=== PATIENT | female | born 1980 | race Caucasian/White ===

== ENCOUNTER 2020-07-09 12:16 | Outpatient (REF) | payer MEDICAID, SELFPAY ==
[2020-07-09 13:20] LABS: Hematocrit 27.6 % (37-47); Hemoglobin 9.5 g/dl (12.0-16.0); Mean Corpuscular HGB Conc 34.4 g/dl (31.0-35.0); Mean Corpuscular Hemoglobin 34.8 pg (27.0-33.0); Mean Corpuscular Volume 101.1 fL (80-98); Mean Platelet Volume 9.5 fL (9.4-12.3); Platelet Count 300 X10*3/uL (160-400); Red Blood Count 2.73 X10*6/uL (4.20-5.50); Red Cell Distribution Width 14.6 % (11.0-16.0); White Blood Count 8.9 X10*3/uL (4.8-10.8)
[2020-07-09 13:45] LABS: Alanine Aminotransferase 13 U/L (0-31); Albumin Level 4.2 g/dL (3.5-5.0); Alkaline Phosphatase 68 U/L (39-117); Anion Gap 12 (12-20); Aspartate Amino Transferase 25 U/L (5-31); Blood Urea Nitrogen 9 mg/dL (9-16); Calcium 8.9 mg/dL (8.4-10.2); Carbon Dioxide 24 mmol/L (22-29); Chloride 107 mmol/L (96-108); Estimated Glomerular Filt Rate > 60; Glucose Random 84 mg/dL (60-115); Sodium 138 mmol/L (135-145); Total Protein 7.9 g/dL (6.5-8.0)
[2020-07-09 14:05] LABS: Ferritin 463 ng/mL (10-122); Thyroid Stimulating Hormone 1.33 uIU/mL (0.32-4.0)
[2020-07-09 14:06] LABS: Vitamin B12 233 pg/mL (200-900)
== END 2020-07-09 12:17 | disposition home or self-care (01) ==
LOC: HO.LAB 12:16
PROVIDERS: PCP Family Medicine; Visit Provider Family Medicine
DX: D57.1 Sickle-cell disease without crisis (principal); E55.9 Vitamin D deficiency, unspecified; R63.0 Anorexia; R63.4 Abnormal weight loss; Z68.21 Body mass index [BMI] 21.0-21.9, adult
CPT/HCPCS: 36415; 80053; 82306; 82607; 82728; 84134; 84443; 85027

== ENCOUNTER 2020-12-25 15:21 | Outpatient (REF) | payer MEDICAID, SELFPAY ==
--- NOTE | ~2020-12-25 | XR_ITS ---
EXAMINATION: XR HUMERUS, LEFT CLINICAL INFORMATION: Contusion left upper arm COMPARISON: Left shoulder x-ray March 2011 TECHNIQUE: AP and lateral views of the left humerus. FINDINGS: No fracture or dislocation is seen. 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 There is heterogeneous attenuation of the left humeral head questionable for AVN. This is unchanged from previous exam. Soft tissues are unremarkable. XR/XR humerus LT IMPRESSION: No fracture or dislocation seen. 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
== END 2020-12-25 15:22 | disposition home or self-care (01) ==
LOC: HO.XRAY 15:21
PROVIDERS: Absent Provider Family Medicine; PCP Family Medicine; Visit Provider Emergency Medicine
DX: S40.022A Contusion of left upper arm, initial encounter (principal)
CPT/HCPCS: 73060

== ENCOUNTER 2021-03-06 10:23 | Outpatient (REF) | payer MEDICAID, SELFPAY | END 2021-03-06 10:24 | disposition home or self-care (01) | LOC: HO.LAB 10:23 | PROVIDERS: Visit Provider Internal Medicine | DX: Z20.822 Contact with and (suspected) exposure to COVID-19 (principal) | CPT/HCPCS: C9803; U0003; U0005 ==

== ENCOUNTER 2021-03-20 13:00 | Outpatient (REF) | payer MEDICAID, SELFPAY ==
[2021-03-20 15:19] LABS: Binax Now Covid-19 Ag Negative (Negative)
[2021-03-20 15:20] LABS: Binax Internal Control QC Valid
== END 2021-03-20 13:01 | disposition home or self-care (01) ==
LOC: HO.LAB 13:00
PROVIDERS: Visit Provider Internal Medicine
DX: Z20.822 Contact with and (suspected) exposure to COVID-19 (principal)
CPT/HCPCS: C9803

== ENCOUNTER 2021-11-17 16:04 | Emergency (ER) | payer MEDICAID, SELFPAY ==
--- NOTE | ~2021-11-17 | XR_ITS ---
EXAMINATION: XR CHEST CLINICAL INFORMATION: Cough and chest discomfort COMPARISON: None TECHNIQUE: 2 views of the chest were obtained. 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 No significant abnormality is noted involving the heart, lungs, mediastinum, or soft tissues. XR/XR chest 2V IMPRESSION: No infiltrate. Correlate clinically concerning acute chest syndrome in this patient with changes of sickle cell disease..
[2021-11-17 16:30] VITALS: BP 115/85; PULSE 119; RESP 16; TEMP 37.7; O2SAT 97
[2021-11-17] MEDS: Acetaminophen 325 MG TABLET 650 MG PO (16:44)
[2021-11-17] MEDS: Ondansetron ODT 4 MG TAB.RAPDIS TRANSLINGU (16:45)
--- NOTE | 2021-11-17 17:25 | ED_ITS ---
HPI - URI/Sore Throat General Chief Complaint: Upper Respiratory Symptoms <Diana Ramos NP - Last Filed: 11/17/21 18:57> Stated Complaint: covid + <Diana Ramos NP - Last Filed: 11/17/21 18:57> Time Seen by Provider: 11/17/21 17:25 <Diana Ramos NP - Last Filed: 11/17/21 18:57> Source: patient and translator/interpreter <Diana Ramos NP - Last Filed: 11/17/21 18:57> Mode of arrival: ambulatory <iDana Ramos NP - Last Filed: 11/17/21 18:57> Limitations: language barrier <Diana Ramos NP - Last Filed: 11/17/21 18:57> History of Present Illness HPI Narrative: 41-year-old female with a history of sickle cell disease presents with reports of nausea, chills, body aches, cough, chest discomfort with coughing and headache which began last night. She took a home COVID test which was positive. No shortness of breath, vomiting, diarrhea, abdominal pain, skin rash, neck pain/stiffness. She has received 3 COVID vaccinations of Moderna. She has not had a sickle cell crisis and many years. She has no history of acute chest. She denies this feeling like a sickle cell crisis and states this feels different. She its taking folic acid/hydroxyurea daily. <Diana Ramos NP - Last Filed: 11/17/21 18:57> Related Data Home Medications: Home Medications Medication Instructions Recorded Confirmed calcium 600 mg capsule 600 mg PO DAILY 06/01/20 06/10/21 fluticasone propionate 50 1 spray intranasal BID 06/01/20 06/10/21 mcg/actuation nasal spray,suspension folic acid 5 mg capsule 5 mg PO QWEEK 06/01/20 06/10/21 hydroxyurea (sickle cell) 400 mg 400 mg PO DAILY 06/01/20 06/10/21 capsule loratadine 10 mg tablet 10 mg PO DAILY 06/01/20 06/10/21 morphine 15 mg immediate release 15 mg PO Q4H PRN Pain 06/01/20 06/10/21 tablet oxycodone 10 mg tablet 10 mg PO BID PRN Pain 06/01/20 06/10/21 epinephrine 0.3 mg/0.3 mL 0.3 mg IM Q4H PRN Allergic Reaction 06/10/21 06/10/21 injection, auto-injector (EpiPen) <EDGAR Nova Last Filed: 11/17/21 18:57> Allergies/Adverse Reactions: Allergies Allergy/AdvReac Type Severity Reaction Status Date / Time ibuprofen [IBUPROFEN] Allergy Intermediate HIVES, Unverified 06/10/21 11:49 FACIAL SWELLING ketorolac [From TORADOL] Allergy Intermediate SWELLING Unverified 06/10/21 11:49 <Diana Ramos NP - Last Filed: 11/17/21 18:57> Review of Systems Review of Systems: Yes all other systems are reviewed and are negative <EDGAR Nova Last Filed: 11/17/21 18:57> Constitutional: Constitutional: Reports no additional constitutional complaints, Reports body ache(s), Reports chills, Denies fever(s), Reports headache(s) and Denies weakness <Diana Ramos NP - Last Filed: 11/17/21 18:57> Eyes: Eyes: Reports no additional eye complaints and Denies change in vision <EDGAR Nova Last Filed: 11/17/21 18:57> ENT: Reports system reviewed and no additional complaints, except as d ocumented, Denies dizziness, Reports headache(s), Denies nasal congestion, Denies nasal discharge and Denies neck pain <Diana Ramos NP - Last Filed: 11/17/21 18:57> Cardiovascular: Cardiovascular: Reports no additional cardiovascular complaints, Reports chest pain, Denies leg edema and Denies dyspnea <EDGAR Nova Last Filed: 11/17/21 18:57> Respiratory: Respiratory: Reports no additional respiratory complaints, Reports cough and Denies dyspnea <EDGAR Nova Last Filed: 11/17/21 18:57> Gastrointestinal: Gastrointestinal: Reports no additional gastrointestinal complaints, Denies abdominal pain, Denies diarrhea, Reports nausea and Denies vomiting <Diana Ramos NP - Last Filed: 11/17/21 18:57> Genitourinary: Genitourinary: Reports no additional female genitourinary complaints and Denies urinary incontinence <Diana Ramos NP - Last Filed: 11/17/21 18:57> Musculoskeletal: Musculoskeletal: Reports no additional musculoskeletal complaints, Denies back pain, Denies arthralgias, Denies joint swelling, Denies neck pain, Denies numbness and Denies tingling <Diana Ramos NP - Last Filed: 11/17/21 18:57> Integumentary/Breasts: Skin/Breast: Reports system reviewed and no additional complaints, except as docu and Denies rash <Diana Ramos NP - Last File d: 11/17/21 18:57> Neurologic: Denies Abnormal speech present, Denies dizziness, Reports headache(s), Denies numbness, Denies tingling and Denies weakness <Diana Ramos NP - Last Filed: 11/17/21 18:57> [facility] Past Medical History Attestation statement: The following information was validated with the patient. <Diana palacios NP - Last Filed: 11/17/21 18:57> Source: old records reviewed and nursing notes reviewed <Diana Ramos NP - Last Filed: 11/17/21 18:57> Medical History: Medical History Hx of osteomyelitis <Diana Ramos NP - Last Filed: 11/17/21 18:57> Surgical History: Surgical History H/O adenoidectomy History of surgery on left wrist <Diana Ramos NP - Last Filed: 11/17/21 18:57> Family History Family History: Family History Mother Hx of breast cancer <Diana Ramos NP - Last Filed: 11/17/21 18:57> Social History Social History: Social History Household Members: None Housing: House Are you a primary campground caretaker to a significant other at home: No Do you presently have visiting nurse 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 home 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 (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) Alcohol intake: never Patient Tobacco Use Status: Never used Tobacco Advance Directives: No Advance Directives Information Provided: Yes service: No Current occupational status: unemployed <Diana Ramos NP - Last Filed: 11/17/21 18:57> Physical Exam Vital Signs: Vital Signs: Last Vital Signs Temp 99.8 F 11/17/21 16:30 Pulse 119 H 11/17/21 16:30 Resp 16 11/17/21 16:30 BP 115/85 11/17/21 16:30 Pulse Ox 97 11/17/21 16:30 O2 Del Method 11/17/21 16:30 BMI result Body Mass Index 20.0 <Diana Ramos NP - Last Filed: 11/17/21 18:57> Vital Signs: Last Vital Signs Temp 99.8 F 11/17/21 16:30 Pulse 119 H 11/17/21 16:30 Resp 16 11/17/21 16:30 BP 115/85 11/17/21 16:30 Pulse Ox 97 11/17/21 16:30 O2 Del Method 11/17/21 16:30 BMI result Body Mass Index 20.0 <TEODORA Irvin - Last Filed: 11/17/21 19:20> Const: General: cooperative, healthy appearing, comfortable and no acute distress <Diana Ramos NP - Last Filed: 11/17/21 18:57> Orientation/consciousness: patient oriented x3 <Diana Ramos NP - Last Filed: 11/17/21 18:57> Limitations: no limitations <Diana Ramos NP - Last Filed: 11/17/21 18:57> HEENT: Head: Yes normal to inspection <Diana Ramos NP - Last Filed: 11/17/21 18:57> Ears: hearing grossly normal bilaterally <Diana Ramos NP - Last Filed: 11/17/21 18:57> General nose exam: Normal external nose present <Diana Ramos NP - Last Filed: 11/17/21 18:57> Face and sinus: Yes normal facial exam <Diana Ramos NP - Last Filed: 11/17/21 18:57> Mouth: Normal oral and palatal mucosa present <Diana Ramos NP - Last Filed: 11/17/21 18:57> Throat: Yes posterior oropharynx normal <Diana Ramos NP - Last Filed: 11/17/21 18:57> Eyes: General: appearance normal, both eyes and all related structures <Diana Ramso NP - Last Filed: 11/17/21 18:57> Pupils: Equal, round and reactive pupils present <Diana Ramos NP - Last Filed: 11/17/21 18:57> Neck: Neck: Yes normal visual inspection <Diana Ramos NP - Last Filed: 11/17/21 18:57> Chest: Chest palpation & inspection: normal inspection of the chest <Diana Ramos NP - Last Filed: 11/17/21 18:57> Resp: Effort & Inspection: normal respiratory effort <Diana Ramos NP - Last Filed: 11/17/21 18:57> Auscultation: clear to auscultation bilaterally <Diana Ramos NP - Last Filed: 11/17/21 18:57> Cardio: Rate: tachycardic <Diana Ramos NP - Last Filed: 11/17/21 18:57> Rhythm: regular rhythm <Diana Ramos NP - Last Filed: 11/17/21 18:57> Peripheral pulses: Peripheral pulses 2+ throughout <Diana Ramos NP - Last Filed: 11/17/21 18:57> GI: Inspection: Yes normal to inspection <Diana Ramos NP - Last Filed: 11/17/21 18:57> Palpation (GI): Soft to palpation and nontender <Diana Ramos NP - Last Filed: 11/17/21 18:57> Auscultation: normal bowel sounds <Diana Ramos NP - Last Filed: 11/17/21 18:57> Back/Spine/Pelvis: Thoracic/Lumbar Spine: thoracic and lumbar spine normal to inspection <Diana Ramos NP - Last Filed: 11/17/21 18:57> Skin: General skin exam: no rashes or lesions noted <Diana Ramos NP - Last Filed: 11/17/21 18:57> Neuro: General: patient oriented x3, no focal motor deficits and normal sensation to monofilament <Diana Ramos NP - Last Filed: 11/17/21 18:57> Cranial nerves: Yes Equal, round and reactive pupils present <Diana Khan i CERTIFIED HAND THERAPIST - Last Filed: 11/17/21 18:57> Cognition (Neuro): normal cognition <Diana Ramos NP - Last Filed: 11/17/21 18:57> Speech: No Abnormal speech present <Diana Ramos NP - Last Filed: 0 11/17/21 18:57> Gait exam (Neuro): Normal gait present <Diana Ramos NP - Last Filed: 11/17/21 18:57> Motor exam (neuro): 5/5 motor strength present throughout <Diana Ramos NP - Last Filed: 11/17/21 18:57> Extrem: General: Yes normal to inspection <Diana Ramos NP - Last Filed: 11/17/21 18:57> Course Course Course Narrative: 1899-Sign out to Alisha ARAIZA pending labs, EKG, re-evaluation <Diana Ramos NP - Last Filed: 11/17/21 18:57> 190-Sign out to Alisha ARAIZA pending labs, EKG, re-evaluation 7 - Patient is a 41 year old female presenting to the emergency department today with COVID-19. Patient's physical exam was unremarkable. Patient's blood work was unremarkable. Patient's EKG was unremarkable. Patient's chest x-ray showed no acute process. I explained my physical exam findings as well as all test results to the patient. I answered all questions asked by the patient. Patient received IV fluids and PO Tylenol which she stated helped her symptoms significantly. I stressed the importance of the patient taking her medication as prescribed. I stressed the importance of the patient following up with her primary care provider. I stressed the importance of the patient returning to the emergency department immediately if her symptoms were to worsen or if she were to develop any dizziness, shortness of breath, difficulty breathing, chest pain, blurry vision, loss of vision, nausea, vomiting, abdominal pain, fever, chills, back pain, or any other complaints. Patient verbalized agreement and understanding with this treatment plan and discharge. <TEODORA Irvin - Last Filed: 11/17/21 19:20> MDM - URI/Sore Throat MDM Narrative Medical decision making narrative: 41-year-old female who took a home COVID test that was positive who has symptoms since last night of cough, chest discomfort with coughing, body aches, chills, nausea, headache. On arrival patient has a low-grade fever of 99.8 and some tachycardia with a heart rate of 119. She tells me decreased p.o. intake secondary to nausea. No vomiting or diarrhea. Patient received Zofran and Tylenol at triage. Patient does have some mild chest discomfort with coughing only. Not pleuritic in nature. No calf swelling, calf pain, shortness of breath. Does not seem c/w with acute chest. Patient states these symptoms do not feel like her sickle cell crisis. Will check COVID screen, chest x-ray, EKG. Patient would qualify for Paxlovid so I will check some labs on her. Additionally will check reticulocyte count. Patient and family were provided a fax sheet on Paxlovid to review. For the tachycardia patient will receive 2 L of IV fluid. -Doubt PE. NO tachypnea, hypoxia, clinical findings concerning for DVT, PE <Diana Ramos NP - Last Filed: 11/17/21 18:57> Medical Records Attestation: I reviewed the patient's medical records. <Diana Ramos NP - Last Filed: 11/17/21 18:57> Lab Data Attestation: I reviewed the patient's lab results. <Diana Ramos NP - Last Filed: 11/17/21 18:57> Result diagrams: : 11/17/21 16:39 11/17/21 16:39 <Diana Ramos CERTIFIED HAND THERAPIST - Last Filed: 11/17/21 18:57> Labs: Lab Results 11/17/21 11/17/21 11/17/21 Range/Units 16:39 16:39 16:39 WBC 6.3 (4.8-10.8) X10*3/uL RBC 2.80 L (4.20-5.50) X10*6/uL Hgb 9.8 L (12.0-16.0) g/dl Hct 27.3 L (37.0-47.0) % MCV 97.5 (80.0-98.0) fL MCH 35.0 H (27.0-33.0) pg MCHC 35.9 H (31.0-35.0) g/dl RDW 15.5 (11.0-16.0) % Plt Count 256 (160-400) X10*3/uL MPV 10.1 (9.4-12.3) fL Immature Gran % (Auto) Cancelled Neut % (Auto) Cancelled Lymph % (Auto) Cancelled [place] % (Auto) Cancelled Eos % (Auto) Cancelled Baso % (Auto) Cancelled Lymph # (Auto) Cancelled [place] # (Auto) Cancelled Eos # (Auto) Cancelled Baso # (Auto) Cancelled Abs Immat Gran (auto) Cancelled Absolute Neuts (auto) Cancelled Absolute Nucleated RBC 0.920 H (0.0-0.012) X10*3/uL Nucleated RBC % (auto) 14.7 H (0.0-0.2) /100WBC Neutrophils % (Manual) 68 (45-73) % Band Neutrophils % 3 (3-5) % Lymphocytes % (Manual) 14 L (20-40) % Monocytes % (Manual) 15 H (2-11) % Abs Neuts (Manual) 4.5 (2.0-8.3) X10*3/uL Lymphocytes # (Manual) 0.9 L (1.2-4.9) X10*3/uL Monocytes # (Manual) 0.9 (0.1-1.2) X10*3/uL Nucleated RBCs 12 H (0-0) /100WBC Platelet Estimate NORMAL (NORMAL) Plt Morphology Comment NORMAL RBC Morphology NOTED Polychromasia 1+ (0-2) /OIF Microcytosis 1+ (5-14) /OIF Macrocytosis 2+ (15-30) /OIF Sickle Cells 3+ (>5) /OIF Target Cells 1+ (5-14) /OIF Tear Drop Cells 2+ (3-5) /OIF Absolute Retic (0.026-0.095) X10*6/uL Percent Retic (0.5-1.8) % Immature Retic Fraction (3.0-15.9) % Retic Hgb Equivalent (30.0-35.0) pg Sodium 140 (135-145) mmol/L Potassium 3.7 (3.3-5.1) mmol/L Chloride 106 (96-108) mmol/L Carbon Dioxide 20 L (22-29) mmol/L Anion Gap 18 (12-20) BUN 6 L (9-16) mg/dL Creatinine 0.77 (0.5-1.4) mg/dL Estim Creat Clear Calc 78.8 Estimated GFR > 60 Random Glucose 105 (60-115) mg/dL Calcium 8.9 (8.4-10.2) mg/dL Total Bilirubin 1.0 (0.0-1.0) mg/dL Direct Bilirubin 0.4 (0.0-0.5) mg/dL AST 72 H (5-31) U/L ALT 54 H (0-31) U/L Alkaline Phosphatase 116 D (39-117) U/L Troponin I High Sens (<3.5-17.0) ng/L Total Protein 8.4 H (6.5-8.0) g/dL Albumin 4.3 (3.5-5.0) g/dL COVID-19 (LILLIAN) Positive A (Negative) COVID-19 Clin Com See Note 11/17/21 11/17/21 Range/Units 16:39 16:39 WBC (4.8-10.8) X10*3/uL RBC (4.20-5.50) X10*6/uL Hgb (12.0-16.0) g/dl Hct (37.0-47.0) % MCV (80.0-98.0) fL MCH (27.0-33.0) pg MCHC (31.0-35.0) g/dl RDW (11.0-16.0) % Plt Count (160-400) X10*3/uL MPV (9.4-12.3) fL Immature Gran % (Auto) Neut % (Auto) Lymph % (Auto) [place] % (Auto) Eos % (Auto) Baso % (Auto) Lymph # (Auto) [place] # (Auto) Eos # (Auto) Baso # (Auto) Abs Immat Gran (auto) Absolute Neuts (auto) Absolute Nucleated RBC (0.0-0.012) X10*3/uL Nucleated RBC % (auto) (0.0-0.2) /100WBC Neutrophils % (Manual) (45-73) % Band Neutrophils % (3-5) % Lymphocytes % (Manual) (20-40) % Monocytes % (Manual) (2-11) % Abs Neuts (Manual) (2.0-8.3) X10*3/uL Lymphocytes # (Manual) (1.2-4.9) X10*3/uL Monocytes # (Manual) (0.1-1.2) X10*3/uL Nucleated RBCs (0-0) /100WBC Platelet Estimate (NORMAL) Plt Morphology Comment RBC Morphology Polychromasia /OIF Microcytosis /OIF Macrocytosis /OIF Sickle Cells /OIF Target Cells /OIF Tear Drop Cells /OIF Absolute Retic 0.178 H (0.026-0.095) X10*6/uL Percent Retic 6.3 H (0.5-1.8) % Immature Retic Fraction 38.7 H (3.0-15.9) % Retic Hgb Equivalent 39.5 H (30.0-35.0) pg Sodium (135-145) mmol/L Potassium (3.3-5.1) mmol/L Chloride (96-108) mmol/L Carbon Dioxide (22-29) mmol/L Anion Gap (12-20) BUN (9-16) mg/dL Creatinine (0.5-1.4) mg/dL Estim Creat Clear Calc Estimated GFR Random Glucose (60-115) mg/dL Calcium (8.4-10.2) mg/dL Total Bilirubin (0.0-1.0) mg/dL Direct Bilirubin (0.0-0.5) mg/dL AST (5-31) U/L ALT (0-31) U/L Alkaline Phosphatase (39-117) U/L Troponin I High Sens < 3.5 (<3.5-17.0) ng/L Total Protein (6.5-8.0) g/dL Albumin (3.5-5.0) g/dL COVID-19 (LILLIAN) (Negative) COVID-19 Clin Com <Diana Ramos NP - Last Filed: 11/17/21 18:57> Lab Results 11/17/21 11/17/21 11/17/21 Range/Units 16:39 16:39 16:39 WBC 6.3 (4.8-10.8) X10*3/uL RBC 2.80 L (4.20-5.50) X10*6/uL Hgb 9.8 L (12.0-16.0) g/dl Hct 27.3 L (37.0-47.0) % MCV 97.5 (80.0-98.0) fL MCH 35.0 H (27.0-33.0) pg MCHC 35.9 H (31.0-35.0) g/dl RDW 15.5 (11.0-16.0) % Plt Count 256 (160-400) X10*3/uL MPV 10.1 (9.4-12.3) fL Immature Gran % (Auto) Cancelled Neut % (Auto) Cancelled Lymph % (Auto) Cancelled [place] % (Auto) Cancelled Eos % (Auto) Cancelled Baso % (Auto) Cancelled Lymph # (Auto) Cancelled [place] # (Auto) Cancelled Eos # (Auto) Cancelled Baso # (Auto) Cancelled Abs Immat Gran (auto) Cancelled Absolute Neuts (auto) Cancelled Absolute Nucleated RBC 0.920 H (0.0-0.012) X10*3/uL Nucleated RBC % (auto) 14.7 H (0.0-0.2) /100WBC Neutrophils % (Manual) 68 (45-73) % Band Neutrophils % 3 (3-5) % Lymphocytes % (Manual) 14 L (20-40) % Monocytes % (Manual) 15 H (2-11) % Abs Neuts (Manual) 4.5 (2.0-8.3) X10*3/uL Lymphocytes # (Manual) 0.9 L (1.2-4.9) X10*3/uL Monocytes # (Manual) 0.9 (0.1-1.2) X10*3/uL Nucleated RBCs 12 H (0-0) /100WBC Platelet Estimate NORMAL (NORMAL) Plt Morphology Comment NORMAL RBC Morphology NOTED Polychromasia 1+ (0-2) /OIF Microcytosis 1+ (5-14) /OIF Macrocytosis 2+ (15-30) /OIF Sickle Cells 3+ (>5) /OIF Target Cells 1+ (5-14) /OIF Tear Drop Cells 2+ (3-5) /OIF Absolute Retic (0.026-0.095) X10*6/uL Percent Retic (0.5-1.8) % Immature Retic Fraction (3.0-15.9) % Retic Hgb Equivalent (30.0-35.0) pg Sodium 140 (135-145) mmol/L Potassium 3.7 (3.3-5.1) mmol/L Chloride 106 (96-108) mmol/L Carbon Dioxide 20 L (22-29) mmol/L Anion Gap 18 (12-20) BUN 6 L (9-16) mg/dL Creatinine 0.77 (0.5-1.4) mg/dL Estim Creat Clear Calc 78.8 Estimated GFR > 60 Random Glucose 105 (60-115) mg/dL Calcium 8.9 (8.4-10.2) mg/dL Total Bilirubin 1.0 (0.0-1.0) mg/dL Direct Bilirubin 0.4 (0.0-0.5) mg/dL AST 72 H (5-31) U/L ALT 54 H (0-31) U/L Alkaline Phosphatase 116 D (39-117) U/L Troponin I High Sens (<3.5-17.0) ng/L Total Protein 8.4 H (6.5-8.0) g/dL Albumin 4.3 (3.5-5.0) g/dL COVID-19 (LILLIAN) Positive A (Negative) COVID-19 Clin Com See Note 11/17/21 11/17/21 Range/Units 16:39 16:39 WBC (4.8-10.8) X10*3/uL RBC (4.20-5.50) X10*6/uL Hgb (12.0-16.0) g/dl Hct (37.0-47.0) % MCV (80.0-98.0) fL MCH (27.0-33.0) pg MCHC (31.0-35.0) g/dl RDW (11.0-16.0) % Plt Count (160-400) X10*3/uL MPV (9.4-12.3) fL Immature Gran % (Auto) Neut % (Auto) Lymph % (Auto) [place] % (Auto) Eos % (Auto) Baso % (Auto) Lymph # (Auto) [place] # (Auto) Eos # (Auto) Baso # (Auto) Abs Immat Gran (auto) Absolute Neuts (auto) Absolute Nucleated RBC (0.0-0.012) X10*3/uL Nucleated RBC % (auto) (0.0-0.2) /100WBC Neutrophils % (Manual) (45-73) % Band Neutrophils % (3-5) % Lymphocytes % (Manual) (20-40) % Monocytes % (Manual) (2-11) % Abs Neuts (Manual) (2.0-8.3) X10*3/uL Lymphocytes # (Manual) (1.2-4.9) X10*3/uL Monocytes # (Manual) (0.1-1.2) X10*3/uL Nucleated RBCs (0-0) /100WBC Platelet Estimate (NORMAL) Plt Morphology Comment RBC Morphology Polychromasia /OIF Microcytosis /OIF Macrocytosis /OIF Sickle Cells /OIF Target Cells /OIF Tear Drop Cells /OIF Absolute Retic 0.178 H (0.026-0.095) X10*6/uL Percent Retic 6.3 H (0.5-1.8) % Immature Retic Fraction 38.7 H (3.0-15.9) % Retic Hgb Equivalent 39.5 H (30.0-35.0) pg Sodium (135-145) mmol/L Potassium (3.3-5.1) mmol/L Chloride (96-108) mmol/L Carbon Dioxide (22-29) mmol/L Anion Gap (12-20) BUN (9-16) mg/dL Creatinine (0.5-1.4) mg/dL Estim Creat Clear Calc Estimated GFR Random Glucose (60-115) mg/dL Calcium (8.4-10.2) mg/dL Total Bilirubin (0.0-1.0) mg/dL Direct Bilirubin (0.0-0.5) mg/dL AST (5-31) U/L ALT (0-31) U/L Alkaline Phosphatase (39-117) U/L Troponin I High Sens < 3.5 (<3.5-17.0) ng/L Total Protein (6.5-8.0) g/dL Albumin (3.5-5.0) g/dL COVID-19 (LILLIAN) (Negative) COVID-19 Clin Com <TEODORA Irvin - Last Filed: 11/17/21 19:20> Imaging Data Chest x-ray: Attestation: I personally reviewed and interpreted this imaging study as follows: <Diana Ramos NP - Last Filed: 11/17/21 18:57> Radiologist's impression: EXAMINATION: XR CHEST CLINICAL INFORMATION: Cough and chest discomfort COMPARISON: None TECHNIQUE: 2 views of the chest were obtained. 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 No significant abnormality is noted involving the heart, lungs, mediastinum, or soft tissues. XR/XR chest 2V IMPRESSION: No infiltrate. Correlate clinically concerning acute chest syndrome in this patient with changes of sickle cell disease.. <Diana Ramos NP - Last Filed: 11/17/21 18:57> Discharge Plan Discharge Clinical Impression: COVID-19 <Diana Ramos NP - Last Filed: 11/17/21 18:57> Patient Disposition: Home, Self-Care <Diana Ramos NP - Last Filed: 11/17/21 18:57> Instructions: NABEELID-19 (Coronavirus Disease 2019) (ED) <Diana Ramos NP - Last Filed: 11/17/21 18:57> Additional Instructions: Quarantine for 5 days Increase fluids, rest Take Tylenol for pain or fever Follow up with your primary care provider. Return to the emergency department immediately if your symptoms worsen or if you develop any dizziness, shortness of breath, difficulty breathing, chest pain, blurry vision, loss of vision, nausea, vomiting, abdominal pain, fever, chills, back pain, or any other complaints. Cuarentena por 5 d?as Aumentar l?quidos, descansar [place] Tylenol para el dolor o la fiebre. Barry un seguimiento con swan proveedor de atenci?n primaria. Regrese al departamento de emergencias de inmediato si rani s?ntomas empeoran o si presenta mareos, falta de aire, dificultad para respirar, dolor de pecho, visi?n borrosa, p?rdida de la visi?n, n?useas, v?mitos, dolor abdominal, fiebre, escalofr?os, dolor de espalda o cualquier otras quejas. <Diana Ramos NP - Last Filed: 11/17/21 18:57> Prescriptions: No Action calcium 600 mg Capsule 600 mg PO DAILY folic acid 5 mg Capsule 5 mg PO QWEEK morphine 15 mg Tablet 15 mg PO Q4H PRN (Reason: Pain) fluticasone propionate 50 mcg/actuation [place],Suspension 1 spray INTRANASAL BID hydroxyurea (sickle cell) 400 mg Capsule 400 mg PO DAILY loratadine 10 mg Tablet 10 mg PO DAILY oxycodone 10 mg Tablet 10 mg PO BID PRN (Reason: Pain) epinephrine [EpiPen] 0.3 mg/0.3 mL Auto-Injector 0.3 mg IM Q4H PRN (Reason: Allergic Reaction) <Diana Ramos NP - Last Filed: 11/17/21 18:57> Referrals: Sanjuana Anderson MD [Primary Care Provider] - <Diana Ramos NP - Last Filed: 11/17/21 18:57> Stand Alone Forms: Work/School Release <Diana Ramos NP - Last Filed: 11/17/21 18:57> Print Language: Occitan <Diana Ramos CERTIFIED HAND THERAPIST - Last Filed: 11/17/21 18:57>
[2021-11-17 18:39] LABS: Hematocrit 27.3 % (37.0-47.0); Hemoglobin 9.8 g/dl (12.0-16.0); Immature Retic Fraction 38.7 % (3.0-15.9); Mean Corpuscular HGB Conc 35.9 g/dl (31.0-35.0); Mean Corpuscular Volume 97.5 fL (80.0-98.0); Mean Platelet Volume 10.1 fL (9.4-12.3); Platelet Count 256 X10*3/uL (160-400); Red Cell Distribution Width 15.5 % (11.0-16.0); Retic HGB Equivalent 39.5 pg (30.0-35.0); Reticulocyte Percent 6.3 % (0.5-1.8); Reticulocytes Absolute 0.178 X10*6/uL (0.026-0.095); White Blood Count 6.3 X10*3/uL (4.8-10.8)
[2021-11-17] MEDS: 0.9 % Sodium Chloride 1,000 ML 999 ML IV (18:42)
[2021-11-17 18:55] LABS: Alanine Aminotransferase 54 U/L (0-31); Albumin Level 4.3 g/dL (3.5-5.0); Alkaline Phosphatase 116 U/L (39-117); Anion Gap 18 (12-20); Aspartate Amino Transferase 72 U/L (5-31); Bilirubin Direct 0.4 mg/dL (0.0-0.5); Blood Urea Nitrogen 6 mg/dL (9-16); COVID-19 Test Positive (Negative); Calcium 8.9 mg/dL (8.4-10.2); Carbon Dioxide 20 mmol/L (22-29); Chloride 106 mmol/L (96-108); Creatinine Clr Calc Pharmacy 78.8; Estimated Glomerular Filt Rate > 60; Glucose Random 105 mg/dL (60-115); IDNOW Serial# 16C4AD1C; Potassium 3.7 mmol/L (3.3-5.1); Sodium 140 mmol/L (135-145); Total Protein 8.4 g/dL (6.5-8.0)
[2021-11-17 18:57] LABS: NRBC Pct Auto 14.7 /100WBC (0.0-0.2)
[2021-11-17 18:58] LABS: Troponin-I High Sensitivity < 3.5 ng/L (<3.5-17.0)
[2021-11-17 19:03] LABS: Band Neutrophils Percent 3 % (3-5); Lymphocytes Absolute Manual 0.9 X10*3/uL (1.2-4.9); Lymphocytes Percent Manual 14 % (20-40); Macrocytosis 2+ (15-30) /OIF; Monocytes Absolute Manual 0.9 X10*3/uL (0.1-1.2); Monocytes Percent Manual 15 % (2-11); Neutrophils Absolute Manual 4.5 X10*3/uL (2.0-8.3); Neutrophils Percent Manual 68 % (45-73); Nucleated Red Blood Cells 12 /100WBC (0-0); RBC Morphology NOTED
[2021-11-17 19:04] LABS: Microcytosis 1+ (5-14) /OIF; Sickle Cells 3+ (>5) /OIF
[2021-11-17 19:05] LABS: Target Cells 1+ (5-14) /OIF
[2021-11-17 19:06] LABS: Tear Drop Cells 2+ (3-5) /OIF
[2021-11-17 19:07] LABS: Polychromasia 1+ (0-2) /OIF
[2021-11-17 19:08] LABS: Platelet Estimate NORMAL (NORMAL); Platelet Morphology Comment NORMAL
== END 2021-11-17 21:30 | disposition home or self-care (01) ==
PROVIDERS: Nurse Practitioner Family; Emergency Provider Internal Medicine; PCP Family Medicine
DX: U07.1 COVID-19 (principal); Z79.899 Other long term (current) drug therapy
CPT/HCPCS: 36415; 71046; 80048; 80076; 84484; 85007; 85027; 85045; 87635; 99283

== ENCOUNTER 2021-11-29 10:57 | Emergency (ER) | payer MEDICAID, SELFPAY ==
[2021-11-29 10:59] VITALS: BP 109/79; PULSE 88; RESP 18; TEMP 36.6; O2SAT 98; BMI 18.6
--- NOTE | 2021-11-29 11:01 | ECG_ITS ---
Test Reason : chest pain Blood Pressure : / mmHG Vent. Rate : 086 BPM Atrial Rate : 086 BPM P-R Int : 154 ms QRS Dur : 058 ms QT Int : 366 ms P-R-T Axes : 054 021 040 degrees QTc Int : 437 ms Normal sinus rhythm Normal ECG When compared with ECG of 22-FEB-2018 15:46, No significant change was found Referred By: Generic ED Physician Electronically Signed By:ALDAIR RODRIGUEZ
[2021-11-29 11:14] LABS: MANUAL DIFF FLAG NO
[2021-11-29 11:17] LABS: Basophils Percent Auto 0.2 % (0-2); Eosinophils Absolute Auto 0.1 X10*3/uL (0.0-0.4); Eosinophils Percent Auto 1.3 % (0-4); Hematocrit 29.1 % (37.0-47.0); Imm Gran Abs Auto 0.02 X10*3/uL (0.00-0.03); Imm Gran Pct Auto 0.3 % (0.0-0.4); Lymphocytes Absolute Auto 1.7 X10*3/uL (1.2-4.9); Lymphocytes Percent Auto 27.1 % (20-40); Mean Corpuscular HGB Conc 34.4 g/dl (31.0-35.0); Mean Corpuscular Hemoglobin 33.9 pg (27.0-33.0); Mean Corpuscular Volume 98.6 fL (80.0-98.0); Mean Platelet Volume 9.9 fL (9.4-12.3); Monocytes Absolute Auto 0.8 X10*3/uL (0.1-1.2); Monocytes Percent Auto 12.1 % (2-11); Neutrophils Absolute Auto 3.7 x10*3/uL (2.0-8.3); Platelet Count 312 X10*3/uL (160-400); Red Blood Count 2.95 X10*6/uL (4.20-5.50); White Blood Count 6.3 X10*3/uL (4.8-10.8)
[2021-11-29 11:18] LABS: NRBC Pct Auto 4.9 /100WBC (0.0-0.2)
[2021-11-29 11:27] LABS: COVID-19 Test Positive (Negative); IDNOW Serial# 16C4AD1C
[2021-11-29 11:32] LABS: Alanine Aminotransferase 27 U/L (0-31); Albumin Level 4.3 g/dL (3.5-5.0); Alkaline Phosphatase 82 U/L (39-117); Anion Gap 13 (12-20); Aspartate Amino Transferase 29 U/L (5-31); Bilirubin Direct 0.5 mg/dL (0.0-0.5); Bilirubin Total 1.1 mg/dL (0.0-1.0); Blood Urea Nitrogen 6 mg/dL (9-16); Calcium 9.1 mg/dL (8.4-10.2); Carbon Dioxide 24 mmol/L (22-29); Chloride 106 mmol/L (96-108); Creatinine Clr Calc Pharmacy 74.9; Estimated Glomerular Filt Rate > 60; Glucose Random 91 mg/dL (60-115); Lipase 27 U/L (8-78); Potassium 4.4 mmol/L (3.3-5.1); Sodium 139 mmol/L (135-145); Total Protein 8.1 g/dL (6.5-8.0)
[2021-11-29 11:38] LABS: Troponin-I High Sensitivity < 3.5 ng/L (<3.5-17.0)
--- NOTE | 2021-11-29 14:49 | ED.ARRPALP ---
HPI - Arrhythmia/Palpitations General Chief Complaint: Arrhythmia/Palpitations Stated Complaint: heart palpitations Time Seen by Provider: 11/29/21 14:21 Source: patient Mode of arrival: ambulatory Limitations: no limitations History of Present Illness HPI narrative: 41-year-old female presents emergency department after having intermittent palpitations this past several weeks denies any falls or injury states she is not taking medications she denies fever chills cough or shortness of breath. Patient states she has not seen anyone for these. MD complaint: heart racing and palpitations Related Data Home Medications Medication Instructions Recorded Confirmed calcium 600 mg capsule 600 mg PO DAILY 06/01/20 06/10/21 fluticasone propionate 50 1 spray intranasal BID 06/01/20 06/10/21 mcg/actuation nasal spray,suspension folic acid 5 mg capsule 5 mg PO QWEEK 06/01/20 06/10/21 hydroxyurea (sickle cell) 400 mg 400 mg PO DAILY 06/01/20 06/10/21 capsule loratadine 10 mg tablet 10 mg PO DAILY 06/01/20 06/10/21 morphine 15 mg immediate release 15 mg PO Q4H PRN Pain 06/01/20 06/10/21 tablet oxycodone 10 mg tablet 10 mg PO BID PRN Pain 06/01/20 06/10/21 epinephrine 0.3 mg/0.3 mL 0.3 mg IM Q4H PRN Allergic Reaction 06/10/21 06/10/21 injection, auto-injector (EpiPen) Previous Rx's Medication Instructions Recorded nirmatrelvir 300 mg (150 mg See Rx Instructions PO .COMPLEX 11/17/21 x2)-ritonavir 100 mg tablet,dose #30 ea pack(EUA) (Paxlovid) Allergies Allergy/AdvReac Type Severity Reaction Status Date / Time ibuprofen [IBUPROFEN] Allergy Intermediate HIVES, Unverified 06/10/21 11:49 FACIAL SWELLING ketorolac [From TORADOL] Allergy Intermediate SWELLING Unverified 06/10/21 11:49 Review of Systems Review of Systems: Review of systems: General: Patient denies any fever chills recent illness or falls Musculoskeletal: Denies back pain or body aches or other injuries HEENT: denies headache, runny nose, ear pain Respiratory: denies shortness of breath, cough Cardiovascular: Palpitations no chest pain : denies dysuria, frequency Abdomen: no nausea vomiting denies abdominal pain Extremities: no swelling, no pain Skin: no diaphoresis Yes all other systems are reviewed and are negative PMFSH Past Medical History Medical History Hx of osteomyelitis Surgical History H/O adenoidectomy History of surgery on left wrist Family History Family History Mother Hx of breast cancer Social History Social History Household Members: None Housing: House Are you a primary animal care provider to a significant other at home: No 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) Alcohol intake: never Patient Tobacco Use Status: Never used Tobacco Use of substances other than those prescribed or required for medical reasons: No Advance Directives: No Advance Directives Information Provided: Yes Patient : No service: No Current occupational status: unemployed Physical Exam Vital Signs: Vital Signs: Last Vital Signs Temp 98.3 F 11/29/21 15:33 Pulse 78 11/29/21 15:33 Resp 13 11/29/21 15:33 BP 104/69 11/29/21 15:33 Pulse Ox 100 11/29/21 15:33 O2 Del Method 11/29/21 15:33 BMI result Body Mass Index 18.6 General: Well-appearing well-nourished in no signs of distress HEENT: Normocephalic atraumatic Neck: No signs of JVD, no masses no tenderness or lymphadenopathy Cardiovascular: Regular rate and rhythm Respiratory: Clear to auscultation bilaterally Abdomen: Soft nontender no masses Extremities: Normal pedal pulses no signs of edema Skin: Dry warm no rashes Back: No tenderness full ROM MDM - Arrhythmia/Palpitations MDM Narrative Medical decision making narrative: Patient has normal labs and workup she has no chest pain she looks otherwise well sent off a TSH to labs are drawn patients waiting in the waiting room no other concerns on this patient I think they are likely healthy enough to go home. She is still covid positive which is likely the same as her previous diagnosis and has no symptoms related to COVID at this time. 1600 TSH is normal on the monitor nothing dangerous seen I feel comfortable sending home with PCP follow up. Lab Data Result diagrams: 11/29/21 11:09 11/29/21 11:09 Labs: Lab Results 11/29/21 11/29/21 11/29/21 Range/Units 11:09 11:09 11:09 WBC 6.3 (4.8-10.8) X10*3/uL RBC 2.95 L (4.20-5.50) X10*6/uL Hgb 10.0 L (12.0-16.0) g/dl Hct 29.1 L (37.0-47.0) % MCV 98.6 H (80.0-98.0) fL MCH 33.9 H (27.0-33.0) pg MCHC 34.4 (31.0-35.0) g/dl RDW 15.0 (11.0-16.0) % Plt Count 312 (160-400) X10*3/uL MPV 9.9 (9.4-12.3) fL Immature Gran % (Auto) 0.3 (0.0-0.4) % Neut % (Auto) 59.0 (45-73) % Lymph % (Auto) 27.1 (20-40) % [place] % (Auto) 12.1 H (2-11) % Eos % (Auto) 1.3 (0-4) % Baso % (Auto) 0.2 (0-2) % Lymph # (Auto) 1.7 (1.2-4.9) X10*3/uL [place] # (Auto) 0.8 (0.1-1.2) X10*3/uL Eos # (Auto) 0.1 (0.0-0.4) X10*3/uL Baso # (Auto) 0.0 (0.0-0.2) X10*3/uL Abs Immat Gran (auto) 0.02 (0.00-0.03) X10*3/uL Absolute Neuts (auto) 3.7 (2.0-8.3) x10*3/uL Absolute Nucleated RBC 0.310 H (0.0-0.012) X10*3/uL Nucleated RBC % (auto) 4.9 H (0.0-0.2) /100WBC Sodium 139 (135-145) mmol/L Potassium 4.4 (3.3-5.1) mmol/L Chloride 106 (96-108) mmol/L Carbon Dioxide 24 (22-29) mmol/L Anion Gap 13 (12-20) BUN 6 L (9-16) mg/dL Creatinine 0.75 (0.5-1.4) mg/dL Estim Creat Clear Calc 74.9 Estimated GFR > 60 Random Glucose 91 (60-115) mg/dL Calcium 9.1 (8.4-10.2) mg/dL Total Bilirubin 1.1 H (0.0-1.0) mg/dL Direct Bilirubin 0.5 (0.0-0.5) mg/dL AST 29 D (5-31) U/L ALT 27 (0-31) U/L Alkaline Phosphatase 82 D (39-117) U/L Troponin I High Sens < 3.5 (<3.5-17.0) ng/L Total Protein 8.1 H (6.5-8.0) g/dL Albumin 4.3 (3.5-5.0) g/dL Lipase 27 (8-78) U/L TSH 0.71 (0.32-4.0) uIU/mL COVID-19 ([facility]) (Negative) COVID-19 Clin Com 11/29/21 Range/Units 11:09 WBC (4.8-10.8) X10*3/uL RBC (4.20-5.50) X10*6/uL Hgb (12.0-16.0) g/dl Hct (37.0-47.0) % MCV (80.0-98.0) fL MCH (27.0-33.0) pg MCHC (31.0-35.0) g/dl RDW (11.0-16.0) % Plt Count (160-400) X10*3/uL MPV (9.4-12.3) fL Immature Gran % (Auto) (0.0-0.4) % Neut % (Auto) (45-73) % Lymph % (Auto) (20-40) % [place] % (Auto) (2-11) % Eos % (Auto) (0-4) % Baso % (Auto) (0-2) % Lymph # (Auto) (1.2-4.9) X10*3/uL [place] # (Auto) (0.1-1.2) X10*3/uL Eos # (Auto) (0.0-0.4) X10*3/uL Baso # (Auto) (0.0-0.2) X10*3/uL Abs Immat Gran (auto) (0.00-0.03) X10*3/uL Absolute Neuts (auto) (2.0-8.3) x10*3/uL Absolute Nucleated RBC (0.0-0.012) X10*3/uL Nucleated RBC % (auto) (0.0-0.2) /100WBC Sodium (135-145) mmol/L Potassium (3.3-5.1) mmol/L Chloride (96-108) mmol/L Carbon Dioxide (22-29) mmol/L Anion Gap (12-20) BUN (9-16) mg/dL Creatinine (0.5-1.4) mg/dL Estim Creat Clear Calc Estimated GFR Random Glucose (60-115) mg/dL Calcium (8.4-10.2) mg/dL Total Bilirubin (0.0-1.0) mg/dL Direct Bilirubin (0.0-0.5) mg/dL AST (5-31) U/L ALT (0-31) U/L Alkaline Phosphatase (39-117) U/L Troponin I High Sens (<3.5-17.0) ng/L Total Protein (6.5-8.0) g/dL Albumin (3.5-5.0) g/dL Lipase (8-78) U/L TSH (0.32-4.0) uIU/mL COVID-19 ([facility]) Positive A (Negative) COVID-19 Clin Com See Note Discharge Plan Discharge Clinical Impression: Palpitations Patient Disposition: Home, Self-Care Instructions: Heart Palpitations (ED) Additional Instructions: Please call to follow up with your doctor. If you have any other concerns please return to the ED. Prescriptions: No Action calcium 600 mg Capsule 600 mg PO DAILY folic acid 5 mg Capsule 5 mg PO QWEEK morphine 15 mg Tablet 15 mg PO Q4H PRN (Reason: Pain) fluticasone propionate 50 mcg/actuation [place],Suspension 1 spray INTRANASAL BID hydroxyurea (sickle cell) 400 mg Capsule 400 mg PO DAILY loratadine 10 mg Tablet 10 mg PO DAILY oxycodone 10 mg Tablet 10 mg PO BID PRN (Reason: Pain) epinephrine [EpiPen] 0.3 mg/0.3 mL Auto-Injector 0.3 mg IM Q4H PRN (Reason: Allergic Reaction) Paxlovid (EUA) 300 mg (150 mg x 2)-100 mg tablets,dose pack See Rx Instructions .ROUTE .COMPLEX Qty: 30 0RF Rx Instructions: take TWO 150 mg tablets of nirmatrelvir with ONE 100 mg tablet of ritonavir twice daily for 5 days
[2021-11-29 14:57] VITALS: BP 101/67; PULSE 85; RESP 12; TEMP 36.9; O2SAT 100
[2021-11-29 15:11] LABS: Thyroid Stimulating Hormone 0.71 uIU/mL (0.32-4.0)
[2021-11-29 15:33] VITALS: BP 104/69; PULSE 78; RESP 13; TEMP 36.8; O2SAT 100
[2021-11-29 16:00] VITALS: BP 94/66; PULSE 71; RESP 18; TEMP 36.9; O2SAT 98
--- NOTE | 2021-11-29 18:06 | ECG_ITS ---
Test Reason : Arrhythmia Blood Pressure : / mmHG Vent. Rate : 073 BPM Atrial Rate : 073 BPM P-R Int : 154 ms QRS Dur : 070 ms QT Int : 396 ms P-R-T Axes : 025 022 035 degrees QTc Int : 436 ms Normal sinus rhythm Normal ECG When compared with ECG of 29-NOV-2021 11:04, No significant change was found Referred By: Sancho Love Electronically Signed By:ALDAIR RODRIGUEZ
== END 2021-11-29 16:26 | disposition home or self-care (01) ==
PROVIDERS: Emergency Provider Student in an Organized Health Care Education/Training Program; PCP Family Medicine
DX: R00.2 Palpitations (principal); U07.1 COVID-19
CPT/HCPCS: 36415; 80053; 82248; 83690; 84443; 84484; 85025; 87635; 93005; 99283; 99285

== ENCOUNTER 2022-01-31 12:40 | Outpatient (REF) | payer MEDICAID, SELFPAY ==
--- NOTE | ~2022-01-31 | MM_ITS ---
EXAMINATION: MM SCREENING DIGITAL BREAST TOMOSYNTHESIS, BILATERAL CLINICAL INFORMATION: Screening. Asymptomatic. Age 41. No prior breast imaging. Family history premenopausal breast cancer, mother. The lifetime risk of breast cancer based on the Tyrer-Cuzick Model is 23%. COMPARISON: None (current study represents initial baseline exam). TECHNIQUE: Digital breast tomosynthesis is performed in both the craniocaudal and mediolateral oblique views along with computer-aided detection (CAD). Synthesized 2D images are generated from the tomosynthesis. FINDINGS: The breasts are heterogeneously dense, which may obscure small masses (ACR BI-RADS breast composition Category c). Right breast has a smooth benign-appearing macrolobulated nodule mid 9:00 position approximately 0.6 cm. As this represents baseline mammogram, patient will be recalled for targeted right breast ultrasound to further characterize baseline status. The remainder of the breasts show no significant mass or architectural abnormality or abnormal calcifications. The axilla and skin contours are unremarkable. MM/MM tomosynthesis screening BI IMPRESSION: Right: -Benign-appearing 0.6 cm circumscribed nodule mid 9:00. Left: -No mammographic evidence of malignancy. ASSESSMENT: BI-RADS 0: Incomplete - Need Additional Imaging Evaluation RECOMMENDATION: 1. Targeted ultrasound right breast. 2. Radiology department staff will contact the patient for additional imaging. This patient's information was entered into a reminder system with a target due date for their next mammogram.
== END 2022-01-31 12:41 | disposition home or self-care (01) ==
LOC: HO.MAMMO 12:40
PROVIDERS: PCP Family Medicine; Visit Provider Family Medicine
DX: Z12.31 Encounter for screening mammogram for malignant neoplasm of breast (principal)
CPT/HCPCS: 77063; 77067

== ENCOUNTER 2022-02-07 13:14 | Outpatient (REF) | payer MEDICAID, SELFPAY ==
--- NOTE | ~2022-02-07 | US_ITS ---
EXAMINATION: US DIAGNOSTIC ULTRASOUND BREAST, RIGHT CLINICAL INFORMATION: Right breast nodule lateral right breast. COMPARISON: 01/31/2022. TECHNIQUE: Ultrasound of the breast is performed with real-time collazo scale imaging and color Doppler. FINDINGS: At the 8 o'clock position of the right breast approximately 5 cm from the nipple there is a cyst measuring approximately 4 x 4 x 2 mm in size with a small adjacent 1.5 mm cyst. This corresponds in size and location to the mammographic finding. Scanning at approximately the 10 o'clock position 7 cm from the nipple demonstrates an isoechoic circumscribed lesion which is wider than it is tall without internal vascularity and with some increased through sound transmission which may represent a complex cyst or solid lesion. Ultrasound-guided aspiration of the 10 o'clock lesion is recommended. If the lesion does not aspirate, then biopsy could be performed at that time. Results are discussed with the patient at time of visit. Breast center insurance law specialist called above recommendation to Yamini at referring physician's office. US/US breast RT limited IMPRESSION: The mammographic finding corresponds to a simple-appearing cyst. A second isoechoic lesion which may represent complex cyst or solid lesion at the 10 o'clock position 7 cm from the nipple for which ultrasound-guided aspiration is recommended. ASSESSMENT: BI-RADS 4: Suspicious (subcategory 4A: Low suspicion for malignancy). RECOMMENDATION: Ultrasound-guided aspiration. If lesion does not aspirate, then core biopsy would be performed at the same time. This patient's information was entered into a reminder system with a target due date for their next mammogram.
== END 2022-02-07 13:15 | disposition home or self-care (01) ==
LOC: HO.MAMMO 13:14
PROVIDERS: PCP Family Medicine; Visit Provider Family Medicine
DX: N60.01 Solitary cyst of right breast (principal)
CPT/HCPCS: 76642

== ENCOUNTER 2022-02-11 08:56 | Outpatient (REF) | payer MEDICAID, SELFPAY ==
--- NOTE | ~2022-02-11 | MM_ITS ---
EXAMINATION: MM DIAGNOSTIC DIGITAL BREAST TOMOSYNTHESIS, RIGHT CLINICAL INFORMATION: Status post ultrasound-guided core biopsy upper outer right breast. COMPARISON: Mammography: 01/31/2022, ultrasound right breast 02/07/2022, ultrasound-guided core biopsy 02/11/2022. TECHNIQUE: Digital breast tomosynthesis is performed in both the craniocaudal and mediolateral views. Synthesized 2D images are generated from the tomosynthesis. FINDINGS: The breasts are heterogeneously dense, which may obscure small masses (ACR BI-RADS breast composition Category c). There is a HydroMark butterfly shaped clip marker mid upper outer right breast corresponding to today's biopsy, described in separate report. There is no gross hematoma. The parenchymal pattern is similar to recent imaging. Results are discussed with the patient at time of visit. MM/MM tomosynthesis diagnostic RT IMPRESSION: Biopsy clip marker in position. No gross hematoma. ASSESSMENT: BI-RADS 2: Benign RECOMMENDATION: See ultrasound-guided core biopsy for final pathology outcome and follow-up recommendations.
--- NOTE | ~2022-02-11 | US_ITS ---
EXAMINATION: ULTRASOUND GUIDED CORE BIOPSY BREAST, RIGHT CLINICAL INFORMATION: 41-year-old with mildly hypoechoic nodule upper outer right breast mid depth with increased through-transmission and no associated color flow. Family history breast cancer, mother. TC score 23%. COMPARISON: Mammography 01/31/2022, right breast ultrasound 02/07/2022. FINDINGS: Proper informed consent is obtained from the patient after discussion of the procedure, potential risks and complications, and alternatives. Patient was given an opportunity for questions. The patient appeared to understand. The patient consented to the procedure and signed the consent form. Hospital provided superintendent job assisted for the consent and throughout the procedure. GUIDANCE: Ultrasound-guided; aseptic technique. LESION: Oval mildly hypoechoic circumscribed nodule with increased through-transmission of sound and no color flow. Primary differential considerations include apocrine metaplasia/foam cyst, PASH, other. APPROACH: Lateral medial. ANESTHESIA: 10 mL carbonated 1% lidocaine. DERMATOTOMY: Single skin prosper dermatotomy performed. NEEDLE: Attempt at aspiration with 21-gauge straight needle was unsuccessful. The nodule is soft and easily performed with needle. Subsequently, core sampling is performed using 14-gauge Achieve core biopsy device with 13.5-gauge co-axial guide needle. CORES: 4. CLIP: HydroMARK; shape: butterfly. POST PROCEDURE UNILATERAL DIGITAL MAMMOGRAM: Postprocedure mammography to be described in a separate report. Images unavailable on PACS at time of imaging and dictation. Low resolution images on mammography unit show clip deployment and no gross hematoma. The patient tolerated the procedure well. No immediate complications. Home instructions reviewed with the patient. Final pathology results are pending. US/US breast ndl core biopsy RT IMPRESSION: 1. Status post ultrasound-guided core biopsy right breast. 2. Clip placed: HydroMARK; shape: Butterfly. 3. Pathology pending. An addendum report will be issued.
[2022-02-11] MEDS: Lidocaine HCl 1 % 20 ML VIAL 9 ML SUBCUT (11:03)
[2022-02-11] MEDS: Sodium Bicarbonate 8.4% 50 MEQ/50 ML VIAL SUBCUT (11:04)
== END 2022-02-11 08:57 | disposition home or self-care (01) ==
LOC: HO.MAMMO 08:56
PROVIDERS: PCP Family Medicine; Visit Provider Surgery
DX: R92.8 Other abnormal and inconclusive findings on diagnostic imaging of breast (principal)
CPT/HCPCS: 19083; 77061; 77065; 88305; 99202

== ENCOUNTER → 2022-02-18 09:07 | Outpatient (BNVA) | payer MEDICAID, SELFPAY | PROVIDERS: PCP Family Medicine; Visit Provider Surgery | DX: R92.8 Other abnormal and inconclusive findings on diagnostic imaging of breast (principal); Z80.3 Family history of malignant neoplasm of breast | CPT/HCPCS: 99212 ==

== ENCOUNTER → 2022-03-31 15:24 | Outpatient (BNVA) | payer MEDICAID, SELFPAY | PROVIDERS: PCP Family Medicine; Visit Provider Surgery | DX: Z13.89 Encounter for screening for other disorder (principal) ==

== ENCOUNTER → 2022-07-22 13:14 | Outpatient (BNVA) | payer MEDICAID, SELFPAY | PROVIDERS: PCP Family Medicine; Visit Provider Surgery | DX: Z13.79 Encounter for other screening for genetic and chromosomal anomalies (principal) | CPT/HCPCS: 99211 ==

== ENCOUNTER 2022-08-19 14:41 | Outpatient (REF) | payer MEDICAID, SELFPAY ==
--- NOTE | ~2022-08-19 | MM_ITS ---
EXAMINATION: MM DIAGNOSTIC DIGITAL BREAST TOMOSYNTHESIS, RIGHT CLINICAL INFORMATION: Short interval follow-up new baseline following benign ultrasound-guided biopsy right breast upper outer quadrant (benign breast tissue with dense stromal fibrosis; no atypia or malignancy). Family history premenopausal breast cancer, mother. The lifetime risk of breast cancer based on the Tyrer-Cuzick Model is 24%. COMPARISON: Mammography: 02/11/2022, 01/31/2022 (baseline, BI-RADS 0), targeted ultrasound right breast 02/07/2022, ultrasound-guided biopsy right breast 02/11/2022. TECHNIQUE: Digital breast tomosynthesis is performed in both the craniocaudal and mediolateral oblique views along with computer-aided detection (CAD). Synthesized 2D images are generated from the tomosynthesis. FINDINGS: The breasts are heterogeneously dense, which may obscure small masses (ACR BI-RADS breast composition Category c). There is a biopsy clip marker posterior upper outer right breast. Parenchymal pattern is similar to prior studies. No developing density or architectural abnormality. There is a smooth circumscribed nodule mid 9:00 position previously noted to represent cyst on targeted ultrasound. No abnormal calcifications. The axilla and skin contours are unremarkable. Results are provided to the patient at time of visit by the technologist. MM/MM tomosynthesis diagnostic RT IMPRESSION: No mammographic evidence of malignancy. ASSESSMENT: BI-RADS 2: Benign RECOMMENDATION: 1. Routine annual mammography screening. 2. The lifetime risk of breast cancer based on the Tyrer-Cuzick Model is 24%. Additional annual adjunct screening with breast MRI may be of benefit in women with a risk score of 20% or greater and dense breast tissue composition on mammography. This patient's information was entered into a reminder system with a target due date for their next mammogram.
== END 2022-08-19 14:42 | disposition home or self-care (01) ==
LOC: HO.MAMMO 14:41
PROVIDERS: PCP Family Medicine; Visit Provider Surgery
DX: R92.8 Other abnormal and inconclusive findings on diagnostic imaging of breast (principal)
CPT/HCPCS: 77061; 77065

== ENCOUNTER 2022-10-14 09:24 | Outpatient (AMB) | payer MEDICAID, SELFPAY ==
--- NOTE | 2022-10-14 09:26 | A.OFFVIS_ITS ---
Intake Vital Signs 10/14/22 09:28 Height 5 ft 3 in Weight 114 lb BMI 20.2 BP 110/56 L Blood Pressure Location Lt brachial Position Sitting Pulse 80 Intake Visit Reasons: genetic test results *HERE* Intake Note: Patient is seen in office for genetic testing results. 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 Accompanied by: Self / Same As Patient Allergies ibuprofen [IBUPROFEN] Allergy (Intermediate, Unverified 10/14/22 09:27) HIVES, FACIAL SWELLING ketorolac [From TORADOL] Allergy (Intermediate, Unverified 10/14/22 09:27) SWELLING Medication List - Last Reconciled 10/14/22 by Srinivas Bustos MD calcium 600 mg PO DAILY epinephrine (EpiPen) 0.3 mg IM Q4H PRN fluticasone propionate 50 mcg/actuation 1 spray intranasal BID folic acid 5 mg PO QWEEK hydroxyurea (sickle cell) 400 mg PO DAILY loratadine 10 mg PO DAILY morphine 15 mg PO Q4H PRN nirmatrelvir-ritonavir 300 mg (150 mg x 2)-100 mg (Paxlovid) take TWO 150 mg tablets of nirmatrelvir with ONE 100 mg tablet of ritonavir twice daily for 5 days oxycodone 10 mg PO BID PRN HPI HPI Comments History of Present Illness Details 41-year-old female patient presenting with a previous history of sickle cell and a recent mammogram which revealed a new density in the right breast at the 10 o'clock position. Subsequent ultrasound performed on 02/07/2022 confirmed a 7 x 4 mm density in the 10 o'clock position approximately 7 cm from the nipple. This was felt to be suspicious for malignancy and aspiration or biopsy recommended. She denies a previous history of breast problems or breast surgery. She denies any current breast symptoms of pain, redness, discharge, no mass, or enlarged lymph nodes. Her family history is significant for her mother developing breast cancer at the age of 41. She did undergo genetic testing patient does not know the results. This was done 2 years ago. She is . Patient underwent an ultrasound-guided core biopsy of the right breast at the [facility] on 02/11/2022. Pathology revealed benign breast tissue no evidence of atypia or malignancy. She tolerated the procedure well and denies any ongoing breast symptoms. A copy of the report was provided to the patient. Patient underwent genetic testing given her strong family history of breast cancer. Testing was performed on 07/22/2022. Results revealed no clinically significant mutations and no mutations of uncertain significance. A copy of the report was provided to the patient. 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) Alcohol intake: never Patient Tobacco Use Status: Never used Tobacco service: No Current occupational status: unemployed Female Reproductive History Menstrual Age of Menarche: 14 Review of Systems Const All systems reviewed & are unremarkable except as noted in HPI and below Physical Exam Vital Signs: Last Vital Signs Pulse 80 10/14/22 09:28 BP 110/56 L 10/14/22 09:28 BMI result Body Mass Index 20.2 Const General: cooperative and no acute distress Nutritional Appearance: well nourished Orientation/consciousness: patient oriented x3 Limitations: no limitations HEENT Head: Yes normocephalic and Yes atraumatic Ears: hearing grossly normal bilaterally Chest Other: Exam deferred GI Inspection: Yes normal to inspection Skin Other: Warm, dry, no rash Neuro General: patient oriented x3 Extrem Other: Patient recently underwent right shoulder surgery and currently has a large apparatus on the right shoulder and right arm. General: Yes no clubbing, cyanosis or edema Assessment & Plan Assessment & Plan (1) At high risk for breast cancer: Code(s): Z91.89 - Other specified personal risk factors, not elsewhere classified (2) Family history of breast cancer: Code(s): Z80.3 - Family history of malignant neoplasm of breast Plan 42-year-old female patient with strong family history of breast cancer including her mother returning to review the results of her recent genetic testing. No clinically significant mutations were identified and no variance of unknown significance were identified. A copy of the report was provided to the patient. She should continue routine screening including monthly self examination, yearly mammograms and clinical examination. She should follow up as needed. Coding Level of Care Code Est Pt Level 3 (36583) Diagnoses At high risk for breast cancer Z91.89 Family history of breast cancer Z80.3
[2022-10-14 09:28] VITALS: BP 110/56; PULSE 80; BMI 20.2
== END 2022-10-14 10:19 | disposition home or self-care (01) ==
LOC: HO.HGS 09:24
PROVIDERS: PCP Family Medicine; Visit Provider Surgery
DX: Z91.89 Other specified personal risk factors, not elsewhere classified (principal); Z80.3 Family history of malignant neoplasm of breast
CPT/HCPCS: 99213

== ENCOUNTER → 2022-10-14 09:24 | Outpatient (BNVA) | payer MEDICAID, SELFPAY | PROVIDERS: PCP Family Medicine; Visit Provider Surgery | DX: Z91.89 Other specified personal risk factors, not elsewhere classified (principal); Z80.3 Family history of malignant neoplasm of breast | CPT/HCPCS: 99212 ==

== ENCOUNTER 2023-01-22 13:00 | Outpatient (RCR) | payer MEDICAID, SELFPAY | END 2023-01-27 13:59 | disposition home or self-care (01) | LOC: HO.PT 13:00 | PROVIDERS: PCP Family Medicine; Visit Provider Physician Assistant | DX: Z98.890 Other specified postprocedural states (principal) | CPT/HCPCS: 97110; 97112; 97140; 97161; 97530 ==

== ENCOUNTER 2023-02-19 15:34 | Outpatient (REF) | payer MEDICAID, SELFPAY ==
--- NOTE | ~2023-02-19 | MM_ITS ---
EXAMINATION: MM SCREENING DIGITAL BREAST TOMOSYNTHESIS, BILATERAL CLINICAL INFORMATION: Screening. Asymptomatic. COMPARISON: Mammography: This study is compared with prior exams dating back to 2021. TECHNIQUE: Digital breast tomosynthesis is performed in both the craniocaudal and mediolateral oblique views along with computer-aided detection (CAD). Synthesized 2D images are generated from the tomosynthesis. FINDINGS: The breasts are heterogeneously dense, which may obscure small masses (ACR BI-RADS breast composition Category c). There are no significant masses, abnormal calcifications, or other abnormalities. MM/MM tomosynthesis screening BI IMPRESSION: No mammographic evidence of malignancy. ASSESSMENT: BI-RADS BI-RADS 1 - Negative RECOMMENDATION: Routine annual mammography screening. 1 year F/U This examination should not preclude the clinical evaluation of a suspicious palpable abnormality. This patient's information was entered into a reminder system with a target due date for their next mammogram.
== END 2023-02-19 15:35 | disposition home or self-care (01) ==
LOC: HO.MAMMO 15:34
PROVIDERS: PCP Family Medicine; Visit Provider Family Medicine
DX: Z12.31 Encounter for screening mammogram for malignant neoplasm of breast (principal)
CPT/HCPCS: 77063; 77067

== ENCOUNTER → 2023-02-19 15:45 | Outpatient (BNV) | payer MEDICAID, SELFPAY | PROVIDERS: PCP Family Medicine; Visit Provider Radiology Diagnostic Radiology | DX: Z12.31 Encounter for screening mammogram for malignant neoplasm of breast (principal) | CPT/HCPCS: 77063; 77067 ==

== ENCOUNTER 2024-02-22 14:24 | Outpatient (REF) | payer MEDICAID, SELFPAY | END 2024-02-22 14:25 | disposition home or self-care (01) | LOC: HO.MAMMO 14:24 | PROVIDERS: PCP Family Medicine; Visit Provider Family Medicine | DX: Z12.31 Encounter for screening mammogram for malignant neoplasm of breast (principal) | CPT/HCPCS: 77063; 77067 ==

== ENCOUNTER → 2024-02-22 14:30 | Outpatient (BNV) | payer MEDICAID, SELFPAY | PROVIDERS: PCP Family Medicine; Visit Provider Internal Medicine | DX: Z12.31 Encounter for screening mammogram for malignant neoplasm of breast (principal) | CPT/HCPCS: 77063; 77067 ==

== ENCOUNTER 2024-11-03 11:57 | Outpatient (REF) | payer MEDICAID, SELFPAY ==
--- OUTSIDE RECORDS SUMMARY | 2024-10-31 19:00 | XMS_ITS | Encounter Summary ---
Author Organization [employer] Address [address] [place] [address] 7t [place] [address] Care Team Providers Care Range Scientist Name Role Phone Sanjuana Anderson MD Primary Care Provider +1- [phone] Reason for Referral * Consultation (Routine) - Closed Specialty Diagnoses / Procedures Referred By Miguelangel moya Referred To Contact Diagnoses Popliteal pain July Pruitt NP [address] [place] [address] Phone: tel: fax: Roddy Irvin [address] [place] [address] Phone: tel: fax: Referral ID Status Reason Start Date Expiration Date V isits Requested Visits Authorized [id number] Closed Specialty Services Required 11/01/2024 11/01/2025 1 1 Reason for Visit * Reason Comments Leg Pain Encounter Details Date Type Department Care Team (Late st Contact Info) Description 10/31/2024 7:00 PM EDT Office Visit [facility] [address] [place] [address] July Pruitt NP [address] [place] [address] Popliteal pain (Primary Dx) Social History Tobacco Use Types Packs/Day Years Used Date Smoking Tobacco: Never Passive Smoke Exposure: Never Smokeless Tobacco: Never Tobacco Cessation:Counseling Given: Not Answered Alcohol Use Standard Drinks/Week Comments Not Currently 0 (1 standard drink = 0.6 oz pur e alcohol) Depression Answer Date Recorded Patient Health Questionnaire-9 Score 11 01/27/2024 Patient Health Questionnaire-9 Score 11 01/27/2024 Last PHQ-9: Questionnaire Data Not on file 1 03/28/2023 Housing Stability Answer Date Recorded What is your housing situation today? I have ami cano 04/28/[address] you li ve. Do you have problems with any of the following? None of the above 04/28/2023 Food Insecurity Answer Date Recorded Within the past 12 months, y ou worried that your food would run out before you got money to buy more: Sometimes True 2023 Within the past 12 months,th e food you bought just didn't last and you didn't have enough money to get more: Sometimes True 04/28/2023 Transportation Answer Date Recorded In the past 12 months, has l ack of transportation kept you from medical appts, meetings, work or from getting things needed for daily living? No 04/28/2023 Utilities Answer Date Recorded In the past 12 months, has t he electric, gas, oil or water company threatened to shut off services in your home? No 04/28/2023 Depression Answer Date Recorded Patient Health Questionnaire-2 Score 6 01/27/2024 Internet Access Answer Date Recorded Internet Access Q1 Yes 01/20/2024 Internet Access Q2 Not on file 01/20/2024 Comments No Sex and Gender Information Value Date Recorded Sex Assigned at Female 01/06/2022 10:18 AM EDT Legal Sex Female 10:18 AM EDT Gender Identity Female 01/06/2022 10:18 AM EDT Sexual Orientation Straight 01/06/2022 10 :18 AM EDT documented as of this encounter Last Filed Vital Signs Vital Sign Reading Time Taken Comments Blood Pressure 108/70 10/31/2024 6:51 PM EDT Pulse 66 10/31/2024 6:51 PM EDT Temperature 36.7 C (98.1 F) 10/31/2024 6:51 PM EDT Respiratory Rate 16 10/31/2024 6:51 PM EDT Oxygen Saturation 98% 10/31/2024 6:51 PM EDT Inhaled Oxygen Concentration - - Weight 51.7 kg (114 lb) 10/31/2024 6:51 PM EDT Height - - Body Mass Index 20.19 01/27/2024 3:03 PM EST documented in this encounter Progress Notes * Zhou Lockett MA - 10/31/2024 7:00 PM EDT u * July Pruitt NP - 10/31/2024 7:00 PM EDT Images from the original note were not included. SUBJECTIVE: Pina Sullivan is a 44 y.o. female who presents to the [facility] [place] for a sick visit. Denies recent illness, injury, or hospitalization. HPI Pina states she called to make an apt with her established Orthopedic provider Dr. Irvin to discuss chronic pain in her left lower leg. States she as was told to obtain a new referral from PCP as it was a new problem. Reports pain in posterior aspect of left knee that's been occurring intermittently for about 7-8 months now. Informs pain started after she hit the back of her knee on the wooden frame of her bed. States in the last few days the pain has been radiating down to her ankle. Review of Systems Constitutional: Negative. Negative for chills and fever. Respiratory: Negative for chest tightness and shortness of breath. Cardiovascular: Negative for chest pain. Gastrointestinal: Negative for abdominal pain, constipation, diarrhea and nausea. Genitourinary: Negative for dysuria. Musculoskeletal: Positive for myalgias. Negative for arthralgias, back pain and neck pain. Skin: Negative. Negative for rash and wound. Neurological: Negative for weakness, light-headedness and headaches. Psychiatric/Behavioral: Negative for behavioral problems, confusion, decreased concentration and suicidal ideas. OBJECTIVE: Visit Vitals BP 108/70 (BP Location: Right arm, Patient Position: Sitting, BP Cuff Size: Adult) Pulse 66 Temp 98.1 ??F (36.7 ??C) (Temporal) Resp 16 Wt 114 lb (51.7 kg) SpO2 98% BMI 20.19 kg/m?? OB Status Premenopausal Smoking Status Never BSA 1.52 m?? Problem List[1] Physical Exam Vitals reviewed. Constitutional: General: She is not in acute distress. Appearance: Normal appearance. She is not ill-appearing. HENT: Head: Normocephalic and atraumatic. Right Ear: External ear normal. Left Ear: External ear normal. Nose: Nose normal. Eyes: General: No scleral icterus. Extraocular Movements: Extraocular movements intact. Cardiovascular: Rate and Rhythm: Normal rate and regular rhythm. Pulses: Normal pulses. Heart sounds: Normal heart sounds. Pulmonary: Effort: Pulmonary effort is normal. No respiratory distress. Breath sounds: Normal breath sounds. Musculoskeletal: General: Normal range of motion. Cervical back: Normal range of motion. Legs: Neurological: General: No focal deficit present. Mental Status: She is alert and oriented to person, place, and time. Gait: Gait normal. Psychiatric: Mood and Affect: Mood normal. Behavior: Behavior normal. Assessment/Plan Diagnoses and all orders for this visit: Popliteal pain Comments: -c/o intermittent pain in popliteal region of left leg not present at time of exam -PE is unremarkable -recommend warm compress and pain management with tylenol and topical dicclofenac gel -referral placed per patient request -ED precautions reviewed Orders: - Referral to Orthopaedic Surgery; Future Follow-up with PCP as scheduled for routine health or sooner as needed Greenlandic Translation: Provided by [employer] Condition[employer] Machine Operator Phone Service Fifi ID # [id number] [1] Patient Active Problem List Diagnosis Adult failure to thrive syndrome Anemia 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) Depressive disorder Ganglion cyst Idiopathic aseptic necrosis of bone (CMS/HCC) Primary insomnia Shoulder pain Sickle cell anemia with crisis (CMS/HCC) Allergies Other specified health status Abnormal mammogram Family planning Tinea pedis of right foot documented in this encounter Plan of Treatment Scheduled Referrals Name Type Priority Associated Diagnoses Order Schedule Referral to Orthopaedic Surgery Outpatient Referral Routine Popliteal pain Expected: 11/01/2024 (Approximate), Expires: 10/31/2025 documented as of this encounter Visit Diagnoses Diagnosis Popliteal pain- Primary documented in this encounter Additional Health Concerns Assessment Noted Time PHQ-9 Depression Total Score: 11 01/26/2 024 3:25 PM EST documented as of this encounter Care Teams Range Scientist Relationship Specialty Start Date End Date Sanjuana Anderson MD [address] [place] [address] PCP - General Family Medicine 03/09/18 Wen Gan MD [facility] [address] [place] [address] Hematology and Oncology 01/27/24 Ebony Lal PsyD [facility] [address] [place] [address] Psychiatry 01/27/24 Shania Xiao MD [address] [place] [address], [place] [address] Orthopaedic Surgery 01/27/24 documented as of this encounter
[2024-11-03 12:57] LABS: Hematocrit 24.7 % (37.0-47.0); Hemoglobin 8.6 g/dl (12.0-16.0); Imm Gran Abs Auto 0.02 X10*3/uL (0.00-0.03); Imm Gran Pct Auto 0.5 % (0.0-0.4); Lymphocytes Absolute Auto 2.0 X10*3/uL (1.2-4.9); Mean Corpuscular HGB Conc 34.8 g/dl (31.0-35.0); Mean Corpuscular Hemoglobin 35.5 pg (27.0-33.0); Mean Corpuscular Volume 102.1 fL (80.0-98.0); NRBC Abs Auto 1.210 X10*3/uL (0.0-0.012); Platelet Count 202 X10*3/uL (160-400); Red Blood Count 2.42 X10*6/uL (4.20-5.50); White Blood Count 3.8 X10*3/uL (4.8-10.8)
--- OUTSIDE RECORDS SUMMARY | 2024-11-03 13:04 | XMS_ITS | Encounter Summary ---
Author Organization [facility] Address [address] [place] [address] 7t [place] [address] Care Team Providers Care Certified Rehabilitation Counselor Name Role Phone Sanjuana Anderson MD Primary Care Provider +1- [phone] Reason for Visit * Reason Onset Date Comments triage 07/09/2022 Encounter Details Date Type Department Care Team ([facility] st Contact Info) Description 07/09/2022 Telephone [facility] [address] [place], [place] [phone] Sanjuana Anderson MD [address] [place], [place] [phone] triage Social History Tobacco Use Types Packs/Day Years Used Date Smoking Tobacco: Never Passive Smoke Exposure: Never Smokeless Tobacco: Never Alcohol Use Standard Drinks/Week Comments Not Asked 0 (1 standard drink = 0.6 oz pur e alcohol) Depression Answer Date Recorded Patient Health Questionnaire-9 Score 5 04/11/2022 Depression Answer Date Recorded Patient Health Questionnaire-2 Score 2 04/11/2022 Comments Unknown Sex and Gender Information Value Date Recorded Sex Assigned at Female 01/06/2022 10:18 AM EDT Legal Sex Female 10:18 AM EDT Gender Identity Female 01/06/2022 10:18 AM EDT Sexual Orientation Straight 01/06/2022 10 :18 AM EDT documented as of this encounter Miscellaneous Notes * Telephone Encounter - Eliane Benson RN - 07/09/2022 1:11 PM EDT Triage call with [employer] [place] [id number] Pt reports since yesterday started with left sided chest pain, neck pain and upper back pain. Pt reports , its like when I get pneumonia . Pt denies injury, fever. Pain is constant and is relieved with pain medication but, comes back. Pt is able to move left arm, leg well but, turning neck to lefthurts. Pt denies numbness, cough. Advised to come to [facility] today to be seen and Pt agreed with disposition. Home care reviewed. Insurance verified as active prior to booking. Multiple (2) protocols were used on this call. Disposition for Call: See in Office or Video Visit Today Protocol Used: Neck Pain or Stiffness (Adult) Protocol-Based Disposition: See in Office or Video Visit Today Video visit offer not recorded Positive Triage Question: * Patient wants to be seen * All higher-acuity triage questions were negative Care Advice Discussed: * Reassurance and Education - Neck Pain or Stiffness * Pain Medicines * Pain Medicines - Extra Notes and Warnings * Sleep * Activity * Stretching Exercises * Reasons To Call Back - Moderate pain (e.g., interferes with normal activities) lasts over 3 days - Pain lasts over 2 weeks - Pain begins to shoot into the arms - Numbness or weakness occurs in your arms or legs - You become worse Protocol Used: Chest Pain (Adult) Protocol-Based Disposition: See in Office or Video Visit Today Video visit not offered Positive Triage Questions: * All other patients with chest pain (Exception: fleeting chest pain lasting a few seconds) * Patient wants to be seen * All higher-acuity triage questions were negative Care Advice Discussed: * Reassurance and Education - Chest Pains From Coughing * Cough Medicines * Humidifier * Expected Course * Reasons To Call Back - Chest pain increases in frequency, duration or severity - Chest pain lasts over 5 minutes - Chest pains persist over 3 days - Difficulty breathing or unusual sweating occurs - Fever over 100.4 F (38.0 C) - You become worse * Telephone Encounter - Shyann Mary - 07/09/2022 11:31 AM EDT Symptom: Back Pain - Not From Injury Outcome: Schedule an appointment to be seen within 3 days Reason: Caller denied all higher acuity questions The caller accepted this outcome Emirati speaker documented in this encounter Plan of Treatment Not on file documented as of this encounter Visit Diagnoses Not on filedocumented in this encounter Additional Health Concerns Assessment Noted Time PHQ-9 Depression Total Score: 5 04/11/19 23 10:29 AM EST documented as of this encounter Care Teams Certified Rehabilitation Counselor Relationship Specialty Start Date End Date Sanjuana Anderson MD [address] [place] [address] PCP - General Family Medicine 03/09/18 Wen Gan MD [facility] [address] [place] [address] Hematology and Oncology 01/27/24 Ebony Lal PsyD [facility] [address] [place] [address] Psychiatry 01/27/24 Shania Xiao MD [address] [place] [address], [address] [place], [place] [phone] Orthopaedic Surgery 01/27/24 documented as of this encounter
--- OUTSIDE RECORDS SUMMARY | 2024-11-03 13:04 | XMS_ITS | Encounter Summary ---
Author Organization [employer] [facility] Address [address] [place] [address] 7 [place] [address] Care Team Providers Care Manufacturing Intern Name Role Phone Sanjuana Anderson MD Primary Care Provider +1- [phone] Encounter Details Date Type Department Care Team (Latest Contact Info) Description 10/13/2018 Abstract C CONVERSIONS Dental, Provider, DDS Social History Tobacco Use Types Packs/Day Years Used Date Smoking Tobacco: Never Assessed Comments Unknown Sex and Gender Information Value Date Recorded Sex Assigned at Female 01/06/2022 10:18 AM EDT Legal Sex Female 10:18 AM EDT Gender Identity Female 01/06/2022 10:18 AM EDT Sexual Orientation Straight 01/06/2022 10 :18 AM EDT documented as of this encounter Plan of Treatment Not on file documented as of this encounter Visit Diagnoses Not on filedocumented in this encounter Care Teams Manufacturing Intern Relationship Specialty Start Date End Date Sanjuana Anderson MD [address] [place] [address] PCP - General Family Medicine 03/09/18 Wen Gan MD [facility] [address] [place] [address] Hematology and Oncology 01/27/24 Ebony Lal PsyD [facility] [address] [place] [address] Psychiatry 01/27/24 Shania Xiao MD [address] [place] [address], [place] [address] Orthopaedic Surgery 01/27/24 documented as of this encounter
--- OUTSIDE RECORDS SUMMARY | 2024-11-03 13:04 | XMS_ITS | Encounter Summary ---
Author Organization [employer] Address [address] [facility] 7t [place] [address] Care Team Providers Care Traffic Checker Name Role Phone Sanjuana Anderson MD Primary Care Provider +1- [phone] Encounter Details Date Type Department Care Team (Late st Contact Info) Description 05/31/2024 Orders Only [facility] [address] [place], [place] [phone] Sanjuana Anderson MD [address] [place] [address] Sickle cell anemia with crisis (CMS/HCC) (Primary Dx) Social History Tobacco Use Types Packs/Day Years Used Date Smoking Tobacco: Never Passive Smoke Exposure: Never Smokeless Tobacco: Never Alcohol Use Standard Drinks/Week Comments Not Currently [...] as of this encounter Visit Diagnoses Diagnosis 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 documented in this encounter Additional Health Concerns Assessment Noted Time PHQ-9 Depression Total Score: 11 024 3:25 PM EST documented as of this encounter Care Teams Traffic Checker Relationship Specialty Start Date End Date Sanjuana Anderson MD [address] [place] [address] PCP - General Family Medicine 03/09/18 Wen Gan MD [facility] On[facility] [address] [place] [address] Hematology and Oncology 01/27/24 Ebony Lal PsyD [facility] Krystina [facility] [address] [place] [address] Psychiatry 01/27/24 Shania Xiao MD [address] [address], [address] [place], [place] [phone] Orthopaedic Surgery 01/27/24 documented as of this encounter
--- OUTSIDE RECORDS SUMMARY | 2024-11-03 13:04 | XMS_ITS | Encounter Summary ---
Author Organization [employer] [facility] Address [address] [place] [address] 7t [place] [address] Care Team Providers Care Grinding Machine Operator Name Role Phone Sanjuana Anderson MD Primary Care Provider +1- [phone] Encounter Details Date Type Department Care Team (Late st Contact Info) Description 04/16/2022 Abstract [facility] [address] [place] [address] Sanjuana Anderson MD [address] [place] [address] Social History Tobacco Use Types Packs/Day Years [...] Orientation Straight 01/06/2022 10 :18 AM EDT COVID-19 Exposure Response Date Recorded In the last 10 days, have yo u been in contact with someone who was confirmed or suspected to have Coronavirus/COVID-19? No / Unsure 04/11/2022 10:09 AM EST documented as of this encounter Plan of Treatment Not on file documented as of this encounter Procedures Procedure Name Priority Date/Time Associated Diagnosis Comments MAMMOGRAPHY Routine 02/07/2022 documented in this encounter Results * Mammography (02/07/2022) Mammogram pefrom Anatomical Region Laterality Modality Other us Historical Provider HEALTH MAINTENANCE Final Result documented in this encounter Visit Diagnoses Not on filedocumented in this encounter Additional Health Concerns Assessment Noted Time PHQ-9 Depression Total Score: 5 04/11/19 23 10:29 AM EST documented as of this encounter Care Teams Grinding Machine Operator Relationship Specialty Start Date End Date Sanjuana Anderosn MD [address] [place] [address] PCP - General Family Medicine 03/09/18 Wen Gan MD [facility] On[facility] [address] [place] [address] Hematology and Oncology 01/27/24 Ebony Lal PsyD [facility] [address] [place] [address] Psychiatry 01/27/24 Shania Xiao MD [address] [place] [address] [address], [address] [place], [place] [phone] Orthopaedic Surgery 01/27/24 documented as of this encounter
--- OUTSIDE RECORDS SUMMARY | 2024-11-03 13:04 | XMS_ITS | Encounter Summary ---
Author Organization [employer] [facility] Address [address] [place] [address] 7 [place] [address] Care Team Providers Care High School Chemistry Teacher Name Role Phone Sanjuana Anderson MD Primary Care Provider +1- [phone] Encounter Details Date Type Department Care Team (Latest Contact Info) Description 10/12/2020 Abstract [facility] CONVERSIONS Dental, Provider, DDS Social History Tobacco [...] on filedocumented in this encounter Care Teams High School Chemistry Teacher Relationship Specialty Start Date End Date Sanjuana Anderson MD [address] [place] [address] PCP - General Family Medicine 03/09/18 Wen Gan MD [facility] On[facility] [address] [place] [address] Hematology and Oncology 01/27/24 Ebony Lal PsyD [facility] [address] [place] [address] Psychiatry 01/27/24 Shania Xiao MD [address] [place] [address], [place] [address] Orthopaedic Surgery 01/27/24 documented as of this encounter
--- OUTSIDE RECORDS SUMMARY | 2024-11-03 13:04 | XMS_ITS | Encounter Summary ---
Author Organization [employer] Address [address] [facility] 7t [place] [address] Care Team Providers Care Mill Tender Name Role Phone Sanjuana Anderson MD Primary Care Provider +1- [phone] Encounter Details Date Type Department Care Team (Latest Contact Info) Description 10/31/2024 Travel Social History Tobacco Use Types Packs/Day Years [...] documented as of this encounter Care Teams Mill Tender Relationship Specialty Start Date End Date Sanjuana Anderson MD [address] [place] [address] PCP - General Family Medicine 03/09/18 Wen Gan MD [facility] [address] [place] [address] Hematology and Oncology 01/27/24 Ebony Lal PsyD [facility] [address] [place] [phone] Psychiatry 01/27/24 Shania Xiao MD [address] [address], [place] [address] Orthopaedic Surgery 01/27/24 documented as of this encounter
--- OUTSIDE RECORDS SUMMARY | 2024-11-03 13:04 | XMS_ITS | Encounter Summary ---
Author Organization [employer] Address [address] [facility] 7t [place] [address] Care Team Providers Care Auto Parts Clerk Name Role Phone Sanjuana Anderson MD Primary Care Provider +1- [phone] Reason for Visit * Reason Comments Med Refill Encounter Details Date Type Department Care Team ([facility] Contact Info) Description 10/29/2024 Refill [facility] [address] [place] [address] Sanjuana Anderson MD [address] [place] [address] Aseptic necrosis of head of humerus, unspecified laterality (CMS/HCC) Social History Tobacco Use Types Packs/Day Years [...] as of this encounter Visit Diagnoses Diagnosis Aseptic necrosis of head of humerus, unspecified laterality (CMS/HCC) documented in this encounter Additional Health Concerns Assessment Noted Time PHQ-9 Depression Total Score: 11 024 3:25 PM EST documented as of this encounter Care Teams Auto Parts Clerk Relationship Specialty Start Date End Date Sanjuana Anderson MD [address] [place] [address] PCP - General Family Medicine 03/09/18 Wen Gan MD [facility] for Hematology and Medical Oncology [address] [place] [phone] Hematology and Oncology 01/27/24 Ebony Lal PsyD [facility] [address] [place] [phone] Psychiatry 01/27/24 Shania Xiao MD [address] [address], [address] [place], [place] Orthopaedic Surgery 01/27/24 documented as of this encounter
--- OUTSIDE RECORDS SUMMARY | 2024-11-03 13:04 | XMS_ITS | Encounter Summary ---
Author Organization [employer] Address [address] [facility] 7t [place] [address] Care Team Providers Care Mba Intern Name Role Phone Sanjuana Anderson MD Primary Care Provider +1- [phone] Reason for Visit * Reason Onset Date Comments PT1 04/19/2024 Encounter Details Date Type Department Care Team ([facility] Contact Info) Description 04/19/2024 Telephone [facility] [address] [place] [address] Sanjuana Anderson MD [address] [place] [address] PT1 Social History Tobacco Use Types Packs/Day Years [...] encounter Miscellaneous Notes * Telephone Encounter - Cathy Vee - 04/19/2024 12:58 PM EST Patient calling requesting PT1 Home Address verified: Y/N: Yes Provider name or facility name: [facility] [address], [place] [address] Escort needed: Y/N: Yes Do you have a wheelchair: Y/N: Yes If yes- Manual or electric: Manual Visits: (2x monthly) documented in this encounter Plan of Treatment Not on file documented as of this encounter Visit Diagnoses Not on filedocumented in this encounter Additional Health Concerns Assessment Noted Time PHQ-9 Depression Total Score: 11 024 3:25 PM EST documented as of this encounter Care Teams Mba Intern Relationship Specialty Start Date End Date Sanjuana Anderson MD [address] [place] [address] PCP - General Family Medicine 03/09/18 Wen Gan MD [facility] for Hematology and Medical Oncology [address] [place] [phone] Hematology and Oncology 01/27/24 Ebony Lal PsyD [facility] [facility] [place] [address] Psychiatry 01/27/24 Shania Xiao MD [address] [place] [address], [place] [address] Orthopaedic Surgery 01/27/24 documented as of this encounter
--- OUTSIDE RECORDS SUMMARY | 2024-11-03 13:04 | XMS_ITS | Encounter Summary ---
Author Organization [employer] [facility] Address [address] [place] [address] 7t [place] [address] Care Team Providers Care Shochet Name Role Phone Sanjuana Anderson MD Primary Care Provider +1- [phone] Encounter Details Date Type Department Care Team (Late st Contact Info) Description 08/08/2022 [facility] [address] [place] [address] Sanjuana Anderson MD [address] [place] [address] Social History Tobacco Use Types Packs/Day Years [...] as of this encounter Plan of Treatment Pending Results Name Type Priority Associated Diagnoses Date /Time Mammography Imaging Routine 07/17/2022 documented as of this encounter Visit Diagnoses Not on filedocumented in this encounter Additional Health Concerns Assessment Noted Time PHQ-9 Depression Total Score: 5 04/11/19 23 10:29 AM EST documented as of this encounter Care Teams Shochet Relationship Specialty Start Date End Date Sanjuana Anderson MD [address] [place] [address] PCP - General Family Medicine 03/09/18 Wen Gan MD [facility] [address] [place] [address] Hematology and Oncology 01/27/24 Ebony Lal PsyD [facility] [address] [place] [address] Psychiatry 01/27/24 Shania Xiao MD [address] [place] [address], [address] [place], [place] [phone] Orthopaedic Surgery 01/27/24 documented as of this encounter
--- OUTSIDE RECORDS SUMMARY | 2024-11-03 13:04 | XMS_ITS | Encounter Summary ---
Author Organization [facility] Address [address] [place] [address] 7t [place] [address] Care Team Providers Care Toe Puncher Name Role Phone Sanjuana Anderson MD Primary Care Provider +1- [phone] Reason for Visit * Reason Onset Date Comments Medication Question 10/19/2024 Lab Orders 10/19/2024 Encounter Details Date Type Department Care Team ([facility] Contact Info) Description 10/19/2024 Telephone [facility] MEDICINE [address] [place] [address] Sanjuana Anderson MD [address] [place], [place] [phone] Medication Question; Lab Orders Social History Tobacco Use Types Packs/Day Years [...] encounter Miscellaneous Notes * Telephone Encounter - Barbara Garner RN - 10/20/2024 3:05 PM EDT Telephone call returned to zinc miner Dr Wen Gan at [phone]. She wanted to give Dr Anderson an update after recent 10/17/24 visit with the pt. (Note available under Encounters from 10/17/24). - increased hydroxyurea to 1500mg daily (3 tabs/day). - would like for PCP to order CMP and CBC w/ diff for pt to complete in 1 month to see how she is tolerating it. (Requesting this from PCP because pt lives in [place]). - She requests fax with lab results to be sent to [facility] in 1 month for her to review to see how pt is tolerating increased dose - she will recheck hemoglobin electrophoresis at pt's next hematology appt in 3 months Will send to PCP. Wen Gan MD [address] [place] [address] Phone: tel: fax: * Telephone Encounter - Brady Barney 10/19/2024 2:17 PM EDT Tc from Wen with [facility] requesting a call back regarding a dosage increase for hydroxyurea (Hydrea) 500 MG capsule as well as labs to confirm increase would be safe. Please contact Wen at [phone]. 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 documented in this encounter Additional Health Concerns Assessment Noted Time PHQ-9 Depression Total Score: 11 024 3:25 PM EST documented as of this encounter Care Teams Toe Puncher Relationship Specialty Start Date End Date Sanjuana Anderson MD [address] [place] [address] PCP - General Family Medicine 03/09/18 Wen Gan MD [facility] [address] [place] [phone] Hematology and Oncology 01/27/24 Ebony Lal PsyD [facility] [address] [place] [phone] Psychiatry 01/27/24 Shania Xiao MD [address] [address], [address] [place], [place] [phone] Orthopaedic Surgery 01/27/24 documented as of this encounter
--- OUTSIDE RECORDS SUMMARY | 2024-11-03 13:04 | XMS_ITS | Encounter Summary ---
Author Organization [employer] Address [address] [facility] 7t [place] [address] Care Team Providers Care Mail Handler Equipment Operator Name Role Phone Sanjuana Anderson MD Primary Care Provider +1- [phone] Reason for Visit * Reason Onset Date Comments Referral 10/25/2024 Encounter Details Date Type Department Care Team ([facility] st Contact Info) Description 10/25/2024 Telephone [facility] MEDICINE [address] [place], [place] [phone] Sanjuana Anderson MD [address] [place], [place] [phone] Referral Social History Tobacco Use Types Packs/Day Years [...] Telephone Encounter - Barbara Garner RN - 10/25/2024 11:54 AM EDT Telephone call to pt via [employer] [facility] #[id number]. Pt reports hitting her leg several months ago and for the last few days has had pain on/off behind her knee near where her calf starts. Denies open area, redness, swelling, bruising. She currently goes to [facility] (referral below) for her shoulder but is requesting to see that office for her leg, too. Advised pt since this is a new problem, needs to be evaluated in person for referral. Offered pt sick on site, pt declined seeing another provider besides PCP, states she will go to [facility]. Reviewed hrs, extended clinic/Thursday clinic, advised first come first serve. Pt also asked if product tester fiberglass Dr Gan called to notify about need for repeat labs. Advised her yes, PCP aware and ordered labs, she can do at [facility] or [facility]. Pt states she was told to do these in 2 weeks, advised her hematology stated to us 1 month (mid Nov), advised pt to call their office for clarification. Pt verbalized understanding, no further questions. * Telephone Encounter - Josefina Fam - 10/25/2024 10:22 AM EDT Tc from pt requesting a referral to a orthopedic surgeon , Dr. Xiao [address],[place] [address] Contact pt at [phone] documented in this encounter Plan of Treatment Not on file documented as of this encounter Visit Diagnoses Not on filedocumented in this encounter Additional Health Concerns Assessment Noted Time PHQ-9 Depression Total Score: 11 024 3:25 PM EST documented as of this encounter Care Teams Mail Handler Equipment Operator Relationship Specialty Start Date End Date Sanjuana Anderson MD [address] [place] [address] PCP - General Family Medicine 03/09/18 Wen Gan MD [facility] On[facility] [address] [place] [phone] Hematology and Oncology 01/27/24 Ebony Lal PsyD [facility] [address] [place] [phone] Psychiatry 01/27/24 Shania Xiao MD [address] [place] [address] [address], [place] [address] Orthopaedic Surgery 01/27/24 documented as of this encounter
--- OUTSIDE RECORDS SUMMARY | 2024-11-03 13:04 | XMS_ITS | Encounter Summary ---
Author Organization [employer] Address [address] [place] [address] 7[address] [place] [address] Care Team Providers Care Health Physicist Name Role Phone Sanjuana Anderson MD Primary Care Provider +1- [phone] Encounter Details Date Type Department Care Team (Late st Contact Info) Description 08/26/2022 [facility] [address] [place] [address] Sanjuana Anderson MD [address] [place] [address] Social History Tobacco Use Types Packs/Day Years [...] Priority Date/Time Associated Diagnosis Comments MAMMOGRAPHY Routine 08/26/2022 11:44 AM EDT MAMMOGRAPHY Routine 08/19/2022 4:04 PM EDT documented in this encounter Results * Hm Mammography (08/26/2022 11:44 AM EDT) HM Mammogram Birads -2 Anatomical Region Laterality Modality Other Historical Provider HEALTH MAINTENANCE Final Result * Hm Mammography (08/19/2022 4:04 PM EDT) HM Mammogram Birads 2 Anatomical Region Laterality Modality Other Narrative 08/19/2022 4:04 PM EDT Recommended routine annual screening us Historical Provider HEALTH MAINTENANCE Final Result documented in this encounter Visit Diagnoses Not on filedocumented in this encounter Additional Health Concerns Assessment Noted Time PHQ-9 Depression Total Score: 5 04/11/19 23 10:29 AM EST documented as of this encounter Care Teams Health Physicist Relationship Specialty Start Date End Date Sanjuana Anderson MD [address] [place] [address] PCP - General Family Medicine 03/09/18 Wen Gan MD [facility] [address] [phone] Hematology and Oncology 01/27/24 Ebony [facility] PsyD [facility] [address] [place] [address] Psychiatry 01/27/24 Shania Xiao MD [address] [address], [place] [address] Orthopaedic Surgery 01/27/24 documented as of this encounter
--- OUTSIDE RECORDS SUMMARY | 2024-11-03 13:04 | XMS_ITS | Clinical Summary ---
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 Active EPINEPHrine (Epipen) 0.3 MG/0.3ML injection syringeIndicati ons:Allergy, sequela Prn allergic reaction 1 each 04/11/19 23 Active FLUoxetine (PROzac) 20 MG tablet TAKE 1 TABLET BY MOUTH EVERY DAY IN THE MORNING 30 tablet 11 05/30/19 23 Active naloxone (Narcan) 4 mg/0.1 mL nasal spray PLEASE SEE ATTACHED FOR DETAILED DIRECTIONS 03/04/20 22 Active traZODone (Desyrel) 50 MG tablet TAKE 1 TABLET BY MOUTH AT BEDTIME 90 tablet 3 08/15/19 23 Active HYDROmorphone (Dilaudid) 2 MG tablet PLEASE SEE ATTACHED FOR DETAILED DIRECTIONS 09/24/19 23 Active Acetaminophen Extra Strength 500 MG tablet TAKE 1 TO 2 TABLET BY ORAL ROUTE EVERY 6 HOURS FOR 4 DAYS, THEN NEEDED 60 tablet 1 02/29/20 24 Active hydroxyurea (Hydrea) 500 MG capsuleIndicati ons:Sickle cell anemia with crisis (CMS/HCC) Take 1,000 mg by mouth Once per day. Take at the same time each day. Per heamatology Active folic acid (Folvite) 1 MG tabletIndicatio ns:Sickle cell anemia with crisis (CMS/HCC) Take by mouth Once per day. Active Melatonin Maximum Strength 5 MG tablet TAKE 1 TABLET BY MOUTH EVERY DAY AT BEDTIME NEEDED 90 tablet 3 08/25/19 25 Active Calcium Carb-Cholecalci ferol 600-10 MG-MCG tabletIndicatio ns:Aseptic necrosis of head of humerus, unspecified laterality (CMS/HCC) TAKE 1 TABLET BY MOUTH TWICE A DAY 180 tablet 3 11/01/19 25 Active Calcium Carb-Cholecalci ferol 600-10 MG-MCG tabletIndicatio ns:Aseptic necrosis of head of humerus, unspecified laterality (CMS/HCC) TAKE 1 TABLET BY MOUTH TWICE A DAY 180 tablet 3 07/06/19 24 025 Discontinued Active Problems Problem Noted Date Diagnosed Date Tinea pedis of right foot 01/27/2024 Overview (01/27/2024): Right distal toenail has some yellowing - Recommended Yellow Listerine, or apple cider vinegar everyday for foot fungus 01/27/24 Assessment & Plan (01/27/2024 3:39 PM EST): Right distal toenail has some yellowing - Recommended Yellow Listerine, or apple cider vinegar everyday for foot fungus 01/27/24 Family planning 05/06/2023 Overview (05/06/2023): - Pt denies family planning and Plan B at this time but she will call if she changes her mind Assessment & Plan (05/06/2023 3:15 PM EST): - Pt denies family planning and Plan B at this time but she will call if she changes her mind Abnormal mammogram 11/03/2022 Overview (11/03/2022): Pt seen Dr Bustos for a new density in breast at the 10 oclock position on 10/14/2022. -Genetic testing showed no clinicly specific mutations. -US guided biopsy on 02/11/2022 pathology revealed benign breast tissue. Assessment & Plan (11/03/2022 10:01 AM EDT): Pt seen Dr Bustos for a new density in breast at the 10 oclock position on 10/14/2022. -Genetic testing showed no clinicly specific mutations. -US guided biopsy on 02/11/2022 pathology revealed benign breast tissue. Other specified health status 07/18/2022 Overview (01/27/2024): -next physical exam due after 01/27/24 - [facility] -Health care proxy filsed 05/06/23 Assessment & Plan (01/27/2024 3:41 PM EST): -next physical exam due after 01/27/24 - [facility] [facility] -Health care proxy filsed 05/06/23 Assessment & Plan (05/06/2023 3:43 PM EST): -next physical exam due after 11/2023 -Health care proxy paperwork provided to the patient 05/06/23 Assessment & Plan (11/03/2022 9:44 AM EDT): -next physical exam due after 11/2023 -eye care facilitated by -dental home is Allergies 04/15/2022 Adult failure to thrive syndrome 04/11/2022 Overview (07/18/2022): Unable to maintain weight, requested ensure. Will place the request. Assessment & Plan (11/03/2022 9:43 AM EDT): Unable to maintain weight, requested ensure. Will place the request. Assessment & Plan (07/18/2022 10:43 AM EDT): Unable to maintain weight, requested ensure. Will place the request. Primary insomnia 04/11/2022 Overview (07/18/2022): Not controlled with melatonin. -Will try trazodone. -F/u 6 weeks in person. Assessment & Plan (11/03/2022 9:44 AM EDT): Not controlled with melatonin. -Will try trazodone. -F/u 6 weeks in person. Assessment & Plan (07/18/2022 12:07 PM EDT): Not controlled with melatonin. -Will try trazodone. -F/u 6 weeks in person. Shoulder pain 04/11/2022 Overview (05/06/2023): Improved. Hx avascular necrosis humoral head. -Pt had right shoulder hemiarthroplasty surgery 09/18/2022 and is doing well. - On 03/11/23, seen Orthopedics, left shoulder Left shoulder forward flexion 130, abduction 90, external rotation 70 degrees. Under sterile conditions, Depo- Medrol and Marcaine were injected in the left shoulder. Tolerated the procedure well. Physical therapy. Xray left shoulder 03/11/23: No acute fracture or dislocation. Persistent bony remodeling of the humeral head with flattening of the articular surface. Patchy sclerotic and cystic changes of the articular surface. Overall findings are consistent with osteonecrosis. - Continue to follow up with Orthopedics Assessment & Plan (05/06/2023 3:41 PM EST): Improved. Hx avascular necrosis humoral head. -Pt had right shoulder hemiarthroplasty surgery 09/18/2022 and is doing well. - On 03/11/23, seen Orthopedics, left shoulder Left shoulder forward flexion 130, abduction 90, external rotation 70 degrees. Under sterile conditions, Depo- Medrol and Marcaine were injected in the left shoulder. Tolerated the procedure well. Physical therapy. Xray left shoulder 03/11/23: No acute fracture or dislocation. Persistent bony remodeling of the humeral head with flattening of the articular surface. Patchy sclerotic and cystic changes of the articular surface. Overall findings are consistent with osteonecrosis. - Continue to follow up with Orthopedics Assessment & Plan (11/03/2022 9:45 AM EDT): Improved. Hx avascular necrosis humoral head. Assessment & Plan (07/18/2022 10:42 AM EDT): Improved. 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 - On 03/11/23, seen Orthopedics, left shoulder Left shoulder forward flexion 130, abduction 90, external rotation 70 degrees. Under sterile conditions, Depo- Medrol and Marcaine were injected in the left shoulder. Tolerated the procedure well. Physical therapy. Xray left shoulder 03/11/23: No acute fracture or dislocation. Persistent bony remodeling of the humeral head with flattening of the articular surface. Patchy sclerotic and cystic changes of the articular surface. Overall findings are consistent with osteonecrosis. - Continue to follow up with Orthopedics Assessment & Plan (05/06/2023 3:39 PM EST): -Pt had right shoulder hemiarthroplasty surgery 09/18/2022 and is doing well. - On 03/11/23, seen Orthopedics, left shoulder Left shoulder forward flexion 130, abduction 90, external rotation 70 degrees. Under sterile conditions, Depo- Medrol and Marcaine were injected in the left shoulder. Tolerated the procedure well. Physical therapy. Xray left shoulder 03/11/23: No acute fracture or dislocation. Persistent bony remodeling of the humeral head with flattening of the articular surface. Patchy sclerotic and cystic changes of the articular surface. Overall findings are consistent with osteonecrosis. - Continue to follow up with Orthopedics Assessment & Plan (11/03/2022 10:08 AM EDT): Pt had right shoulder hemiarthroplasty surgery 09/18/2022 and is doing well. Sickle cell anemia with crisis 08/15/2013 Overview (10/20/2024): Stable. Continue with oncologist Dr Bajwa and [facility] [place]. Followed by [facility] as well as orthopedics in [place]. Pain meds to be prescribed by me including oxycodone 10mg bid prn which she uses sparingly and acetaminophen with codeine which she uses sparingly for moderate pain. She declined refill today. -continue Hydroxyurea and folic acid. -Followed with Dr. Bajwa and [facility] -Pt had right shoulder hemiarthroplasty surgery 09/18/2022 and is doing well. -seen by hematology in [place] 07/05/24, follow up 3 months - Maintain hydration throughout the day - Discussed hydrea adherence - Continue chronic medications as prescribed -seen 10/17/[address] Wen Gan at [phone]. She wanted to give Dr Anderson an update after recent 10/17/24 visit with the pt. - increased hydroxyurea to 1500mg daily (3 tabs/day). - would like for PCP to order CMP and CBC w/ diff for pt to complete in 1 month to see how she is tolerating it. (Requesting this from PCP because pt lives in [place]). - She requests fax with lab results to be sent to [facility] for [facility] in 1 month for her to review to see how pt is tolerating increased dose - she will recheck hemoglobin electrophoresis at pt's next hematology appt in 3 months Assessment & Plan (01/27/2024 3:40 PM EST): Jonathan. Continue with oncologist Dr Bajwa and [facility] [place]. Followed by [facility] as well as orthopedics in [place]. Pain meds to be prescribed by me including oxycodone 10mg bid prn which she uses sparingly and acetaminophen with codeine which she uses sparingly for moderate pain. She declined refill today. -continue Hydroxyurea and folic acid. -Followed with Dr. Bajwa and [facility] -Pt had right shoulder hemiarthroplasty surgery 09/18/2022 and is doing well. Assessment & Plan (05/06/2023 3:42 PM EST): Jonathan. Continue with oncologist Dr Bajwa and [facility] [place]. Followed by [facility] as well as orthopedics in [place]. Pain meds to be prescribed by me including oxycodone 10mg bid prn which she uses sparingly and acetaminophen with codeine which she uses sparingly for moderate pain. She declined refill today. -continue Hydroxyurea and folic acid. -Followed with Dr. Bajwa and [facility] -Pt had right shoulder hemiarthroplasty surgery 09/18/2022 and is doing well. Assessment & Plan (11/03/2022 9:45 AM EDT): Stable. Continue with oncologist Dr Bajwa and [place] [place]. Followed by [facility] as well as orthopedics in [place]. Pain meds to be prescribed by me including oxycodone 10mg bid prn which she uses sparingly and acetaminophen with codeine which she uses sparingly for moderate pain. She declined refill today. -continue Hydroxyurea and folic acid. -Followed with Dr. Bajwa and [facility] -she plans to have surgery of her right shoulder in the future for avascular necrosis Assessment & Plan (07/18/2022 10:41 AM EDT): Stable. Continue with oncologist Dr Bajwa and [place] [place]. Followed by [facility] as well as orthopedics in [place]. Pain meds to be prescribed by me including oxycodone 10mg bid prn which she uses sparingly and acetaminophen with codeine which she uses sparingly for moderate pain. She declined refill today. -continue Hydroxyurea and folic acid. -Followed with Dr. Bajwa and [facility] -she plans to have surgery of her right shoulder in the future for avascular necrosis Ganglion cyst 10/30/2011 Anemia 07/25/2011 Aseptic necrosis of head of humerus 07/25/2011 Overview (01/27/2024): XR as far back as 2008. She uses pain medication very sparingly. It resolved with rest and tylenol #3. She also knows I can prescribe oxycodone as needed. - Recommended only taking Oxycodone for pain as needed 01/27/24 Assessment & Plan (01/27/2024 3:32 PM EST): XR as far back as 2008. She uses pain medication very sparingly. It resolved with rest and tylenol #3. She also knows I can prescribe oxycodone as needed. - Recommended only taking Oxycodone for pain as needed 01/27/24 Assessment & Plan (05/06/2023 3:40 PM EST): XR as far back as 2008. She uses pain medication very sparingly. It resolved with rest and tylenol #3. She also knows I can prescribe oxycodone as needed. Assessment & Plan (11/03/2022 9:43 AM EDT): XR as far back as 2008. She uses pain medication very sparingly. It resolved with rest and tylenol #3. She also knows I can prescribe oxycodone as needed. Assessment & Plan (07/18/2022 10:43 AM EDT): XR as far back as 2008. She uses pain medication very sparingly. It resolved with rest and tylenol #3. She also knows I can prescribe oxycodone as needed. Depressive disorder 07/25/2011 Overview (10/05/2023): -Followed by Ebony Lal PsyD Licensed Clinical Psychologist in [place] through sickle cell clinic, note from 10/01/23 reviewed. Assessment & Plan (05/06/2023 3:40 PM EST): -Followed by Ebony Lal PsyD Licensed Clinical Psychologist in [place] through sickle cell clinic Encounters Date Type Department Care Team Description 10/31/2024 7:00 PM EDT Office Visit [facility] [address] [place] [address] July Pruitt NP Popliteal pain (Primary Dx) 10/31/2024 Travel 10/29/[address] [facility] [address] [place], [place] [phone] Sanjuana Anderson MD Aseptic necrosis of head of humerus, unspecified laterality (CMS/HCC) 10/25/[address] [facility] [address] [place] [address] Sanjuana Anderson MD Referral 10/20/2024 Orders Only [facility] [address] [place] [address] Sanjuana Anderson MD Sickle cell anemia with crisis ([facility]) (Primary Dx) 10/19/[address] [facility] [address] [place] [address] Sanjuana Anderson MD Medication Question; Lab Orders 08/22/[address] [facility] [address] [place] [address] Sanjuana Anderson MD from Last 3 Months Immunizations Immunization Administration Dates Next Due HPV, Quadrivalent 12/21/2007,07/21/2007,06/16/19 08 Hep B, adult 09/23/2007,05/20/2007,04/14/2007 HiB, unspecified 01/27/2024 Influenza Injectable Quadriv alant Preservative Free IIV4 MDCK 12/29/2022 Influenza injectable quadriv alent IIV4 with preservative 01/05/2017,01/09/2016 Influenza injectable quadriv alent preservative free 12/03/2021,01/17/2021,12/06/2019,12/01,04/08/2018,12/11/2014 Influenza, IIV3, injectable 12/09/2013, 1 Influenza, Split (incl. ute fied surface antigen) 03/03/2013,11/14/2011 Influenza, seasonal, injecta ble, preservative free 12/21/2023 MMR 11/22/2020,10/25/2020 Meningococcal Polysaccharide A,C,Y,W-135 TT Conjugate 01/27/2024,05/06/2023,11/03/2022 Pfizer Covid-19 Vaccine 12+ 05/06/2023 Pneumococcal Conjugate PCV 13 01/05/2017 Pneumococcal Conjugate PCV 20 11/03/2022 Pneumococcal Polysaccharide PPSV23 07/22/2013, Pneumococcal, Unspecified 02/06/2005 TD (adult), 2 Lf tetanus tox oid, preservative free, adsorbed 02/03/2022,01/13/2007 Tdap 11/06/2023,11/14/2011 Varicella 11/22/2020,10/25/2020 Social History Tobacco Use Types Packs/Day Years [...] Orientation Straight 01/06/2022 10 :18 AM EDT Last Filed Vital Signs Vital Sign Reading Time Taken Comments Blood Pressure 108/70 10/31/2024 6:51 PM EDT Pulse 66 10/31/2024 6:51 PM EDT Temperature 36.7 C (98.1 F) 10/31/2024 6:51 PM EDT Respiratory Rate 16 10/31/2024 6:51 PM EDT Oxygen Saturation 98% 10/31/2024 6:51 PM EDT Inhaled Oxygen Concentration - - Weight 51.7 kg (114 lb) 10/31/2024 6:51 PM EDT Height 160 cm (5' 3 ) 01/27/2024 3:03 PM EST Body Mass Index 20.19 01/27/2024 3:03 PM EST Plan of Treatment Health Maintenance Due Date Last Done Comments Dental Oral Exam 1980 Dental X-Ray: Bitewings 1981 Dental X-Ray: Full Mouth 1981 Disability Screening 1980 Meningococcal B Vaccine (1 of 5 - Increased Risk) 07/11/1991 Family Planning (PISQ) 1996 Dental Prophylaxis 08/19/2022 02/17/2022 SDOH Screening 04/28/2024 04/28/2023 Depression Monitoring 07/26/2024 01/27/2024, 024 Influenza Vaccine (#1) 2024 , 12/29/2022, 12/03/2021, Additional history exists Alcohol/Substance Use Screening 01/26/2025 01/27/2024 COVID-19 Vaccine ( season) 2025 05/06/2023, 05/08/2022, 01/28/2021, Additional history exists Postponed from 11/08/2023 (Patient Refused) Tobacco Screening 10/31/2025 10/31/2024 Mammogram 02/21/2026 02/22/2024, 02/06, 08/26/2022, Additional history exists Cervical Cancer Screening 07/05/2026 HPV/Cotest 07/05/2026 04/08/2018 Pap Smear 07/05/2026 07/05/2021 Meningococcal Vaccine (3 - Risk 2-dose series) 01/26/2029 01/27/2024, 05/06/2023, 11/03/2022 Zoster Vaccines (1 of 2) 07/11/2031 DTaP/Tdap/Td Vaccines (4 - Td or Tdap) 11/05/2033 11/06/2023, 02/03/2022, 11/14/2011, Additional history exists RSV Patients and Patients Aged 60 years or older (1 - 1-dose 75+ series) 2056 Hepatitis B Vaccines Completed 09/23/2007, 05/20/2007, 04/14/2007 HPV Vaccines Completed 12/21/2007, 07/07, 06/16/2007 HIV Screening Completed 04/08/2018, 03/15/2018 Hepatitis C Screening Completed 04/08/2018 Pneumococcal Vaccine: Pediatrics (0 to 5 Years) and At-Risk Patients (6 to 49) Years Completed 11/03/2022, 01/05/2017, 07/22/2013, Additional history exists HIB Vaccines Completed 01/27/2024 Hepatitis A Vaccines Aged Out No long er eligible based on patient's age to complete this topic IPV Vaccines Aged Out No longer eligi ble based on patient's age to complete this topic RSV under 20 months Aged Out No longe r eligible based on patient's age to complete this topic Rotavirus Vaccines Aged Out No longer eligible based on patient's age to complete this topic Procedures Procedure Name Priority Date/Time Associated Diagnosis Comments BI MAMMOGRAM SCREENING TOMOSYNTHESIS BILATERAL Routine 02/22/2024 2:30 PM EST PROPHYLAXIS - ADULT Routine 02/17/2022 1 :00 PM EST PAP SMEAR Routine 07/05/2021 ZZZ HISTORICAL HPV MRNA E6/E7 Routine 04/08/2018 2:39 PM EST HM HEPATITIS C ANTIBODY Routine 04/08/2018 HM HIV 1/2 ANTIGEN AND ANTIBODY Routine 04/08/2018 from Last 3 Months or Most Recently Relevant to Health Maintenance Results * BI Mammogram Screening Tomosynthesis Bilateral (02/22/2024 2:30 PM EST) Anatomical Region Laterality Modality Breast Bilateral Mammography 02/22/2024 2:30 PM EST Narrative 03/03/2024 1:34 PM EST [address] [place] [address] Mammography Report Signed Patient: Pina Sullivan MR#: [id number] 3 : 1980 Acct:[id number] Age/Sex: 43 / F ADM Date: 02/22/24 Loc: HO.MAMMO Attending Dr: Sanjuana Anderson MD Ordering Physician: Sanjuana Anderson MD Results: 2B enign Findings Date of Service: 02/22/24 Follow Up: 1 Year From Orig ina Mammogram Procedure(s): MM tomosynthesis screening BI Accession Number(s): [id number] cc: Sanjuana Anderson MD EXAMINATION: MM SCREENING DIGITAL BREAST TOMOSYNTHESIS, BILATERAL CLINICAL INFORMATION: Screening. Asymptomatic. COMPARISON: Mammography: Comparison is made with available priors TECHNIQUE: Digital breast mammography with tomosynthesis is performed in both the craniocaudal and mediolateral oblique views along with computer-aided detection (CAD). FINDINGS: The breasts are heterogeneously dense, which may obscure small masses (ACR BI-RADS breast composition Category c). Bilateral scattered asymmetries are stable. There are no significant masses, abnormal calcifications, or other abnormalities. MM/MM tomosynthesis screening BI IMPRESSION: No mammographic evidence of malignancy. ASSESSMENT: BI-RADS BI-RADS 2 - Benign Findings RECOMMENDATION: Routine annual mammography screening. 1 year F/U This examination should not preclude the clinical evaluation of a suspicious palpable abnormality. This patient's information was entered into a reminder system with a target due date for their next mammogram. Electronically signed by: Trinity Eckert DO 03/03/2024 01:32 PM EST Dictated By: Trinity Eckert DO Signed By: <Electronically signed by Trinity Eckert DO in OV> 03/03/24 1332 DD/ 1430 TD/TT: 02/22/24 1447 Product Safety And Standards Engineer: Procedure Note Donotuseinterpreter, Image - 03/03/[address] [place] [address] Mammography Report Signed Patient: Pina Sullivan DMR#: [id number] 3 : 1980Acct:[id number] Age/Sex: 43 / FADM Date: 02/22/24 Loc: HO.MAMMO Attending Dr: Sanjuana Anderson MD Ordering Physician: Sanjuana Anderson MDResults: 2B enign Findings Date of Service: 02/22/24Follow Up: 1 Year From Orig inal Mammogram Procedure(s): MM tomosynthesis screening BI Accession Number(s): [id number] cc: Sanjuana Anderson MD EXAMINATION: MM SCREENING DIGITAL BREAST TOMOSYNTHESIS, BILATERAL CLINICAL INFORMATION: Screening. Asymptomatic. COMPARISON: Mammography: Comparison is made with available priors TECHNIQUE: Digital breast mammography with tomosynthesis is performed in both the craniocaudal and mediolateral oblique views along with computer-aided detection (CAD). FINDINGS: The breasts are heterogeneously dense, which may obscure small masses (ACR BI-RADS breast composition Category c). Bilateral scattered asymmetries are stable. There are no significant masses, abnormal calcifications, or other abnormalities. MM/MM tomosynthesis screening BI IMPRESSION: No mammographic evidence of malignancy. ASSESSMENT: BI-RADS BI-RADS 2 - Benign Findings RECOMMENDATION: Routine annual mammography screening. 1 year F/U This examination should not preclude the clinical evaluation of a suspicious palpable abnormality. This patient's information was entered into a reminder system with a target due date for their next mammogram. Electronically signed by: Trinity Eckert DO 03/03/2024 01:32 PM EST Dictated By: Trinity Eckert DO Signed By: <Electronically signed by Trinity Eckert DO in OV> 03/03/24 1332 DD/ 1430 TD/TT: 02/22/24 1447 Product Safety And Standards Engineer: us Sanjuana Anderson MD IMG BI PROCEDURES Final Re sult * Pap Smear (07/05/2021) Swab 07/05/2021 Narrative Heidi Wells RN - 02/18/2022 10:36 AM EST Completed with Emmy Gonzalez MD at [facility], see scanned report in care everywhere Historical Provider LAB CYTOLOGY ORDERABLES E dited Result - Final * HPV mRNA E6/E7 (04/08/2018 2:39 PM EST) HPV mRNA E6/E7 Not Detected NOT DETECTED [facility] Comment: This test was performed using the APTIMA(R) HPV Assay ([employer] This assay detects E6/E7 viral messenger RNA (mRNA) from 14 high-risk HPV types (16,18,31,33,35,39,45,51, 52,56,58,59,66,68). For additional information please refer to: http://education.Arradiance/faq/QZL721q4 (This link is being provided for informational/ educational purposes only.) The analytical performance characteristics of this assay have been determined by [employer] [place], [place]. The modifications have not been cleared or approved by the FDA. This assay has been validated pursuant to the CLIA regulations and is used for clinical purposes. Test Performed by [facility], [employer] [place], [address] [place] [address] Timmy Jiménez M.D., Ph.D., Director of Laboratories , CLIA [id number] Please note: Effective 11/19/2015, HPV testing will be performed using [employer]'s APTIMA test which targets mRNA. Detecting mRNA instead of DNA, as in older methods, offers significant improvements in specificity. 04/08/2018 2:39 PM EST Sanjuana Anderson MD HISTORICAL/NON ORDERABLE L ABS Final Result [facility] [address] * HM Hepatitis C Antibody (04/08/2018) Hepatitis C Antibody Nonreactive Blood Historical Provider HEALTH MAINTENANCE Final Result * HM HIV 1/2 Antigen and Antibody (04/08/2018) HIV Ag/Ab Nonreactive Historical Provider MD HEALTH MAINTENANCE Final Result from Last 3 Months or Most Recently Relevant to Health Maintenance Insurance [place] [id number] MEDICAID STAND ADULT Advance Directives Documents on File Type Date Recorded Patient Flat Folder Expl lauraion Advance Directives and Livjosue g Will 05/08/2023 1:40 PM HCP Care Teams 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 Wrapping Machine Operator Relationship Specialty Start Date End Date Sanjuana Anderson MD [address] [place] [address] PCP - General Family Medicine 03/09/18 Wen Gan MD [facility] for Hematology and Medical Oncology [address] [place] [place] [address] Hematology and Oncology 01/27/24 Ebony Lal PsyD [facility] Psych Heme [facility] [address] [place] [address] Psychiatry 01/27/24 Shania Xiao MD [address] [place] [address], [place] [address] Orthopaedic Surgery 01/27/24
[2024-11-03 13:09] LABS: NRBC Pct Auto 31.6 /100WBC (0.0-0.2)
[2024-11-03 13:13] LABS: MANUAL DIFF FLAG SCAN
[2024-11-03 13:43] LABS: Alanine Aminotransferase 22 U/L (0-31); Albumin Level 4.3 g/dL (3.5-5.0); Alkaline Phosphatase 84 U/L (39-117); Anion Gap 12 (12-20); Blood Urea Nitrogen 10 mg/dL (9-16); Calcium 9.0 mg/dL (8.4-10.2); Carbon Dioxide 24 mmol/L (22-29); Chloride 108 mmol/L (96-108); Estimated Glomerular Filt Rate > 60; Potassium 4.4 mmol/L (3.3-5.1); Sodium 140 mmol/L (135-145); Total Protein 8.1 g/dL (6.5-8.0)
[2024-11-03 13:55] LABS: Aspartate Amino Transferase 39 U/L (5-31)
== END 2024-11-03 11:58 | disposition home or self-care (01) ==
LOC: HO.LAB 11:57
PROVIDERS: PCP Family Medicine; Visit Provider Family Medicine
DX: D57.00 Hb-SS disease with crisis, unspecified (principal)
CPT/HCPCS: 36415; 80053; 85025

== ENCOUNTER 2024-11-23 16:40 | Outpatient (REF) | payer MEDICAID, SELFPAY ==
[2024-11-23 16:56] LABS: Hemoglobin 7.2 g/dl (12.0-16.0); Mean Corpuscular HGB Conc 36.0 g/dl (31.0-35.0); Mean Corpuscular Hemoglobin 37.7 pg (27.0-33.0); Mean Corpuscular Volume 104.7 fL (80.0-98.0); NRBC Abs Auto 2.280 X10*3/uL (0.0-0.012); Platelet Count 229 X10*3/uL (160-400); Red Blood Count 1.91 X10*6/uL (4.20-5.50); White Blood Count 4.5 X10*3/uL (4.8-10.8)
[2024-11-23 17:23] LABS: Anion Gap 9 (12-20); Blood Urea Nitrogen 11 mg/dL (9-16); Calcium 8.8 mg/dL (8.4-10.2); Carbon Dioxide 25 mmol/L (22-29); Chloride 109 mmol/L (96-108); Estimated Glomerular Filt Rate > 60; Potassium 3.9 mmol/L (3.3-5.1); Sodium 139 mmol/L (135-145)
[2024-11-23 17:24] LABS: Hematocrit 20.0 % (37.0-47.0); NRBC Pct Auto 50.2 /100WBC (0.0-0.2)
--- OUTSIDE RECORDS SUMMARY | 2024-11-23 19:20 | XMS_ITS | Encounter Summary ---
Author Organization [employer] Address [address] [place] [address] 7t [place] [address] Care Team Providers Care Guitar Teacher Name Role Phone Sanjuana Anderson MD Primary Care Provider +1- [phone] Reason for Visit * Reason Onset Date Comments PT1 04/19/2024 Encounter Details Date Type Department Care Team ([facility] Contact Info) Description 04/19/2024 Telephone [facility] MEDICINE [address] [place] [address] Sanjuana Anderson MD [address] [place] [address] PT1 Social History Tobacco Use Types Packs/Day [...] Y/N: Yes Provider name or facility name: [facility] [address], [place] [address] Escort needed: Y/N: Yes Do you have [...] documented as of this encounter Care Teams Guitar Teacher Relationship Specialty Start Date End Date Sanjuana Anderson MD [address] [place] [address] PCP - General Family Medicine 03/09/[address] [facility] for Hematology and Medical Oncology [address] [place] [phone] Hematology and Oncology 01/27/24 Ebony Lal PsyD [facility] [address] [address] [facility] [place] [address] Psychiatry 01/27/24 Shania Xiao MD [address] [place] [address], [place] [address] Orthopaedic Surgery 01/27/24 documented as of this encounter
--- OUTSIDE RECORDS SUMMARY | 2024-11-23 19:20 | XMS_ITS | Encounter Summary ---
Author Organization [employer] Address [address] [facility] 7t [place] [address] Care Team Providers Care Prop Attendant Name Role Phone Sanjuana Anderson MD Primary Care Provider +1- [phone] Reason for Visit * Reason Onset Date Comments Referral 10/25/2024 Encounter Details Date Type Department Care Team ([facility] st Contact Info) Description 10/25/2024 Telephone [facility] MEDICINE [address] [place], [place] [phone] Sanjuana Anderson MD [address] [place], [place] [phone] Referral Social History Tobacco Use Types Packs/Day [...] Telephone call to pt via [employer] #[id number]. Pt reports hitting her leg several months ago and for the last few days has had pain on/off behind her knee near where her calf starts. Denies open area, redness, swelling, bruising. She currently goes to [facility] (referral below) for her shoulder but is requesting to see that office for her leg, too. Advised pt since this is a new problem, needs to be evaluated in person for referral. Offered pt sick on site, pt declined seeing another provider besides PCP, states she will go to [facility]. Reviewed hrs, extended clinic/Thursday clinic, advised first come first serve. Pt also asked if corporate treasury analyst Dr Gan called to notify about need for repeat labs. Advised her yes, PCP aware and ordered labs, she can do at [facility] or [facility]. Pt states she was told to do these in 2 weeks, advised her hematology stated to us 1 month (mid Nov), advised pt to call their office for clarification. Pt verbalized understanding, no further questions. * Telephone Encounter - Josefina Fam - 10/25/2024 10:22 AM EDT Tc from pt requesting a referral to a orthopedic surgeon , Dr. Xiao [address],[place] [address] Contact pt at [phone] documented in this encounter Plan of Treatment Not on file documented as of this encounter Visit Diagnoses Not on filedocumented in this encounter Additional Health Concerns Assessment Noted Time PHQ-9 Depression Total Score: 11 024 3:25 PM EST documented as of this encounter Care Teams Prop Attendant Relationship Specialty Start Date End Date Sanjuana Anderson MD [address] [place] [address] PCP - General Family Medicine 03/09/18 Wen Gan MD [facility] for Hematology and Medical Oncology [address] [place] [phone] Hematology and Oncology 01/27/24 Ebony Lal PsyD [facility] Psych [facility] [address] [place] [phone] Psychiatry 01/27/24 Shania Xiao MD [address] [place] [address] 4, [place] [address] Orthopaedic Surgery 01/27/24 documented as of this encounter
--- OUTSIDE RECORDS SUMMARY | 2024-11-23 19:20 | XMS_ITS | Encounter Summary ---
Author Organization [employer] Address [address] [facility] 7t [place] [address] Care Team Providers Care Cattle Killer Name Role Phone Sanjuana Anderson MD Primary Care Provider +1- [phone] Encounter Details Date Type Department Care Team (Late st Contact Info) Description 05/31/2024 Orders Only [facility] MEDICINE [address] [place], [place] [phone] Sanjuana Anderson MD [address] [place] [address] Sickle cell anemia with crisis (CMS/HCC) (Primary [...] documented as of this encounter Care Teams Cattle Killer Relationship Specialty Start Date End Date Sanjuana Anderson MD [address] [place] [address] PCP - General Family Medicine 03/09/18 Wen Gan MD [facility] for Hematology and Medical Oncology [address] [place] [address] Hematology and Oncology 01/27/24 Ebony Lal PsyD [facility]e Krystina [facility] [address] [place] [address] Psychiatry 01/27/24 Shania Xiao MD [address] [address], [address] [place], [place] [phone] Orthopaedic Surgery 01/27/24 documented as of this encounter
--- OUTSIDE RECORDS SUMMARY | 2024-11-23 19:21 | XMS_ITS | Encounter Summary ---
Author Organization [employer] [facility] Address [address] [place] [address] 7t [place] [address] Care Team Providers Care Svp Group Director Name Role Phone Sanjuana Anderson MD Primary Care Provider +1- [phone] Encounter Details Date Type Department Care Team ([facility] st Contact Info) Description 08/08/2022 Abstract [facility] MEDICINE [address] [place] [address] Sanjuana Anderson MD [address] [place] [address] Social History Tobacco Use Types Packs/Day Years [...] documented as of this encounter Care Teams Svp Group Director Relationship Specialty Start Date End Date Sanjuana Anderson MD [address] [place] [address] PCP - General Family Medicine 03/09/18 Wen Gan MD [facility] for Hematology and Medical Oncology [address] [place] [address] Hematology and Oncology 01/27/24 Ebony Lal PsyD [facility] [address] [place] [address] Psychiatry 01/27/24 Shania Xiao MD [address] [place] [address], [address] [place], [place] [phone] Orthopaedic Surgery 01/27/24 documented as of this encounter
--- OUTSIDE RECORDS SUMMARY | 2024-11-23 19:21 | XMS_ITS | Encounter Summary ---
Author Organization [employer] [facility] Address [address] [place] [address] 7 [place] [address] Care Team Providers Care Wrapping Checker Name Role Phone Sanjuana Anderson MD Primary Care Provider +1- [phone] Encounter Details Date Type Department Care Team (Latest Contact Info) Description 10/13/2018 Abstract [facility] Dental, Provider, DDS Social [...] on filedocumented in this encounter Care Teams Wrapping Checker Relationship Specialty Start Date End Date Sanjuana Anderson MD [address] [place] [address] PCP - General Family Medicine 03/09/18 Wen Gan MD [facility] for Hematology and Medical Oncology [address] [place] [address] Hematology and Oncology 01/27/24 Ebony Lal PsyD [facility] Heme Krystina [facility] [address] [place] [address] Psychiatry 01/27/24 Shania Xiao MD [address] [place] [address], [place] [address] Orthopaedic Surgery 01/27/24 documented as of this encounter
--- OUTSIDE RECORDS SUMMARY | 2024-11-23 19:21 | XMS_ITS | Encounter Summary ---
Author Organization [employer] Address [address] [place] [address] 7t [place] [address] Care Team Providers Care Wrap Yarn Sorter Name Role Phone Sanjuana Anderson MD Primary Care Provider +1- [phone] Encounter Details Date Type Department Care Team ([facility] st Contact Info) Description 08/26/2022 Abstract [facility] MEDICINE [address] [place] [address] Sanjuana Anderson MD [address] [place] [address] Social History Tobacco Use Types Packs/Day Years [...] documented as of this encounter Care Teams Wrap Yarn Sorter Relationship Specialty Start Date End Date Sanjuana Anderson MD [address] [place] [address] PCP - General Family Medicine 03/09/18 Wen Gan MD [facility] for Hematology and Medical Oncology [address] [place] [phone] Hematology and Oncology 01/27/24 Ebony Lal PsyD [facility] [address] [place] [address] Psychiatry 01/27/24 Shania Xiao MD [address] [address], [place] [address] Orthopaedic Surgery 01/27/24 documented as of this encounter
--- OUTSIDE RECORDS SUMMARY | 2024-11-23 19:21 | XMS_ITS | Encounter Summary ---
Author Organization [employer] Address [address] [facility] 7t [place] [address] Care Team Providers Care Captain Of Guards Name Role Phone Sanjuana Anderson MD Primary Care Provider +1- [phone] Encounter Details Date Type Department Care Team ([facility] st Contact Info) Description 11/23/2024 Telephone [facility] MEDICINE [address] [place] [address] Sanjuana Anderson MD [address] [place] [address] Social History Tobacco Use Types Packs/Day Years [...] encounter Miscellaneous Notes * Telephone Encounter - Elizabeth Ureña RN - 11/23/2024 3:32 PM EDT TC placed to the pt with BLS director of group sales #[id number] to inform per PCP that the pt will need to get BasicP and CBC redrawn again as the previous labs done on 11/03/2024 were drawn too soon. The pt was advised to have them drawn at [facility] as PCP has placed new orders. Once they are resulted they will be faxed to Wen Gan MD [address] [place] [address] Phone: tel: fax: Pt agreeable to all these instructions and will present to the lab before the end of this week * Telephone Encounter - Sanjuana Anderson MD - 11/23/2024 3:18 PM EDT Please ask Pina to get labs drawn, previous CBC was done too soon.Please fax results to cuprous chloride operator in [place]. See note from 10/19/24 for the physician information. Thank you. documented in this encounter Plan of Treatment Not on file documented as of this encounter Visit Diagnoses Not on filedocumented in this encounter Additional Health Concerns Assessment Noted Time PHQ-9 Depression Total Score: 11 024 3:25 PM EST documented as of this encounter Care Teams Captain Of Guards Relationship Specialty Start Date End Date Sanjuana Anderson MD [address] [place] [address] PCP - General Family Medicine 03/09/18 Wen Gan MD [facility] for Hematology and Medical Oncology [address] [address] Hematology and Oncology 01/27/24 Ebony Lal PsyD [facility] [address] [place] [address] Psychiatry 01/27/24 Shania Xiao MD [address] [address], [place] [address] Orthopaedic Surgery 01/27/24 documented as of this encounter
--- OUTSIDE RECORDS SUMMARY | 2024-11-23 19:21 | XMS_ITS | Clinical Summary ---
Author Organization [employer] Address [address] [place] [address] 7t [place] [address] Care Team Providers Care Deodorizer Operator Name Role Phone Sanjuana Anderson MD Primary Care Provider +1- [phone] Allergies Active Allergy Reactions Criticality Noted Date [...] - [facility] -Health care proxy filsed 05/06/23 Assessment & Plan (01/27/2024 3:41 PM EST): -next physical exam due after 01/27/24 - [facility] -Health care proxy filsed 05/06/23 Assessment & [...] [facility] on [place]. Followed by [facility] as well as orthopedics in [place]. Pain meds to be prescribed by me including oxycodone 10mg bid prn which she uses sparingly and acetaminophen with codeine which she uses sparingly for moderate pain. She declined refill today. -continue Hydroxyurea and folic acid. -Followed with Dr. Bajwa and [facility] -Pt had right shoulder hemiarthroplasty surgery 09/18/2022 and is doing well. -seen by hematology in [place] 07/05/24, follow up 3 months - Maintain hydration throughout the day - Discussed hydrea adherence - Continue chronic medications as prescribed -seen 10/17/[address] Wen Gan at [phone]. She wanted to give Dr Anderson an update after recent 10/17/24 visit with the pt. - increased hydroxyurea to 1500mg daily (3 tabs/day). - would like for PCP to order CMP and CBC w/ diff for pt to complete in 1 month to see how she is tolerating it. (Requesting this from PCP because pt lives in [place]). - She requests fax with lab results to be sent to [facility] in 1 month for her to review to see how pt is tolerating increased dose - she will recheck hemoglobin electrophoresis at pt's next hematology appt in 3 months Assessment & Plan (01/27/2024 3:40 PM EST): Jonathan. Continue with oncologist Dr Bajwa and [facility] [place]. Followed by [facility] as well as orthopedics in [place]. Pain meds to be prescribed by me including oxycodone 10mg bid prn which she uses sparingly and acetaminophen with codeine which she uses sparingly for moderate pain. She declined refill today. -continue Hydroxyurea and folic acid. -Followed with Dr. Bajwa and [facility] -Pt had right shoulder hemiarthroplasty surgery 09/18/2022 and is doing well. Assessment & Plan (05/06/2023 3:42 PM EST): Jonathan. Continue with oncologist Dr Bajwa and [facility] [place]. Followed by [facility] as well as orthopedics in [place]. Pain meds to be prescribed by me including oxycodone 10mg bid prn which she uses sparingly and acetaminophen with codeine which she uses sparingly for moderate pain. She declined refill today. -continue Hydroxyurea and folic acid. -Followed with Dr. Bajwa and [facility] -Pt had right shoulder hemiarthroplasty surgery 09/18/2022 and is doing well. Assessment & Plan (11/03/2022 9:45 AM EDT): Stable. Continue with oncologist Dr Bajwa and [place] [facility] [place]. Followed by [facility] as well as orthopedics in [place]. Pain meds to be prescribed by me including oxycodone 10mg bid prn which she uses sparingly and acetaminophen with codeine which she uses sparingly for moderate pain. She declined refill today. -continue Hydroxyurea and folic acid. -Followed with Dr. 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 Continue with oncologist Dr Bajwa and [place] [facility] [place]. Followed by [facility] as well as orthopedics in [place]. Pain meds to be prescribed by me including oxycodone 10mg bid prn which she uses sparingly and acetaminophen with codeine which she uses sparingly for moderate pain. She declined refill today. -continue Hydroxyurea and folic acid. -Followed with Dr. Bajwa and [facility] -she plans to have surgery of [...] Ebony Lal PsyD Licensed Clinical Psychologist in [place] through sickle cell clinic, note from 10/01/23 reviewed. Assessment & Plan (05/06/2023 3:40 PM EST): -Followed by Ebony Lal PsyD Licensed Clinical Psychologist in [place] through sickle cell clinic Encounters Date Type Department Care Team Description 11/23/2024 Telephone [facility] P[facility] [address] [place] [address] Alex Kunz MD 11/23/2024 Telephone [facility] [address] [place] [address] Sanjuana Anderson MD 11/23/2024 Orders Only [facility] [address] [place], [place] [phone] Sanjuana Anderson MD Sickle cell disease without crisis ([facility]) (Primary Dx) 11/09/2024 Telephone [facility] [address] [place] [phone] Sanjuana Anderson MD Referral; Referral-Ortho 11/03/2024 Results Follow-Up [facility] [address] [place] [phone] Sanjuana Anderson MD CBC auto differential, Comprehensive Metabolic Panel 11/03/2024 Orders Only [facility] [address] [place] [address] Sanjuana Anderson MD 10/31/2024 7:00 PM EDT [facility] [address] [address] July Pruitt NP Popliteal pain (Primary Dx) 10/31/2024 Travel 10/29/2024 Refill [facility] [address] [place] [phone] Sanjuana Anderson MD Aseptic necrosis of head of humerus, unspecified laterality (CMS/HCC) 10/25/2024 Telephone [facility] [address] [place] [phone] Sanjuana Anderson MD Referral 10/20/2024 [facility] [address] [address] Sanjuana Anderson MD Sickle cell anemia with crisis ([facility]) (Primary Dx) 10/19/2024 Telephone [facility] [address] [place] [phone] Sanjuana Anderson MD Medication Question; Lab Orders from Last 3 Months Immunizations Immunization Administration [...] 04/28/2024 04/28/2023 Depression Monitoring 07/26/2024 01/27/2024, 024 COVID-19 Vaccine ( season) 2024 05/06/2023, 05/08/2022, 01/28/2021, Additional history exists Influenza Vaccine (#1) 2024 , 12/29/2022, 12/03/2021, Additional history exists Alcohol/Substance Use Screening 01/26/2025 01/27/2024 Tobacco Screening 10/31/2025 10/31/2024 Mammogram 02/21/2026 02/22/2024, [...] Procedure Name Priority Date/Time Associated Diagnosis Comments BASIC METABOLIC PANEL Routine 11/23/2024 4:49 PM EDT Sickle cell 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) CBC Routine 11/23/2024 4:49 PM EDT Sickle cell 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) SLIDE REVIEW Routine 11/03/2024 12:19 PM EDT COMPREHENSIVE METABOLIC PANEL Routine 11/03/2024 12:19 PM EDT Sickle cell anemia with crisis (CMS/HCC) CBC WITH AUTO DIFFERENTIAL Routine 11/03/2024 12:19 PM EDT Sickle cell anemia with crisis (CMS/HCC) BI MAMMOGRAM SCREENING TOMOSYNTHESIS BILATERAL Routine 02/22/2024 2:30 PM EST PROPHYLAXIS - ADULT Routine 02/17/2022 1 :00 PM EST PAP SMEAR Routine 07/05/2021 ZZZ HISTORICAL HPV MRNA E6/E7 Routine 04/08/2018 2:39 PM EST HM HEPATITIS C ANTIBODY Routine 04/08/2018 HM HIV 1/2 ANTIGEN AND ANTIBODY Routine 04/08/2018 from Last 3 Months or Most Recently Relevant to Health Maintenance Results * (ABNORMAL) CBC (11/23/2024 4:49 PM EDT) White Blood Count 4.5(L) 4.8 - 10.8 X10*3/uL [facility] Red Blood Count 1.91(L) 4.20 - 5.50 X10*6/uL [facility] Hemoglobin 7.2(L) 12.0 - 16.0 g/dl [facility] Hematocrit 20.0(LL) 37.0 - 47.0 % [facility] Comment:RESULTS OF HCT HARVEY D TO AND READ BACK BY DR ALEX CHENEY 11/23/24 AT 1724 BY GRADY. Mean Corpuscular Volume 104.7(H) 80.0 - 98.0 fL [facility] Mean Corpuscular Hemoglobin 37.7(H) 27.0 - 33.0 pg [facility] Mean Corpuscular HGB Conc 36.0(H) 31.0 - 35.0 g/dl [facility] Red Cell Distribution Width 18.9(H) 11.0 - 16.0 % [facility] Platelet Count 229 160 - 400 X10*3/uL [facility] Mean Platelet Volume 10.3 9.4 - 12.3 fL [facility] NRBC Pct Auto 50.2(H) 0.0 - 0.2 /100WBC [facility] NRBC Abs Auto 2.280(H) 0.0 - 0.012 X10*3/uL [facility] Blood Venous blood specimen / Unknown 11/23/2024 4:49 PM EDT 11/23/2024 4:49 PM EDT Sanjuana Anderson MD LAB BLOOD ORDERABLES Final Result [facility] [address] [place] [address] [phone] * (ABNORMAL) Basic Metabolic Panel (11/23/2024 4:49 PM EDT) Sodium 139 135 - 145 mmol/L [facility] Potassium 3.9 3.3 - 5.1 mmol/L [facility] Chloride 109(H) 96 - 108 mmol/L [facility] Carbon Dioxide 25 22 - 29 mmol/L [facility] Anion Gap 9(L) 12 - 20 [facility] Urea Nitrogen (BUN) 11 9 - 16 mg/dL [facility] Creatinine, Serum 0.64 0.5 - 1.4 mg/dL [facility] Estimated Glomerular Filt Rate >60 [facility] Comment:Chronic Kidney Disea se: Estimated GFR < 60 mL/min/1.40h1Ykzvlg Kidney Disease: Estimated GFR < 15 mL/min/1.73m2 Glucose 93 60 - 115 mg/dL [facility] Calcium 8.8 8.4 - 10.2 mg/dL [facility] Blood Venous blood specimen / Unknown 11/23/2024 4:49 PM EDT 11/23/2024 4:49 PM EDT Sanjuana Anderson MD LAB BLOOD ORDERABLES Final Result Performing Organization Address [facility]/ZIP Co de Phone Number [facility] [address] [place] [phone] * Slide Review (11/03/2024 12:19 PM EDT) Slide Review VERIFIED [facility] 11/03/2024 12:1 9 PM EDT 11/03/2024 12:19 PM EDT Sanjuana Anderson MD LAB BLOOD ORDERABLES Final Result Performing Organization Address [facility] de Phone Number [facility] [address] [place] [phone] * (ABNORMAL) CBC auto differential (11/03/2024 12:19 PM EDT) White Blood Count 3.8(L) 4.8 - 10.8 X10*3/uL [facility] Red Blood Count 2.42(L) 4.20 - 5.50 X10*6/uL [facility] Hemoglobin 8.6(L) 12.0 - 16.0 g/dl [facility] Hematocrit 24.7(L) 37.0 - 47.0 % [facility] Mean Corpuscular Volume 102.1(H) 80.0 - 98.0 fL [facility] Mean Corpuscular Hemoglobin 35.5(H) 27.0 - 33.0 pg [facility] Mean Corpuscular HGB Conc 34.8 31.0 - 35.0 g/dl [facility] Red Cell Distribution Width 16.8(H) 11.0 - 16.0 % [facility] Platelet Count 202 160 - 400 X10*3/uL [facility] Mean Platelet Volume 11.0 9.4 - 12.3 fL [facility] Neutrophils Percent Auto 33.2(L) 45 - 73 % [facility] Imm Gran Pct Auto 0.5(H) 0.0 - 0.4 % [facility] Lymphocytes Percent Auto 52.7(H) 20 - 40 % [facility] Monocytes Percent Auto 12.0(H) 2 - 11 % [facility] Eosinophils Percent Auto 1.3 0 - 4 % [facility] Basophils Percent Auto 0.3 0 - 2 % [facility] NRBC Pct Auto 31.6(H) 0.0 - 0.2 /100WBC [facility] Neutrophils Absolute Auto 1.3(L) 2.0 - 8.3 x10*3/uL [facility] Imm Gran Abs Auto 0.02 0.00 - 0.03 X10*3/uL [facility] Lymphocytes Absolute Auto 2.0 1.2 - 4.9 X10*3/uL [facility] Monocytes Absolute Auto 0.5 0.1 - 1.2 X10*3/uL [facility] Eosinophils Absolute Auto 0.1 0.0 - 0.4 X10*3/uL [facility] Basophils Absolute Auto 0.0 0.0 - 0.2 X10*3/uL [facility] NRBC Abs Auto 1.210(H) 0.0 - 0.012 X10*3/uL [facility] Blood Venous blood specimen / Unknown 11/03/2024 12:19 PM EDT 11/03/2024 12:19 PM EDT us Sanjuana Anderson MD LAB BLOOD ORDERABLES Edite d Result - Final [facility] [address] [place] [address] [phone] * (ABNORMAL) Comprehensive Metabolic Panel (11/03/2024 12:19 PM EDT) Sodium 140 135 - 145 mmol/L [facility] Potassium 4.4 3.3 - 5.1 mmol/L [facility] Chloride 108 96 - 108 mmol/L [facility] Carbon Dioxide 24 22 - 29 mmol/L [facility] Anion Gap 12 12 - 20 [facility] Urea Nitrogen (BUN) 10 9 - 16 mg/dL [facility] Creatinine, Serum 0.62 0.5 - 1.4 mg/dL [facility] Estimated Glomerular Filt Rate >60 [facility] Comment:Chronic Kidney Disea se: Estimated GFR < 60 mL/min/1.12g0Glwpdc Kidney Disease: Estimated GFR < 15 mL/min/1.73m2 Glucose 85 60 - 115 mg/dL [facility] Calcium 9.0 8.4 - 10.2 mg/dL [facility] Bilirubin, Total 1.1(H) 0.0 - 1.0 mg/dL [facility] Aspartate Amino Transferase 39(H) 5 - 31 U/L [facility] Alanine Aminotransferase 22 0 - 31 U/L [facility] Total Protein 8.1(H) 6.5 - 8.0 g/dL [facility] Albumin Level 4.3 3.5 - 5.0 g/dL [facility] Alkaline Phosphatase 84 39 - 117 U/L [facility] Blood Venous blood specimen / Unknown 11/03/2024 12:19 PM EDT 11/03/2024 12:19 PM EDT us Sanjuana Anderson MD LAB BLOOD ORDERABLES Final Result [facility] [address] [place] [address] [phone] * BI Mammogram Screening Tomosynthesis Bilateral (02/22/2024 2:30 PM EST) Anatomical Region Laterality Modality Breast Bilateral Mammography 02/22/2024 2:30 PM EST Narrative 03/03/2024 1:34 PM EST [address] [place] [address] Mammography Report Signed Patient: Pina Sullivan MR#: [id number] 3 : 1980 Acct:[id number] Age/Sex: 43 / F ADM Date: 02/22/24 Loc: HO.MAMMO Attending Dr: Sanjuana Anderson MD Ordering Physician: Sanjuana Anderson MD Results: 2B enign Findings Date of Service: 02/22/24 Follow Up: 1 Year From Orig inal Mammogram Procedure(s): MM tomosynthesis screening BI Accession Number(s): [id number] cc: Sanjuana Anderson MD EXAMINATION: MM SCREENING [...] 03/03/24 1332 DD/ 1430 TD/TT: 02/22/24 1447 Reliability Engineer: Procedure Note Donotuseinterpreter, Image - 03/03/[address] [place] [address] Mammography Report Signed Patient: Pina Sullivan#: [id number] 3 : 1980Acct:[id number] Age/Sex: 43 / FADM Date: 02/22/24 Loc: HO.MAMMO Attending Dr: Sanjuana Anderson MD Ordering Physician: Sanjuana Anderson MDResults: 2B enign Findings Date of Service: 02/22/24Follow Up: 1 Year From Orig inal Mammogram Procedure(s): MM tomosynthesis screening BI Accession Number(s): [id number] cc: Sanjuana Anderson MD EXAMINATION: MM SCREENING [...] 03/03/24 1332 DD/ 1430 TD/TT: 02/22/24 1447 Reliability Engineer: us Sanjuana Anderson MD IMG BI PROCEDURES Final Re sult * Pap Smear (07/05/2021) Swab 07/05/2021 Narrative Heidi Wells RN - 02/18/2022 10:36 AM EST Completed with Emmy Gonzalez [place] [facility], see scanned report in care everywhere Historical Provider LAB CYTOLOGY ORDERABLES E dited Result - Final * HPV mRNA E6/E7 (04/08/2018 2:39 PM EST) HPV mRNA E6/E7 Not Detected NOT DETECTED [facility] Comment: This test was performed using the APTIMA(R) HPV Assay ([employer] This assay detects E6/E7 viral messenger RNA (mRNA) from 14 high-risk HPV types (16,18,31,33,35,39,45,51, 52,56,58,59,66,68). For additional information please refer to: http://education.GroupMe/faq/WDC169n4 (This link is being provided for informational/ educational purposes only.) The analytical performance characteristics of this assay have been determined by [facility] [place], [place]. The modifications have not been cleared or approved by the FDA. This assay has been validated pursuant to the CLIA regulations and is used for clinical purposes. Test Performed by [facility], [facility], [address] [place] [address] Timmy Jiménez M.D., Ph.D., Director of Laboratories , CLIA [id number] Please note: Effective 11/19/2015, HPV testing will be performed using [employer]'s APTIMA test which targets mRNA. Detecting mRNA instead of DNA, as in older methods, offers significant improvements in specificity. 04/08/2018 2:39 PM EST Sanjuana Anderson MD HISTORICAL/NON ORDERABLE L ABS Final Result [facility] [address] * HM Hepatitis C Antibody (04/08/2018) Hepatitis C Antibody Nonreactive Blood Historical Provider HEALTH MAINTENANCE Final Result * HM HIV 1/2 Antigen and Antibody (04/08/2018) HIV Ag/Ab Nonreactive us Historical Provider HEALTH MAINTENANCE Final Result from Last 3 Months or Most Recently Relevant to Health Maintenance [place] [facility] MEDICAID STAND ADULT Advance Directives Documents on File Type Date Recorded Patient Supervisor [employer] lauraion Advance Directives and Livjosue g Will 05/08/2023 1:40 PM HCP Care Teams Deodorizer Operator Relationship Specialty Start Date End Date Sanjuana Anderson MD [address] [place] [address] PCP - General Family Medicine 03/09/18 Wen Gan MD [facility] [address] [place] [address] Hematology and Oncology 01/27/24 Ebony Lal PsyD [facility] [address] [place] [address] Psychiatry 01/27/24 Shania Xiao MD [address] [place] [address], [address] [place], [place] [phone] Orthopaedic Surgery 01/27/24
--- OUTSIDE RECORDS SUMMARY | 2024-11-23 19:21 | XMS_ITS | Encounter Summary ---
Author Organization [facility] Address [address] [place] [address] 7 [place] [address] Care Team Providers Care Artificial Limb Maker Name Role Phone Sanjuana Anderson MD Primary Care Provider +1- [phone] Encounter Details Date Type Department Care Team [...] on filedocumented in this encounter Care Teams Artificial Limb Maker Relationship Specialty Start Date End Date Sanjuana Anderson MD [address] [place] [address] PCP - General Family Medicine 03/09/18 Wen Gan MD [facility] [address] [place] [address] Hematology and Oncology 01/27/24 Ebony Lal PsyD [facility] [address] [place] [address] Psychiatry 01/27/24 Shania Xiao MD [address] [place] [address], [place] [address] Orthopaedic Surgery 01/27/24 documented as of this encounter
--- OUTSIDE RECORDS SUMMARY | 2024-11-23 19:21 | XMS_ITS | Encounter Summary ---
Author Organization [facility] Address [address] [place] [address] 7t [place] [address] Care Team Providers Care Mirror Inspector Name Role Phone Sanjuana Anderson MD Primary Care Provider +1- [phone] Encounter Details Date Type Department Care Team (Late st Contact Info) Description 04/16/2022 Abstract [facility] [address] [place] [address] Sanjuana Anderson MD [address] [place] [address] Social History Tobacco Use Types Packs/Day Years [...] documented as of this encounter Care Teams Mirror Inspector Relationship Specialty Start Date End Date Sanjuana Anderson MD [address] [place] [address] PCP - General Family Medicine 03/09/18 Wen Gan MD [facility] [address] [place] [address] Hematology and Oncology 01/27/24 Ebony Lal PsyD [facility] [address] [place] [address] Psychiatry 01/27/24 Shania Xiao MD [address] [place] [address] [address], [address] [place], [place] [phone] Orthopaedic Surgery 01/27/24 documented as of this encounter
--- OUTSIDE RECORDS SUMMARY | 2024-11-23 19:21 | XMS_ITS | Encounter Summary ---
Author Organization [facility] Address [address] [place] [address] 7t [place] [address] Care Team Providers Care Environmental Services Associate Name Role Phone Sanjuana Anderson MD Primary Care Provider +1- [phone] Reason for Visit * Reason Onset Date Comments triage 07/09/2022 Encounter Details Date Type Department Care Team ([facility] st Contact Info) Description 07/09/2022 Telephone [facility] [address] [place] [address] Sanjuana Anderson MD [address] [place], [place] [phone] triage Social History Tobacco Use Types Packs/Day [...] 07/09/2022 1:11 PM EDT Triage call with Grannis Intepreter ID [id number] Pt reports since yesterday started with left [...] denies numbness, cough. Advised to come to [facility] today to be seen and Pt [...] acuity questions The caller accepted this outcome Yi speaker documented in this encounter Plan of Treatment Not on file documented as of this encounter Visit Diagnoses Not on filedocumented in this encounter Additional Health Concerns Assessment Noted Time PHQ-9 Depression Total Score: 5 04/11/19 23 10:29 AM EST documented as of this encounter Care Teams Environmental Services Associate Relationship Specialty Start Date End Date Sanjuana Anderson MD [address] [place] [address] PCP - General Family Medicine 03/09/18 Wen Gan MD [facility] [address] [address] Hematology and Oncology 01/27/24 Ebony Lal PsyD [facility] [address] [place] [address] Psychiatry 01/27/24 Shania Xiao MD [address] [place] [address], [address] [place], [place] [phone] Orthopaedic Surgery 01/27/24 documented as of this encounter
--- OUTSIDE RECORDS SUMMARY | 2024-11-23 19:21 | XMS_ITS | Encounter Summary ---
Author Organization [employer] Address [address] [facility] 7t [place] [address] Care Team Providers Care Trucking Supervisor Name Role Phone Sanjuana Anderson MD Primary Care Provider +1- [phone] Encounter Details Date Type Department Care Team ([facility] st Contact Info) Description 11/23/2024 Telephone [facility] MED & PEDS [address] [place], [place] [phone] Sapphire Kunz MD [address] [place] [address] Social History Tobacco Use Types Packs/Day Years [...] encounter Miscellaneous Notes * Telephone Encounter - Sapphire Kunz MD - 11/23/2024 5:57 PM EDT Was paged by answering service at 5:23 pm due to [facility] lab calling critical result of Hgb of 7.2 Patient has past hx of sickle cell dz and sees terrazzo roller at [facility]. Next visit 12-01-24 at 1:45 pm Labs ordered as her dose of hydroxyurea was changed by heme recently. Previous hgb 2 weeks ago was 8.6 Called patient via doximity and patient states feels well.Denies pain, dizziness, SOB,etc.. Denies bleeding and states eats healthy. Agrees for me [facility] advised to call them to make sure they saw results if they dont contact her by noon time.. Aware can go to ER at any time as well but prefers to hold off for now. Note will be forwarded to PCP . documented in this encounter Plan of Treatment Not on file documented as of this encounter Visit Diagnoses Not on filedocumented in this encounter Additional Health Concerns Assessment Noted Time PHQ-9 Depression Total Score: 11 024 3:25 PM EST documented as of this encounter Care Teams Trucking Supervisor Relationship Specialty Start Date End Date Sanjuana Anderson MD [address] [place] [address] PCP - General Family Medicine 03/09/18 Wen Gan MD [facility] [address] [place] [address] Hematology and Oncology 01/27/24 Ebony Lal PsyD [facility] [address] [place] [address] Psychiatry 01/27/24 Shania Xiao MD [address] [place] [address], [address] [place], [place] [phone] Orthopaedic Surgery 01/27/24 documented as of this encounter
--- OUTSIDE RECORDS SUMMARY | 2024-11-23 19:21 | XMS_ITS | Encounter Summary ---
Author Organization [employer] Address [address] [facility] 7t [place] [address] Care Team Providers Care Ash Handler Name Role Phone Sanjuana Anderson MD Primary Care Provider +1- [phone] Encounter Details Date Type Department Care Team (Late st Contact Info) Description 11/23/2024 Orders Only [facility] MEDICINE [address] [place], [place] [phone] Sanjuana Anderson MD [address] [place] [address] Sickle cell 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) (Primary Dx) Social History Tobacco [...] Procedure Name Priority Date/Time Associated Diagnosis Comments CBC Routine 11/23/2024 4:49 PM EDT Sickle cell 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) BASIC METABOLIC PANEL Routine 11/23/2024 4:49 PM EDT Sickle cell 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) documented in this encounter Results * (ABNORMAL) Basic Metabolic Panel (11/23/2024 4:49 PM EDT) Sodium 139 135 - 145 mmol/L [facility] Potassium 3.9 3.3 - 5.1 mmol/L [facility] Chloride 109(H) 96 - 108 mmol/L [facility] Carbon Dioxide 25 22 - 29 mmol/L [facility] Anion Gap 9(L) 12 - 20 [facility] Urea Nitrogen (BUN) 11 9 - 16 mg/dL [facility] Creatinine, Serum 0.64 0.5 - 1.4 mg/dL [facility] Estimated Glomerular Filt Rate >60 [facility] Comment:Chronic Kidney Disea se: Estimated GFR < 60 mL/min/1.99o1Fixtsk Kidney Disease: Estimated GFR < 15 mL/min/1.73m2 Glucose 93 60 - 115 mg/dL [facility] Calcium 8.8 8.4 - 10.2 mg/dL [facility] Blood Venous blood specimen / Unknown 11/23/2024 4:49 PM EDT 11/23/2024 4:49 PM EDT us Sanjuana Anderson MD LAB BLOOD ORDERABLES Final Result [facility] [address] [place] [address] [phone] * (ABNORMAL) CBC (11/23/2024 4:49 PM EDT) White Blood Count 4.5(L) 4.8 - 10.8 X10*3/uL [facility] Red Blood Count 1.91(L) 4.20 - 5.50 X10*6/uL [facility] Hemoglobin 7.2(L) 12.0 - 16.0 g/dl [facility] Hematocrit 20.0(LL) 37.0 - 47.0 % [facility] Comment:RESULTS OF HCT HARVEY D TO AND READ BACK BY DR ALEX CHENEY 11/23/24 AT 1724 BY GRADY. Mean Corpuscular Volume 104.7(H) 80.0 - 98.0 fL [facility] Mean Corpuscular Hemoglobin 37.7(H) 27.0 - 33.0 pg [facility] Mean Corpuscular HGB Conc 36.0(H) 31.0 - 35.0 g/dl [facility] Red Cell Distribution Width 18.9(H) 11.0 - 16.0 % [facility] Platelet Count 229 160 - 400 X10*3/uL [facility] Mean Platelet Volume 10.3 9.4 - 12.3 fL [facility] NRBC Pct Auto 50.2(H) 0.0 - 0.2 /100WBC [facility] NRBC Abs Auto 2.280(H) 0.0 - 0.012 X10*3/uL [facility] Blood Venous blood specimen / Unknown 11/23/2024 4:49 PM EDT 11/23/2024 4:49 PM EDT Sanjuana Anderson MD LAB BLOOD ORDERABLES Final Result [facility] [address] [place] [address] [phone] documented in this encounter Visit Diagnoses Diagnosis Sickle cell 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 documented in this encounter Additional Health Concerns Assessment Noted Time PHQ-9 Depression Total Score: 11 024 3:25 PM EST documented as of this encounter Care Teams Ash Handler Relationship Specialty Start Date End Date Sanjuana Anderson MD [address] [place] [address] PCP - General Family Medicine 03/09/18 Wen Gan MD [facility] [address] [place] [phone] Hematology and Oncology 01/27/24 Ebony Lal PsyD [facility] [address] [place] [address] Psychiatry 01/27/24 Shania Xiao MD [address] [place] [address], [place] [address] Orthopaedic Surgery 01/27/24 documented as of this encounter
== END 2024-11-23 16:41 | disposition home or self-care (01) ==
LOC: HO.LAB 16:40
PROVIDERS: PCP Family Medicine; Visit Provider Family Medicine
DX: D57.1 Sickle-cell disease without crisis (principal)
CPT/HCPCS: 36415; 80048; 85027

== ENCOUNTER 2024-11-28 18:40 | Emergency (ER) | payer MEDICAID, SELFPAY ==
--- NOTE | 2024-11-28 19:13 | ED.GENADULT ---
HPI - General Adult General Chief complaint: Recheck/Abnormal Lab/Rx Stated complaint: ? need for blood infusion Time Seen by Provider: 11/28/24 21:01 Source: patient, old records reviewed and spanish interpreter Mode of arrival: ambulatory Limitations: language barrier History of Present Illness ED Provider: Dr. Melonie Garcia HPI narrative: 44-year-old female with a history of sickle cell anemia presenting with low hemoglobin levels. Patient states that she had her blood drawn on 11/23/2024 and was told to come to the hospital for blood transfusion when her hemoglobin level was noted to be in the 7 range. Patient states that she has had multiple transfusions in the past, normally when her hemoglobin drops around 6. Describes some shortness of breath on exertion and general fatigue but otherwise denies fever, chest pain, joint pain, vomiting, diarrhea, bleeding. Denies cough. No sputum production. No skin rashes. Related Data Home Medications ?Medication ?Instructions ?Recorded ?Confirmed calcium 600 mg capsule 600 mg PO DAILY 06/01/20 10/14/22 fluticasone propionate 50 1 spray intranasal BID 06/01/20 10/14/22 mcg/actuation nasal spray,suspension folic acid 5 mg capsule 5 mg PO QWEEK 06/01/20 10/14/22 hydroxyurea (sickle cell) 400 mg 400 mg PO DAILY 06/01/20 10/14/22 capsule loratadine 10 mg tablet 10 mg PO DAILY 06/01/20 10/14/22 morphine 15 mg immediate release 15 mg PO Q4H PRN Pain 06/01/20 10/14/22 tablet oxycodone 10 mg tablet 10 mg PO BID PRN Pain 06/01/20 10/14/22 epinephrine 0.3 mg/0.3 mL 0.3 mg IM Q4H PRN Allergic Reaction 06/10/21 10/14/22 injection, auto-injector (EpiPen) Previous Rx's ?Medication ?Instructions ?Recorded nirmatrelvir 300 mg (150 mg See Rx Instructions PO .COMPLEX 11/17/21 x2)-ritonavir 100 mg tablet,dose #30 ea pack (Paxlovid) Allergies Allergy/AdvReac Type Severity Reaction Status Date / Time ibuprofen (IBUPROFEN) Allergy Intermediate HIVES, Verified 11/28/24 19:16 FACIAL SWELLING ketorolac (From TORADOL) Allergy Intermediate SWELLING Verified 11/28/24 19:16 Review of Systems Review of Systems: as per HPI, full review of systems performed and negative but for the above mentioned pertinent positives and negatives. [facility] Past Medical History Medical History Hx of osteomyelitis Surgical History H/O adenoidectomy History of surgery on left wrist Family History Family History Mother Hx of breast cancer Social History Social History Household Members: None Housing: House Are you a primary post acute care nurse practitioner to a significant other at home: No Do you presently have visiting nurse or other home 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 (customer development manager) Alcohol intake: never Patient Tobacco Use Status: Never used Tobacco Smoked in Last 30 Days: No Use of substances other than those prescribed or required for medical reasons: No Advance Directives: No Advance Directives Information Provided: No Do you have a plan to hurt others: No Plan service: No Current occupational status: unemployed Physical Exam ED Exam Exam: GENERAL: Chronically ill-Appearing, appears uncomfortable. SKIN: Pale skin color for ethnicity, warm, dry, no rashes noted. HEENT: Normocephalic, atraumatic, no stridor, dry mucous membranes, dentition intact, EOMI, PERRLA. NECK: Soft, supple, full ROM, midline structures nontender, no step-offs, no deformities, no lymphadenopathy. CHEST: Heart regular rhythm, no murmurs, symmetric chest rise and fall. PULMONARY: Clear to auscultation bilaterally, diminished at the bases, no labored breathing, no wheezes/rhales/rhonchi. ABDOMINAL: Soft, nondistended, nontender, positive bowel sounds in all quadrants. : Deferred. MUSCULOSKELETAL: Normal tone, full range of motion, no deformities, no peripheral edema. NEURO: Alert and oriented x3, CN II through XII intact, equal strength and sensation bilateral upper and lower extremities, no focal neurologic deficits. PSYCHIATRIC: Flat affect, fluid speech, good eye contact and appropriate demeanor. Vital Signs: Vital Signs - 24 hr 11/28/24 19:14 11/28/24 19:51 11/28/24 23:18 Temperature 98.4 F 98.3 F Pulse Rate 93 83 85 Respiratory Rate 14 16 18 Blood Pressure 102/61 109/68 98/59 L Pulse Oximetry 99 100 Oxygen Delivery Method Room Air Room Air 11/28/24 23:26 11/28/24 23:37 11/28/24 23:42 Temperature 98.3 F 98.3 F 98.3 F Pulse Rate 82 82 87 Respiratory Rate 16 16 20 Blood Pressure 108/72 108/72 107/67 Pulse Oximetry 100 Oxygen Delivery Method Room Air 11/29/24 02:27 11/29/24 02:44 11/29/24 02:45 Temperature 97.8 F 97.8 F 97.8 F Pulse Rate 72 76 76 Respiratory Rate 16 18 18 Blood Pressure 102/61 93/64 93/64 Pulse Oximetry Oxygen Delivery Method BMI result Body Mass Index 20.1 Course Course Course Narrative: This is a Rapid Medical Examination (RME) performed by Marita Amin PA-C in triage. Full HPI, ROS, assessment and treatment plan per primary provider in the Main ED. Hx: 44 yo F hx sickle cell here for eval of low blood levels . had routine blood work 6 days ago - saw that her H&H is low, contacted her provider however has not received a call back. hx of blood transfusion in 2011. would like her h&h rechecked. reports fatigue and BALDWIN. no chest pain. Plan: repeat blood work & type and screen Medical Decision Making Medical Decision Making MDM Narrative: 44-year-old female with a history of sickle cell anemia presenting with low hemoglobin levels, dyspnea on exertion. Differential diagnosis includes lab error, sickle cell crisis, symptomatic anemia, pneumonia, electrolyte abnormality, renal dysfunction, thrombocytopenia, among many others. Extensive search into the patient's chart reveals history of anemia, as low as 7.2 this week. Given her symptomatic anemia and relatively low hemoglobin level compared to her baseline of 10, we will transfuse 1 unit PRBCs. Reticulocyte count added. Patient remains hemodynamically stable with normal oxygen levels on room air. 2:53 AM 11/29/2024 (Dr. Melonie Garcia, D.O.) blood transfusion completed. Patient remains hemodynamically stable, resting comfortably and feeling well. Using shared decision making, plan for discharge home to follow-up with primary care and/or specialist. Patient understands and agrees with plan for discharge. Discharged home in stable condition. Differential Diagnosis Differential Diagnoses: The differential diagnosis associated with the presentation includes (as above) Admission/Observation Consideration of admission/observation: Escalation of care including admission/observation considered Lab Data MDM Lab Attestation statement: I reviewed the patient's lab results. 11/28/24 19:50 11/28/24 19:50 Labs: Lab Results 11/28/24 11/28/24 11/28/24 Range/Units 19:50 20:55 22:36 WBC 4.7 L (4.8-10.8) X10*3/uL RBC 2.16 L (4.20-5.50) X10*6/uL Hgb 8.4 L (12.0-16.0) g/dl Hct 23.5 L (37.0-47.0) % MCV 108.8 H (80.0-98.0) fL MCH 38.9 H (27.0-33.0) pg MCHC 35.7 H (31.0-35.0) g/dl RDW 19.7 H (11.0-16.0) % Plt Count 244 (160-400) X10*3/uL MPV 10.8 (9.4-12.3) fL Immature Gran % (Auto) 0.2 (0.0-0.4) % Neut % (Auto) 21.1 L (45-73) % Lymph % (Auto) 68.4 H (20-40) % [place] % (Auto) 9.7 (2-11) % Eos % (Auto) 0.4 (0-4) % Baso % (Auto) 0.2 (0-2) % Lymph # (Auto) 3.2 (1.2-4.9) X10*3/uL [place] # (Auto) 0.5 (0.1-1.2) X10*3/uL Eos # (Auto) 0.0 (0.0-0.4) X10*3/uL Baso # (Auto) 0.0 (0.0-0.2) X10*3/uL Abs Immat Gran (auto) 0.01 (0.00-0.03) X10*3/uL Absolute Neuts (auto) 1.0 L (2.0-8.3) x10*3/uL Absolute Nucleated RBC 3.820 H (0.0-0.012) X10*3/uL Nucleated RBC % (auto) 80.6 H (0.0-0.2) /100WBC Smear Tech's Comments VERIFIED Absolute Retic Cancelled 0.111 H Percent Retic Cancelled 5.7 H Immature Retic Fraction Cancelled 43.7 H Retic Hgb Equivalent Cancelled 35.5 H Sodium 141 (135-145) mmol/L Potassium 4.1 (3.3-5.1) mmol/L Chloride 110 H (96-108) mmol/L Carbon Dioxide 23 (22-29) mmol/L Anion Gap 12 (12-20) BUN 12 (9-16) mg/dL Creatinine 0.62 (0.5-1.4) mg/dL Estim Creat Clear Calc 95.3 Estimated GFR > 60 Random Glucose 85 (60-115) mg/dL Calcium 8.9 (8.4-10.2) mg/dL Magnesium 2.3 (1.6-2.6) mg/dL Total Bilirubin 0.7 (0.0-1.0) mg/dL AST 45 H (5-31) U/L ALT 28 (0-31) U/L Alkaline Phosphatase 108 (39-117) U/L Total Protein 8.8 H (6.5-8.0) g/dL Albumin 4.5 (3.5-5.0) g/dL Blood Type O Positive Antibody Screen NEGATIVE Crossmatch See Detail Crossmatch (AHG) See Detail External Record Review External record reviewed: Inpatient record, Office record and Prior outpatient labs Chronic Conditions Patient?s care impacted by: Other (Sickle cell anemia) Discharge Plan Discharge Clinical Impression: Symptomatic anemia, Sickle cell disease Patient Disposition: Home, Self-Care Instructions: Blood Transfusion Discharge Instructions Additional Instructions: Follow-up with your hod carrier as soon as possible. Return to the ER with any new or worsening symptoms including: Worsening shortness of breath, chest pain, fevers greater than 100?, severe joint pain, any new symptom that concerns you. Call 911 with any medical emergency. Prescriptions: No Action calcium 600 mg Capsule 600 mg PO DAILY folic acid 5 mg Capsule 5 mg PO QWEEK morphine 15 mg Tablet 15 mg PO Q4H PRN (Reason: Pain) fluticasone propionate 50 mcg/actuation [place],Suspension 1 spray INTRANASAL BID hydroxyurea (sickle cell) 400 mg Capsule 400 mg PO DAILY loratadine 10 mg Tablet 10 mg PO DAILY oxycodone 10 mg Tablet 10 mg PO BID PRN (Reason: Pain) epinephrine [EpiPen] 0.3 mg/0.3 mL Auto-Injector 0.3 mg IM Q4H PRN (Reason: Allergic Reaction) Paxlovid 300 mg (150 mg x 2)-100 mg tablets,dose pack See Rx Instructions .ROUTE .COMPLEX Qty: 30 0RF Rx Instructions: take TWO 150 mg tablets of nirmatrelvir with ONE 100 mg tablet of ritonavir twice daily for 5 days Print Language: Burkinan
[2024-11-28 19:14] VITALS: BP 102/61; PULSE 93; RESP 14; TEMP 36.9; O2SAT 99; BMI 20.1
--- NOTE | 2024-11-28 19:18 | PC.NURSE ---
conveyor line battery charger made aware of CC. pt appears well, vitals stable. awaiting bed availability/lab draw.
--- OUTSIDE RECORDS SUMMARY | 2024-11-28 19:39 | XMS_ITS | Encounter Summary ---
Author Organization [employer] Address [address] [facility] 7t [place] [address] Care Team Providers Care Physics Technical Officer Name Role Phone Sanjuana Anderson MD Primary Care Provider +1- [phone] Reason for Visit * Reason Onset Date Comments Results 11/23/2024 Encounter Details Date Type Department Care Team ([facility] st Contact Info) Description 11/23/2024 Telephone [facility] MEDICINE [address] [place], [place] [phone] Sanjuana Anderson MD [address] [place], [place] [phone] Results Social History Tobacco Use Types Packs/Day Years [...] Telephone Encounter - Barbara Garner RN - 11/24/2024 10:30 AM EDT Faxed completed labs from 11/23/[address] Gan at [phone]. Confirmation received. * Telephone Encounter - Elizabeth Ureña RN - 11/23/2024 3:32 PM EDT TC placed to the pt with S director digital advertising #[id number] to inform per PCP that the pt will need to get BasicP and CBC redrawn again as the previous labs done on 11/03/2024 were drawn too soon. The pt was advised to have them drawn at [facility] as PCP has placed new orders. Once they are resulted they will be faxed to Wen Gan MD [address] [place] [phone] Phone: tel: fax: Pt agreeable to all these instructions and will present to the lab before the end of this week * Telephone Encounter - Sanjuana Anderson MD - 11/23/2024 3:18 PM EDT Please ask Pina to get labs drawn, previous CBC was done too soon.Please fax results to slag motor operator in [place]. See note from 10/19/24 for the physician information. Thank you. documented in this encounter Plan of Treatment Not on file documented as of this encounter Visit Diagnoses Not on filedocumented in this encounter Additional Health Concerns Assessment Noted Time PHQ-9 Depression Total Score: 11 024 3:25 PM EST documented as of this encounter Care Teams Physics Technical Officer Relationship Specialty Start Date End Date Sanjuana Anderson MD [address] [place] [address] PCP - General Family Medicine 03/09/18 Wen Gan MD [facility] [address] [place] [phone] Hematology and Oncology 01/27/24 Ebony Lal PsyD [facility] Psych [facility] [address] [place] [phone] Psychiatry 01/27/24 Shania Xiao MD [address] [place] [address], [place] [address] Orthopaedic Surgery 01/27/24 documented as of this encounter
--- OUTSIDE RECORDS SUMMARY | 2024-11-28 19:39 | XMS_ITS | Encounter Summary ---
Author Organization [employer] Address [address] [facility] 7t [place] [address] Care Team Providers Care Sales & Service Associate Name Role Phone Sanjuana Anderson MD Primary Care Provider +1- [phone] Encounter Details Date Type Department Care Team (Late st Contact Info) Description 05/31/2024 Orders Only [facility] MEDICINE [address] [place], [place] [phone] Sanjuana Anderson MD [address] [place] [address] Sickle cell anemia with crisis (CMS/HCC) (Primary [...] documented as of this encounter Care Teams Sales & Service Associate Relationship Specialty Start Date End Date Sanjuana Anderson MD [address] [place] [address] PCP - General Family Medicine 03/09/18 Wen Gan MD [facility] On[facility] [address] [place] [address] Hematology and Oncology 01/27/24 Ebony Lal PsyD [facility] [address] [place] [address] Psychiatry 01/27/24 Shania Xiao MD [address] [address], [address] [place], [place] [phone] Orthopaedic Surgery 01/27/24 documented as of this encounter
--- OUTSIDE RECORDS SUMMARY | 2024-11-28 19:39 | XMS_ITS | Encounter Summary ---
Author Organization [facility] Address [address] [place] [address] 7 [place] [address] Care Team Providers Care Production Statistical Clerk Name Role Phone Sanjuana Anderson MD Primary Care Provider +1- [phone] Encounter Details Date Type Department Care Team [...] on filedocumented in this encounter Care Teams Production Statistical Clerk Relationship Specialty Start Date End Date Sanjuana Anderson MD [address] [place] [address] PCP - General Family Medicine 03/09/18 Wen Gan MD [facility] [address] [place] [address] Hematology and Oncology 01/27/24 Ebony Lal PsyD [facility] [address] [place] [address] Psychiatry 01/27/24 Shania Xiao MD [address] [place] [address], [place] [address] Orthopaedic Surgery 01/27/24 documented as of this encounter
--- OUTSIDE RECORDS SUMMARY | 2024-11-28 19:39 | XMS_ITS | Encounter Summary ---
Author Organization [employer] Address [address] [facility] 7t [place] [address] Care Team Providers Care Local Company Flatbed Truck Driver Name Role Phone Sanjuana Anderson MD Primary Care Provider +1- [phone] Reason for Visit * Reason Onset Date Comments PT1 04/19/2024 Encounter Details Date Type Department Care Team ([facility] Contact Info) Description 04/19/2024 Telephone [facility] MEDICINE [address] [place] [address] Sanjuana Anderson MD [address] [place] [address] PT1 Social History Tobacco Use Types Packs/Day [...] Y/N: Yes Provider name or facility name: [facility] [address], [place] [address] Escort needed: Y/N: Yes Do you have [...] documented as of this encounter Care Teams Local Company Flatbed Truck Driver Relationship Specialty Start Date End Date Sanjuana Anderson MD [address] [place] [address] PCP - General Family Medicine 03/09/18 Wen Gan MD [facility] [address] [place] [phone] Hematology and Oncology 01/27/24 Ebony Lal PsyD [facility] [facility] [place] [address] Psychiatry 01/27/24 Shania Xiao MD [address] [place] [address], [place] [address] Orthopaedic Surgery 01/27/24 documented as of this encounter
--- OUTSIDE RECORDS SUMMARY | 2024-11-28 19:39 | XMS_ITS | Encounter Summary ---
Author Organization [employer] Address [address] [facility] 7t [place] [address] Care Team Providers Care Student Affairs Vice President Name Role Phone Sanjuana Anderson MD Primary Care Provider +1- [phone] Encounter Details Date Type Department Care Team ([facility] st Contact Info) Description 11/23/2024 Telephone [facility] MED & PEDS [address] [place], [place] [phone] Sapphire Kunz MD [address] [place] [address] Social History Tobacco Use Types Packs/Day Years [...] answering service at 5:23 pm due to [facility] lab calling critical result of Hgb of 7.2 Patient has past hx of sickle cell dz and sees economics instructor at [facility]. Next visit 12-01-24 at 1:45 pm Labs ordered as her dose of hydroxyurea was changed by heme recently. Previous hgb 2 weeks ago was 8.6 Called patient via doximity and patient states feels well.Denies pain, dizziness, SOB,etc.. Denies bleeding and states eats healthy. Agrees for me to fax results [facility] the [facility] and advised to call them to make [...] documented as of this encounter Care Teams Student Affairs Vice President Relationship Specialty Start Date End Date Sanjuana Anderson MD [address] [place] [address] PCP - General Family Medicine 03/09/18 Wen Gan MD [facility] [address] [place] [address] Hematology and Oncology 01/27/24 Ebony Lal PsyD [facility] Krystina [facility] [address] [place] [address] Psychiatry 01/27/24 Shania Xiao MD [address] [place] [address], [address] [place], [place] [address] Orthopaedic Surgery 01/27/24 documented as of this encounter
--- OUTSIDE RECORDS SUMMARY | 2024-11-28 19:39 | XMS_ITS | Clinical Summary ---
Author Organization [employer] Address [address] [place] [address] 7t [place] [address] Care Team Providers Care Licensed Reactor Operator Name Role Phone Sanjuana Anderson MD Primary Care Provider +1- [phone] Allergies Active Allergy Reactions Criticality Noted Date [...] - [facility] [place] [facility] -Health care proxy filsed 05/06/23 Assessment & Plan (01/27/2024 3:41 PM EST): -next physical exam due after 01/27/24 - [facility] [place] [facility] -Health care proxy filsed 05/06/23 Assessment [...] [facility] [place] Followed by [facility] as well as orthopedics in [place]. Pain meds to be prescribed by me including oxycodone 10mg bid prn which she uses sparingly and acetaminophen with codeine which she uses sparingly for moderate pain. She declined refill today. -continue Hydroxyurea and folic acid. -Followed with Dr. Bajwa and [facility] -Pt had right shoulder hemiarthroplasty surgery 09/18/2022 and is doing well. -seen by hematology in [place] 07/05/24, follow up 3 months - Maintain hydration throughout the day - Discussed hydrea adherence - Continue chronic medications as prescribed -seen 10/17/[address] Wen Gan at [phone]. She wanted to give Dr Anderson an update after recent 10/17/24 visit with the pt. - increased hydroxyurea to 1500mg daily (3 tabs/day). - would like for PCP to order CMP and CBC w/ diff for pt to complete in 1 month to see how she is tolerating it. (Requesting this from PCP because pt lives in [place]). - She requests fax with lab results to be sent to [facility] in 1 month for her to review to see how pt is tolerating increased dose - she will recheck hemoglobin electrophoresis at pt's next hematology appt in 3 months Assessment & Plan (01/27/2024 3:40 PM EST): Jonathan. Continue with oncologist Dr Bajwa and [facility] [place]. Followed by [facility] as well as orthopedics in [place]. Pain meds to be prescribed by me including oxycodone 10mg bid prn which she uses sparingly and acetaminophen with codeine which she uses sparingly for moderate pain. She declined refill today. -continue Hydroxyurea and folic acid. -Followed with Dr. Bajwa and [facility] -Pt had right shoulder hemiarthroplasty surgery 09/18/2022 and is doing well. Assessment & Plan (05/06/2023 3:42 PM EST): Jonathan. Continue with oncologist Dr Bajwa and [facility] [place]. Followed by [facility] as well as orthopedics in [place]. Pain meds to be prescribed by me including oxycodone 10mg bid prn which she uses sparingly and acetaminophen with codeine which she uses sparingly for moderate pain. She declined refill today. -continue Hydroxyurea and folic acid. -Followed with Dr. Bajwa and [facility] -Pt had right shoulder hemiarthroplasty surgery 09/18/2022 and is doing well. Assessment & Plan (11/03/2022 9:45 AM EDT): Stable. Continue with oncologist Dr Bajwa and [place] [facility] [place]. Followed by [facility] as well as orthopedics in [place]. Pain meds to be prescribed by me including oxycodone 10mg bid prn which she uses sparingly and acetaminophen with codeine which she uses sparingly for moderate pain. She declined refill today. -continue Hydroxyurea and folic acid. -Followed with Dr. 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 Continue with oncologist Dr Bajwa and [place] [facility] [place]. Followed by [facility] as well as orthopedics in [place]. Pain meds to be prescribed by me including oxycodone 10mg bid prn which she uses sparingly and acetaminophen with codeine which she uses sparingly for moderate pain. She declined refill today. -continue Hydroxyurea and folic acid. -Followed with Dr. Bajwa and [facility] -she plans to have surgery of her [...] Ebony Lal PsyD Licensed Clinical Psychologist in [place] through sickle cell clinic, note from 10/01/23 reviewed. Assessment & Plan (05/06/2023 3:40 PM EST): -Followed by Ebony Lal PsyD Licensed Clinical Psychologist in [place] through sickle cell clinic Encounters Date Type Department Care Team Description 11/24/2024 Results Follow-Up [facility] [address] [place] [address] Barbara Garner RN CBC, Basic Metabolic Panel, Pathologist Review - CBC 11/23/2024 Telephone [facility] P[facility] [address] [place], [place] [phone] Alex Kunz MD 11/23/2024 Telephone [facility] [address] [place] [address] Sanjuana Anderson MD Results 11/23/2024 Orders Only [facility] [address] [place] [phone] Sanjuana Anderson MD Sickle cell disease without crisis ([facility]) (Primary Dx) 11/09/[address] [address] Sanjuana Anderson MD Referral; Referral-Ortho 11/03/2024 Results Follow-Up [facility] [address] [place] [address] Sanjuana Anderson MD CBC auto differential, Comprehensive Metabolic Panel 11/03/2024 Orders Only [facility] [address] [place] [phone] Sanjuana Anderson MD 10/31/2024 7:00 PM EDT [facility] [address] [address] July [place], [place] Popliteal pain (Primary Dx) 10/31/2024 Travel 10/29/[address] [address] Sanjuana Anderson MD Aseptic necrosis of head of humerus, unspecified laterality ([facility]) 10/25/2024 Telephone [facility] [address] [place] [phone] Sanjuana Anderson MD Referral 10/20/2024 Orders Only [facility] [address] [place] [address] Sanjuana Anderson MD Sickle cell anemia with crisis ([facility]) (Primary Dx) 10/19/2024 Telephone [facility] [address] [place] [phone] Sanjuana Anderson MD Medication Question; Lab Orders [...] Procedure Name Priority Date/Time Associated Diagnosis Comments PATHOLOGIST REVIEW - CBC Routine 11/23/2024 4:49 PM EDT Sickle [...] Recently Relevant to Health Maintenance Results * Pathologist Review - CBC (11/23/2024 4:49 PM EDT) Pathologist Review - CBC SEE NOTE [facility] Comment:- Anemia with sickle cells, target cells, macrocytosis,[place] bodies, anisocytosis and marked increase innucleated RBC's, features in keeping with patient's knownsickle cell anemia. Marrow stress is noted.- Leukopenia: consider infection vs drug/medication effectvs other etiologies.Reviewed by Maya Bland MD 11/23/2024 4:49 PM EDT 11/23/2024 4:49 PM EDT us Sanjuana Anderson MD LAB BLOOD ORDERABLES Final Result [facility] [address] [place] [address] [phone] * (ABNORMAL) CBC (11/23/2024 4:49 PM EDT) White Blood Count 4.5(L) 4.8 - 10.8 X10*3/uL [facility] Red Blood Count 1.91(L) 4.20 - 5.50 X10*6/uL [facility] Hemoglobin 7.2(L) 12.0 - 16.0 g/dl [facility] Hematocrit 20.0(LL) 37.0 - 47.0 % [facility] Comment:RESULTS OF HCT HARVEY D TO AND READ BACK BY DR ALEX CHENEY 11/23/24 AT 1724 BY GRADY. Mean Corpuscular Volume 104.7(H) 80.0 - 98.0 fL [facility] Mean Corpuscular Hemoglobin 37.7(H) 27.0 - 33.0 pg [facility] Mean Corpuscular HGB Conc 36.0(H) 31.0 - 35.0 g/dl [facility] Red Cell Distribution Width 18.9(H) 11.0 - 16.0 % [facility] Platelet Count 229 160 - 400 X10*3/uL [facility] Mean Platelet Volume 10.3 9.4 - 12.3 fL [facility] NRBC Pct Auto 50.2(H) 0.0 - 0.2 /100WBC [facility] NRBC Abs Auto 2.280(H) 0.0 - 0.012 X10*3/uL [facility] Blood Venous blood specimen / Unknown 11/23/2024 4:49 PM EDT 11/23/2024 4:49 PM EDT Sanjuana Anderson MD LAB BLOOD ORDERABLES Final Result Performing Organization Address [facility]/ZIP Co de Phone Number [facility] [address] [place] [phone] * (ABNORMAL) Basic Metabolic Panel (11/23/2024 4:49 PM EDT) Sodium 139 135 - 145 mmol/L [facility] Potassium 3.9 3.3 - 5.1 mmol/L [facility] Chloride 109(H) 96 - 108 mmol/L [facility] Carbon Dioxide 25 22 - 29 mmol/L [facility] Anion Gap 9(L) 12 - 20 [facility] Urea Nitrogen (BUN) 11 9 - 16 mg/dL [facility] Creatinine, Serum 0.64 0.5 - 1.4 mg/dL [facility] Estimated Glomerular Filt Rate >60 [facility] Comment:Chronic Kidney Disea se: Estimated GFR < 60 mL/min/1.76m5Pmimdb Kidney Disease: Estimated GFR < 15 mL/min/1.73m2 Glucose 93 60 - 115 mg/dL [facility] Calcium 8.8 8.4 - 10.2 mg/dL [facility] Blood Venous blood specimen / Unknown 11/23/2024 4:49 PM EDT 11/23/2024 4:49 PM EDT Sanjuana Anderson MD LAB BLOOD ORDERABLES Final Result Performing Organization Address City/[facility]/ZIP Co de Phone Number [facility] [address] [place] [phone] [phone] * Slide Review (11/03/2024 12:19 PM EDT) Slide Review VERIFIED [facility] 11/03/2024 12:1 9 PM EDT 11/03/2024 12:19 PM EDT us Sanjuana Anderson MD LAB BLOOD ORDERABLES Final Result [facility] [address] [place] [phone] [phone] * (ABNORMAL) CBC auto differential (11/03/2024 12:19 PM EDT) White Blood Count 3.8(L) 4.8 - 10.8 X10*3/uL [facility] Red Blood Count 2.42(L) 4.20 - 5.50 X10*6/uL [facility] Hemoglobin 8.6(L) 12.0 - 16.0 g/dl [facility] Hematocrit 24.7(L) 37.0 - 47.0 % [facility] Mean Corpuscular Volume 102.1(H) 80.0 - 98.0 fL [facility] Mean Corpuscular Hemoglobin 35.5(H) 27.0 - 33.0 pg [facility] Mean Corpuscular HGB Conc 34.8 31.0 - 35.0 g/dl [facility] Red Cell Distribution Width 16.8(H) 11.0 - 16.0 % [facility] Platelet Count 202 160 - 400 X10*3/uL [facility] Mean Platelet Volume 11.0 9.4 - 12.3 fL [facility] Neutrophils Percent Auto 33.2(L) 45 - 73 % [facility] Imm Gran Pct Auto 0.5(H) 0.0 - 0.4 % [facility] Lymphocytes Percent Auto 52.7(H) 20 - 40 % [facility] Monocytes Percent Auto 12.0(H) 2 - 11 % [facility] Eosinophils Percent Auto 1.3 0 - 4 % [facility] Basophils Percent Auto 0.3 0 - 2 % [facility] NRBC Pct Auto 31.6(H) 0.0 - 0.2 /100WBC [facility] Neutrophils Absolute Auto 1.3(L) 2.0 - 8.3 x10*3/uL [facility] Imm Gran Abs Auto 0.02 0.00 - 0.03 X10*3/uL [facility] Lymphocytes Absolute Auto 2.0 1.2 - 4.9 X10*3/uL [facility] Monocytes Absolute Auto 0.5 0.1 - 1.2 X10*3/uL [facility] Eosinophils Absolute Auto 0.1 0.0 - 0.4 X10*3/uL [facility] Basophils Absolute Auto 0.0 0.0 - 0.2 X10*3/uL [facility] NRBC Abs Auto 1.210(H) 0.0 - 0.012 X10*3/uL [facility] Blood Venous blood specimen / Unknown 11/03/2024 12:19 PM EDT 11/03/2024 12:19 PM EDT us Sanjuana Anderson MD LAB BLOOD ORDERABLES Edite d Result - Final [facility] [address] [place] [phone] * (ABNORMAL) Comprehensive Metabolic Panel (11/03/2024 12:19 PM EDT) Sodium 140 135 - 145 mmol/L [facility] Potassium 4.4 3.3 - 5.1 mmol/L [facility] Chloride 108 96 - 108 mmol/L [facility] Carbon Dioxide 24 22 - 29 mmol/L [facility] Anion Gap 12 12 - 20 [facility] Urea Nitrogen (BUN) 10 9 - 16 mg/dL [facility] Creatinine, Serum 0.62 0.5 - 1.4 mg/dL [facility] Estimated Glomerular Filt Rate >60 [facility] Comment:Chronic Kidney Disea se: Estimated GFR < 60 mL/min/1.16t0Alhjjk Kidney Disease: Estimated GFR < 15 mL/min/1.73m2 Glucose 85 60 - 115 mg/dL [facility] Calcium 9.0 8.4 - 10.2 mg/dL [facility] Bilirubin, Total 1.1(H) 0.0 - 1.0 mg/dL [facility] Aspartate Amino Transferase 39(H) 5 - 31 U/L [facility] Alanine Aminotransferase 22 0 - 31 U/L [facility] Total Protein 8.1(H) 6.5 - 8.0 g/dL [facility] Albumin Level 4.3 3.5 - 5.0 g/dL [facility] Alkaline Phosphatase 84 39 - 117 U/L [facility] Blood Venous blood specimen / Unknown 11/03/2024 12:19 PM EDT 11/03/2024 12:19 PM EDT Sanjuana Anderson MD LAB BLOOD ORDERABLES Final Result Performing Organization Address City/State/[facility] Co de Phone Number [facility] [address] [place] [phone] * BI Mammogram Screening Tomosynthesis Bilateral (02/22/2024 2:30 PM EST) Anatomical Region Laterality Modality Breast Bilateral Mammography 02/22/2024 2:30 PM EST Narrative 03/03/2024 1:34 PM EST [address] [place] [address] Mammography Report Signed Patient: Pina Sullivan MR#: [id number] 3 : 1980 Acct:[id number] Age/Sex: 43 / F ADM Date: 02/22/24 Loc: HO.MAMMO Attending Dr: Sanjuana Anderson MD Ordering Physician: Sanjuana Anderson MD Results: 2B enign Findings Date of Service: 02/22/24 Follow Up: 1 Year From Orig inal Mammogram Procedure(s): MM tomosynthesis screening BI Accession Number(s): [id number] cc: Sanjuana Anderson MD EXAMINATION: MM SCREENING [...] 03/03/24 1332 DD/ 1430 TD/TT: 02/22/24 1447 Office Services Assistant: Procedure Note Donotuseinterpreter, Image - [facility] [address] [place], [place] [address] Mammography Report Signed Patient: Pina Sullivan DMR#: [id number] 3 : 1980Acct:[id number] Age/Sex: 43 / FADM Date: 02/22/24 Loc: HO.MAMMO Attending Dr: Sanjuana Anderson MD Ordering Physician: Sanjuana Anderson MDResults: 2B enign Findings Date of Service: 02/22/24Follow Up: 1 Year From Orig inal Mammogram Procedure(s): MM tomosynthesis screening BI Accession Number(s): [id number] cc: Sanjuana Anderson MD EXAMINATION: MM SCREENING [...] 03/03/24 1332 DD/ 1430 TD/TT: 02/22/24 1447 Office Services Assistant: Sanjuana Anderson MD IMG BI PROCEDURES Final Re sult * Pap Smear (07/05/2021) Swab 07/05/2021 Narrative Heidi Wells RN - 02/18/2022 10:36 AM EST Completed with Emmy Gonzalez MD at [facility], see scanned report in care everywhere Historical Provider MD LAB CYTOLOGY ORDERABLES E dited Result - Final * HPV mRNA E6/E7 (04/08/2018 2:39 PM EST) HPV mRNA E6/E7 Not Detected NOT DETECTED [facility] Comment: This test was performed using the APTIMA(R) HPV Assay ([employer] This assay detects E6/E7 viral messenger RNA (mRNA) from 14 high-risk HPV types (16,18,31,33,35,39,45,51, 52,56,58,59,66,68). For additional information please refer to: http://education.Lexy.PointBurst/faq/EBR487i2 (This link is being provided for informational/ educational purposes only.) The analytical performance characteristics of this assay have been determined by [employer] [place], [place]. The modifications have not been cleared or approved by the FDA. This assay has been validated pursuant to the CLIA regulations and is used for clinical purposes. Test Performed by [employer], [employer] [place], [address] [place], [place] Timmy Jiménez M.D., Ph.D., Director of Laboratories , CLIA [id number] Please note: Effective 11/19/2015, HPV testing will be performed using [employer] APTIMA test which targets mRNA. Detecting mRNA instead of DNA, as in older methods, offers significant improvements in specificity. 04/08/2018 2:39 PM EST Sanjuana Anderson MD HISTORICAL/NON ORDERABLE L ABS Final Result Performing Organization Address City/State/[facility] Co n[place] Phone Number [facility] [address] [place] [address] * HM Hepatitis C Antibody (04/08/2018) Hepatitis C Antibody Nonreactive Blood Historical Provider HEALTH MAINTENANCE Final Result * HIV 1/2 Antigen and Antibody (04/08/2018) HIV Ag/Ab Nonreactive Brian Perez MD HEALTH MAINTENANCE Final Result from Last 3 Months or Most Recently Relevant to Health Maintenance Insurance [employer] [facility] STAND ADULT Advance Directives Documents on File Type Date Recorded Patient Clutch Assembler Expl anation Advance Directives and Livin g Will 05/08/2023 1:40 PM HCP Care Teams Licensed Reactor Operator Relationship Specialty Start Date End Date [place], [place] Sanjuana [address] [place] [address] PCP - General Family Medicine 03/09/18 Wen Gan MD [facility] [address] [place] [phone] Hematology and Oncology 01/27/24 Ebony Lal PsyD [facility] Krystina [facility] [address] [place] [address] Psychiatry 01/27/24 Shania Xiao MD [address] [place] [address], [place] [address] Orthopaedic Surgery 01/27/24
--- OUTSIDE RECORDS SUMMARY | 2024-11-28 19:39 | XMS_ITS | Encounter Summary ---
Author Organization [facility] Address [address] [place] [address] 7t [place] [address] Care Team Providers Care Scrap Materials Buyer Name Role Phone Sanjuana Anderson MD Primary Care Provider +1- [phone] Reason for Visit * Reason Onset Date Comments triage 07/09/2022 Encounter Details Date Type Department Care Team ([facility] st Contact Info) Description 07/09/2022 Telephone [facility] [address] [place], [place] [phone] Sanjuana Anderson MD [address] [place], [place] [phone] triage Social History Tobacco Use Types Packs/Day [...] Miscellaneous Notes * Telephone Encounter - Eliane Benosn RN - 07/09/2022 1:11 PM EDT Triage call with [place] Intepreter ID [id number] Pt reports since yesterday started with left [...] denies numbness, cough. Advised to come to [facility] today to be seen and Pt [...] acuity questions The caller accepted this outcome Sinhala speaker documented in this encounter Plan of Treatment Not on file documented as of this encounter Visit Diagnoses Not on filedocumented in this encounter Additional Health Concerns Assessment Noted Time PHQ-9 Depression Total Score: 5 04/11/19 23 10:29 AM EST documented as of this encounter Care Teams Scrap Materials Buyer Relationship Specialty Start Date End Date Sanjuana Anderson MD [address] [place] [address] PCP - General Family Medicine 03/09/18 Wen Gan MD [facility] [address] [place] [address] Hematology and Oncology 01/27/24 [facility]D [facility] [address] [place] [address] Psychiatry 01/27/24 Shania Xiao MD [address] [place] [address], [address] [place], [place] [phone] Orthopaedic Surgery 01/27/24 documented as of this encounter
--- OUTSIDE RECORDS SUMMARY | 2024-11-28 19:39 | XMS_ITS | Encounter Summary ---
Author Organization [employer] [facility] Address [address] [place] [address] 7t [place] [address] Care Team Providers Care Buckle Strap Puncher Name Role Phone Sanjuana Anderson MD Primary Care Provider [phone]- [phone] Encounter Details Date Type Department Care Team ([facility] st Contact Info) Description 08/08/2022 Abstract [facility] [address] [place] [address] Sanjuana Anderson MD [address] [place] [address] Social History Tobacco Use Types Packs/Day Years [...] documented as of this encounter Care Teams Buckle Strap Puncher Relationship Specialty Start Date End Date Sanjuana Anderson MD [address] [place] [address] PCP - General Family Medicine 03/09/18 Wen Gan MD [facility] [address] [place] [address] Hematology and Oncology 01/27/24 Ebony Lal PsyD [facility] [address] [place] [address] Psychiatry 01/27/24 Shania Xiao MD [address] [place] [address], [address] [place], [place] [phone] Orthopaedic Surgery 01/27/24 documented as of this encounter
--- OUTSIDE RECORDS SUMMARY | 2024-11-28 19:39 | XMS_ITS | Encounter Summary ---
Author Organization [employer] [facility] Address [address] [place] [address] 7 [place] [address] Care Team Providers Care Coin Purse Framer Name Role Phone Sanjuana Anderson MD Primary Care Provider +1- [phone] Encounter Details Date Type Department Care Team [...] on filedocumented in this encounter Care Teams Coin Purse Framer Relationship Specialty Start Date End Date Sanjuana Anderson MD [address] [place] [address] PCP - General Family Medicine 03/09/18 Wen Gan MD [facility] [address] [place] [address] Hematology and Oncology 01/27/24 Ebony Lal PsyD [facility] Krystina [facility] [address] [place] [address] Psychiatry 01/27/24 Shania Xiao MD [address] [place] [address], [place] [address] Orthopaedic Surgery 01/27/24 documented as of this encounter
--- OUTSIDE RECORDS SUMMARY | 2024-11-28 19:39 | XMS_ITS | Encounter Summary ---
Author Organization [employer] Address [address] [place] [address] 7t [place] [address] Care Team Providers Care Intranet Developer Name Role Phone Sanjuana Anderson MD Primary Care Provider +1- [phone] Encounter Details Date Type Department Care Team (Late st Contact Info) Description 08/26/2022 Abstract [facility] MED[facility]INE 230 [place] [address] Sanjuana Anderson MD 230 [place] [address] Social History Tobacco Use Types Packs/Day Years [...] documented as of this encounter Care Teams Intranet Developer Relationship Specialty Start Date End Date Sanjuana Anderson MD [address] [place] [address] PCP - General Family Medicine 03/09/18 Wen Gan MD [facility] Oncology [address] [place] [phone] Hematology and Oncology 01/27/24 Ebony Lal PsyD [facility] [address] [place] [address] Psychiatry 01/27/24 Shania Xiao MD [address] [address], [place] [address] Orthopaedic Surgery 01/27/24 documented as of this encounter
--- OUTSIDE RECORDS SUMMARY | 2024-11-28 19:39 | XMS_ITS | Encounter Summary ---
Author Organization [employer] [facility] Address [address] [place] [address] 7t [place] [address] Care Team Providers Care Photo Mask Inspector Name Role Phone Sanjuana Anderson MD Primary Care Provider +1- [phone] Encounter Details Date Type Department Care Team (Late st Contact Info) Description 04/16/2022 Abstract [facility] MED[facility]INE 230 [place] [address] Sanjuana Anderson MD 230 [place] [address] Social History Tobacco Use Types Packs/Day Years [...] documented as of this encounter Care Teams Photo Mask Inspector Relationship Specialty Start Date End Date Sanjuana Anderson MD 230 [place] [address] PCP - General Family Medicine 03/09/18 Wen Gan MD [facility] for Hematology and Medical Oncology [address] [place] [address] Hematology and Oncology 01/27/24 Ebony Lal PsyD [facility] Krystina [facility] [address] [place] [address] Psychiatry 01/27/24 Shania Xiao MD [address] [place] [address] 4, [address] [place], [place] [phone] Orthopaedic Surgery 01/27/24 documented as of this encounter
--- OUTSIDE RECORDS SUMMARY | 2024-11-28 19:39 | XMS_ITS | Encounter Summary ---
Author Organization [employer] Address [address] [facility] 7t [place] [address] Care Team Providers Care Sales Floor Team Member Name Role Phone Sanjuana Anderson MD Primary Care Provider +1- [phone] Encounter Details Date Type Department Care Team (Late st Contact Info) Description 11/23/2024 Orders Only [facility] 230 [place], [place] [phone] Sanjuana Anderson MD 230 [place] [address] Sickle cell 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) (Primary [...] (CMS/HCC) documented in this encounter Results * Pathologist Review - CBC (11/23/2024 4:49 PM EDT) Pathologist Review - CBC SEE NOTE [facility] Comment:- Anemia with sickle cells, target cells, macrocytosis,[employer] bodies, anisocytosis and marked increase innucleated RBC's, features in keeping with patient's knownsickle cell anemia. Marrow stress is noted.- Leukopenia: consider infection vs drug/medication effectvs other etiologies.Reviewed by Maya Bland MD 11/23/2024 4:49 PM EDT 11/23/2024 4:49 PM EDT Sanjuana Anderson MD LAB BLOOD ORDERABLES Final Result Performing Organization Address [facility]/ZIP Co de Phone Number [facility] [address] [place] [address] [phone] * (ABNORMAL) Basic Metabolic Panel (11/23/2024 4:49 PM EDT) [facility] [address] Sodium 139 135 - 145 mmol/L [facility] Potassium 3.9 3.3 - 5.1 mmol/L [facility] Chloride 109(H) 96 - 108 mmol/L [facility] Carbon Dioxide 25 22 - 29 mmol/L [facility] Anion Gap 9(L) 12 - 20 [facility] Urea Nitrogen (BUN) 11 9 - 16 mg/dL [facility] Creatinine, Serum 0.64 0.5 - 1.4 mg/dL [facility] Estimated Glomerular Filt Rate >60 [facility] Comment:Chronic Kidney Disea se: Estimated GFR < 60 mL/min/1.51t3Anhlzo Kidney Disease: Estimated GFR < 15 mL/min/1.73m2 Glucose 93 60 - 115 mg/dL [facility] Calcium 8.8 8.4 - 10.2 mg/dL [facility] Blood Venous blood specimen / Unknown 11/23/2024 4:49 PM EDT 11/23/2024 4:49 PM EDT Sanjuana Anderson MD LAB BLOOD ORDERABLES Final Result Performing Organization Address City/[facility]/ZIP Co de Phone Number [facility] [address] [place] [address] [phone] * (ABNORMAL) CBC (11/23/2024 4:49 PM EDT) Pathologist [facility] White Blood Count 4.5(L) 4.8 - 10.8 X10*3/uL [facility] Red Blood Count 1.91(L) 4.20 - 5.50 X10*6/uL [facility] Hemoglobin 7.2(L) 12.0 - 16.0 g/dl [facility] Hematocrit 20.0(LL) 37.0 - 47.0 % [facility] Comment:RESULTS OF HCT HARVEY D TO AND READ BACK BY DR ALEX CHENEY 11/23/24 AT 1724 BY GRADY. Mean Corpuscular Volume 104.7(H) 80.0 - 98.0 fL [facility] Mean Corpuscular Hemoglobin 37.7(H) 27.0 - 33.0 pg [facility] Mean Corpuscular HGB Conc 36.0(H) 31.0 - 35.0 g/dl [facility] Red Cell Distribution Width 18.9(H) 11.0 - 16.0 % [facility] Platelet Count 229 160 - 400 X10*3/uL [facility] Mean Platelet Volume 10.3 9.4 - 12.3 fL [facility] NRBC Pct Auto 50.2(H) 0.0 - 0.2 /100WBC [facility] NRBC Abs Auto 2.280(H) 0.0 - 0.012 X10*3/uL [facility] Blood Venous blood specimen / Unknown 11/23/2024 4:49 PM EDT 11/23/2024 4:49 PM EDT us Sanjuana Anderson MD LAB BLOOD ORDERABLES Final Result [facility] [address] [place] [phone] [phone] documented in this encounter Visit Diagnoses Diagnosis Sickle cell 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 documented in this encounter Additional Health Concerns Assessment Noted Time PHQ-9 Depression Total Score: 11 01/26/ 024 3:25 PM EST documented as of this encounter Care Teams Sales Floor Team Member Relationship Specialty Start Date End Date Sanjuana Anderson MD [address] [place] [address] PCP - General Family Medicine 03/09/18 Wen Gan MD [facility] [address] [place] [address] Hematology and Oncology 01/27/24 Ebony Lal PsyD [facility] Krystina [facility] [address] [place] [address] Psychiatry 01/27/24 Sahnia Xiao MD [address] [place] [address], [address] [place], [place] [phone] Orthopaedic Surgery 01/27/24 documented as of this encounter
--- OUTSIDE RECORDS SUMMARY | 2024-11-28 19:39 | XMS_ITS | Encounter Summary ---
Author Organization [employer] Address [address] [facility] 7t [place] [address] Care Team Providers Care Substance Abuse Clinician Name Role Phone Sanjuana Anderson MD Primary Care Provider +1- [phone] Reason for Visit * Reason Onset Date Comments Referral 10/25/2024 Encounter Details Date Type Department Care Team ([facility] st Contact Info) Description 10/25/2024 Telephone [facility] MEDICINE 230 [place], [place] [phone] Sanjuana Andersno MD 230 [place], [place] [phone] Referral Social History Tobacco Use Types Packs/Day [...] Telephone call to pt via [employer] #[id number]. Pt reports hitting her leg several months ago and for the last few days has had pain on/off behind her knee near where her calf starts. Denies open area, redness, swelling, bruising. She currently goes to [facility] (referral below) for her shoulder but is requesting to see that office for her leg, too. Advised pt since this is a new problem, needs to be evaluated in person for referral. Offered pt sick on site, pt declined seeing another provider besides PCP, states she will go to [facility]. Reviewed hrs, extended clinic/Thursday clinic, advised first come first serve. Pt also asked if market research senior project manager Dr Gan called to notify about need for repeat labs. Advised her yes, PCP aware and ordered labs, she can do at [facility] or [facility]. Pt states she was told to do these in 2 weeks, advised her hematology stated to us 1 month (mid Nov), advised pt to call their office for clarification. Pt verbalized understanding, no further questions. * Telephone Encounter - Josefina Fam - 10/25/2024 10:22 AM EDT Tc from pt requesting a referral to a orthopedic surgeon , Dr. Xiao [address],[place] [address] Contact pt at [phone] documented in this encounter Plan of Treatment Not on file documented as of this encounter Visit Diagnoses Not on filedocumented in this encounter Additional Health Concerns Assessment Noted Time PHQ-9 Depression Total Score: 11 024 3:25 PM EST documented as of this encounter Care Teams Substance Abuse Clinician Relationship Specialty Start Date End Date Sanujana Anderson MD [address] [place] [address] PCP - General Family Medicine 03/09/18 Wen Gan MD [facility] for Hematology and Medical Oncology [address] [place] [phone] Hematology and Oncology 01/27/24 Ebony Lal PsyD [facility] [address] [place] [phone] Psychiatry 01/27/24 Shania Xiao MD [address] [place] [address] 4, [place] [address] Orthopaedic Surgery 01/27/24 documented as of this encounter
--- OUTSIDE RECORDS SUMMARY | 2024-11-28 19:39 | XMS_ITS | Encounter Summary ---
Author Organization [employer] Address [address] [place] [address] 7t [place] [address] Care Team Providers Care Shoe Worker Name Role Phone Sanjuana Anderson MD Primary Care Provider +1- [phone] Reason for Visit * Reason Onset Date Comments Results 11/24/2024 Care Coordination 11/24/2024 Encounter Details Date Type Department Care Team ([facility] st Contact Info) Description 11/24/2024 Results Follow-Up [facility]INE [address] [place] [address] Barbara Garner RN CBC, Basic Metabolic Panel, Pathologist Review - CBC Social History Tobacco Use Types Packs/Day Years [...] Encounter - Barbara Garner RN - 11/24/2024 10:52 AM EDT Duplicate message. Faxed results today to Dr. Gan's office. Called and left message with Tyesha at [facility] [phone] to say faxed recent labs today and to call Dr Anderson directly ([phone]) with questions, concerns, or follow up. * Telephone Encounter - Barbara Garner RN - 11/24/2024 10:52 AM EDT ----- Message from Nurse Ledy Centeno sent at 11/24/2024 10:38 AM EDT ----- ----- Message ----- From: Sanjuana Anderson MD Sent: 11/24/2024 10:12 AM EDT To: [facility] Red Team Nurses Please fax cbc and bmp results to manager of purchasing in [place] as requested in telephone call 10/19/24. Please call to leave message with my cell if any concerns or future labs needed. Thank you. ----- Message ----- From: Interface, Lab Results In Sent: 11/23/2024 5:24 PM EDT To: Sanjuana Anderson MD documented in this encounter Plan of Treatment Not on file documented as of this encounter Visit Diagnoses Not on filedocumented in this encounter Additional Health Concerns Assessment Noted Time PHQ-9 Depression Total Score: 11 024 3:25 PM EST documented as of this encounter Care Teams Shoe Worker Relationship Specialty Start Date End Date Sanjuana Anderson MD [address] [place] [address] PCP - General Family Medicine 03/09/18 Wen Gan MD [facility] for Hematology and Medical Oncology [address] [place] [phone] Hematology and Oncology 01/27/24 Eb[facility]D [facility] [address] [place] [address] Psychiatry 01/27/24 Shania Xiao MD [address] [place] [address] 4, [address] [place], [place] [phone] Orthopaedic Surgery 01/27/24 documented as of this encounter
[2024-11-28 19:51] VITALS: BP 109/68; PULSE 83; RESP 16; O2SAT 100
[2024-11-28 19:58] LABS: Hematocrit 23.5 % (37.0-47.0); Hemoglobin 8.4 g/dl (12.0-16.0); Imm Gran Abs Auto 0.01 X10*3/uL (0.00-0.03); Imm Gran Pct Auto 0.2 % (0.0-0.4); Lymphocytes Absolute Auto 3.2 X10*3/uL (1.2-4.9); MANUAL DIFF FLAG SCAN; Mean Corpuscular HGB Conc 35.7 g/dl (31.0-35.0); Mean Corpuscular Volume 108.8 fL (80.0-98.0); NRBC Abs Auto 3.820 X10*3/uL (0.0-0.012); Platelet Count 244 X10*3/uL (160-400); Red Blood Count 2.16 X10*6/uL (4.20-5.50); SCAN SMEAR FLAG 1; White Blood Count 4.7 X10*3/uL (4.8-10.8)
[2024-11-28 19:59] LABS: NRBC Pct Auto 80.6 /100WBC (0.0-0.2)
[2024-11-28 20:00] LABS: Mean Corpuscular Hemoglobin 38.9 pg (27.0-33.0)
--- NOTE | 2024-11-28 20:04 | PC.NURSE ---
pt denies pain, states feeling extremely fatigued when walking a distance, 02 at 100% on r/a, pt feels okay when resting. pt states PCP advised Hgb was 7.5, blood work done here, awaiting results
[2024-11-28 20:13] LABS: Alanine Aminotransferase 28 U/L (0-31); Albumin Level 4.5 g/dL (3.5-5.0); Alkaline Phosphatase 108 U/L (39-117); Anion Gap 12 (12-20); Aspartate Amino Transferase 45 U/L (5-31); Blood Urea Nitrogen 12 mg/dL (9-16); Calcium 8.9 mg/dL (8.4-10.2); Carbon Dioxide 23 mmol/L (22-29); Chloride 110 mmol/L (96-108); Creatinine Clr Calc Pharmacy 95.3; Estimated Glomerular Filt Rate > 60; Magnesium 2.3 mg/dL (1.6-2.6); Potassium 4.1 mmol/L (3.3-5.1); Sodium 141 mmol/L (135-145); Total Protein 8.8 g/dL (6.5-8.0)
--- NOTE | 2024-11-28 22:10 | ED.RECABL ---
HPI - Recheck/Abnormal Lab/Rx General Chief Complaint: Recheck/Abnormal Lab/Rx Stated Complaint: ? 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 Melonie Garcia HPI narrative: 44-year-old female with a history of sickle cell anemia presenting with low hemoglobin levels. Patient states that she had her blood drawn on 11/23/2024 and was told to come to the hospital for blood transfusion when her hemoglobin level was noted to be in the 7 range. Patient states that she has had multiple transfusions in the past, normally when her hemoglobin drops around 6. Describes some shortness of breath on exertion and general fatigue but otherwise denies fever, chest pain, joint pain, vomiting, diarrhea, bleeding. Denies cough. No sputum production. No skin rashes. Related Data Home Medications ?Medication ?Instructions ?Recorded ?Confirmed calcium 600 mg capsule 600 mg PO DAILY 06/01/20 10/14/22 fluticasone propionate 50 1 spray intranasal BID 06/01/20 10/14/22 mcg/actuation nasal spray,suspension folic acid 5 mg capsule 5 mg PO QWEEK 06/01/20 10/14/22 hydroxyurea (sickle cell) 400 mg 400 mg PO DAILY 06/01/20 10/14/22 capsule loratadine 10 mg tablet 10 mg PO DAILY 06/01/20 10/14/22 morphine 15 mg immediate release 15 mg PO Q4H PRN Pain 06/01/20 10/14/22 tablet oxycodone 10 mg tablet 10 mg PO BID PRN Pain 06/01/20 10/14/22 epinephrine 0.3 mg/0.3 mL 0.3 mg IM Q4H PRN Allergic Reaction 06/10/21 10/14/22 injection, auto-injector (EpiPen) Previous Rx's ?Medication ?Instructions ?Recorded nirmatrelvir 300 mg (150 mg See Rx Instructions PO .COMPLEX 11/17/21 x2)-ritonavir 100 mg tablet,dose #30 ea pack (Paxlovid) Allergies Allergy/AdvReac Type Severity Reaction Status Date / Time ibuprofen (IBUPROFEN) Allergy Intermediate HIVES, Verified 11/28/24 19:16 FACIAL SWELLING ketorolac (From TORADOL) Allergy Intermediate SWELLING Verified 11/28/24 19:16 Review of Systems Review of Systems: As per HPI, full review of systems performed and negative but for the above mentioned pertinent positives and negatives. [facility] Past Medical History Medical History Hx of osteomyelitis Surgical History H/O adenoidectomy History of surgery on left wrist Family History Family History Mother Hx of breast cancer Social History Social History Household Members: None Housing: House Are you a primary career orientation teacher to a significant other at home: No Do you presently have visiting nurse or other home 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 (assembler lay ups) Alcohol intake: never Patient Tobacco Use Status: Never used Tobacco Smoked in Last 30 Days: No Use of substances other than those prescribed or required for medical reasons: No Advance Directives: No Advance Directives Information Provided: No Do you have a plan to hurt others: No Plan service: No Current occupational status: unemployed Physical Exam Exam: Exam: GENERAL: Chronically ill-Appearing, appears uncomfortable. SKIN: Pale skin color for ethnicity, warm, dry, no rashes noted. HEENT: Normocephalic, atraumatic, no stridor, dry mucous membranes, dentition intact, EOMI, PERRLA. NECK: Soft, supple, full ROM, midline structures nontender, no step-offs, no deformities, no lymphadenopathy. CHEST: Heart regular rhythm, no murmurs, symmetric chest rise and fall. PULMONARY: Clear to auscultation bilaterally, diminished at the bases, no labored breathing, no wheezes/rhales/rhonchi. ABDOMINAL: Soft, nondistended, nontender, positive bowel sounds in all quadrants. : Deferred. MUSCULOSKELETAL: Normal tone, full range of motion, no deformities, no peripheral edema. NEURO: Alert and oriented x3, CN II through XII intact, equal strength and sensation bilateral upper and lower extremities, no focal neurologic deficits. PSYCHIATRIC: Flat affect, fluid speech, good eye contact and appropriate demeanor. Vital Signs: Vital Signs: Last Vital Signs Temp 98.4 F 11/28/24 19:14 Pulse 83 11/28/24 19:51 Resp 16 11/28/24 19:51 BP 109/68 11/28/24 19:51 Pulse Ox 100 11/28/24 19:51 O2 Del Method Room Air 11/28/24 19:51 BMI result Body Mass Index 20.1 Medical Decision Making Medical Decision Making MDM Narrative: 44-year-old female with a history of sickle cell anemia presenting with low hemoglobin levels, dyspnea on exertion. Differential diagnosis includes lab error, sickle cell crisis, symptomatic anemia, pneumonia, electrolyte abnormality, renal dysfunction, thrombocytopenia, among many others. Extensive search into the patient's chart reveals history of anemia, as low as 7.2 this week. Given her symptomatic anemia and relatively low hemoglobin level compared to her baseline of 10, we will transfuse 1 unit PRBCs. Reticulocyte count added. Patient remains hemodynamically stable with normal oxygen levels on room air. Differential Diagnosis Differential Diagnoses: The differential diagnosis associated with the presentation includes (as above) Lab Data 11/28/24 19:50 11/28/24 19:50 Labs: Lab Results 11/28/24 Range/Units 19:50 WBC 4.7 L (4.8-10.8) X10*3/uL RBC 2.16 L (4.20-5.50) X10*6/uL Hgb 8.4 L (12.0-16.0) g/dl Hct 23.5 L (37.0-47.0) % MCV 108.8 H (80.0-98.0) fL MCH 38.9 H (27.0-33.0) pg MCHC 35.7 H (31.0-35.0) g/dl RDW 19.7 H (11.0-16.0) % Plt Count 244 (160-400) X10*3/uL MPV 10.8 (9.4-12.3) fL Immature Gran % (Auto) 0.2 (0.0-0.4) % Neut % (Auto) 21.1 L (45-73) % Lymph % (Auto) 68.4 H (20-40) % [place] % (Auto) 9.7 (2-11) % Eos % (Auto) 0.4 (0-4) % Baso % (Auto) 0.2 (0-2) % Lymph # (Auto) 3.2 (1.2-4.9) X10*3/uL [place] # (Auto) 0.5 (0.1-1.2) X10*3/uL Eos # (Auto) 0.0 (0.0-0.4) X10*3/uL Baso # (Auto) 0.0 (0.0-0.2) X10*3/uL Abs Immat Gran (auto) 0.01 (0.00-0.03) X10*3/uL Absolute Neuts (auto) 1.0 L (2.0-8.3) x10*3/uL Absolute Nucleated RBC 3.820 H (0.0-0.012) X10*3/uL Nucleated RBC % (auto) 80.6 H (0.0-0.2) /100WBC Smear Tech's Comments VERIFIED Absolute Retic Cancelled Percent Retic Cancelled Immature Retic Fraction Cancelled Retic Hgb Equivalent Cancelled Sodium 141 (135-145) mmol/L Potassium 4.1 (3.3-5.1) mmol/L Chloride 110 H (96-108) mmol/L Carbon Dioxide 23 (22-29) mmol/L Anion Gap 12 (12-20) BUN 12 (9-16) mg/dL Creatinine 0.62 (0.5-1.4) mg/dL Estim Creat Clear Calc 95.3 Estimated GFR > 60 Random Glucose 85 (60-115) mg/dL Calcium 8.9 (8.4-10.2) mg/dL Magnesium 2.3 (1.6-2.6) mg/dL Total Bilirubin 0.7 (0.0-1.0) mg/dL AST 45 H (5-31) U/L ALT 28 (0-31) U/L Alkaline Phosphatase 108 (39-117) U/L Total Protein 8.8 H (6.5-8.0) g/dL Albumin 4.5 (3.5-5.0) g/dL Discharge Plan Discharge Clinical Impression: Symptomatic anemia, Sickle cell disease Instructions: Blood Transfusion Discharge Instructions Additional Instructions: Follow-up with your solar design engineer as soon as possible. Return to the ER with any new or worsening symptoms including: Worsening shortness of breath, chest pain, fevers greater than 100?, severe joint pain, any new symptom that concerns you. Call 911 with any medical emergency. Prescriptions: No Action calcium 600 mg Capsule 600 mg PO DAILY folic acid 5 mg Capsule 5 mg PO QWEEK morphine 15 mg Tablet 15 mg PO Q4H PRN (Reason: Pain) fluticasone propionate 50 mcg/actuation [place],Suspension 1 spray INTRANASAL BID hydroxyurea (sickle cell) 400 mg Capsule 400 mg PO DAILY loratadine 10 mg Tablet 10 mg PO DAILY oxycodone 10 mg Tablet 10 mg PO BID PRN (Reason: Pain) epinephrine [EpiPen] 0.3 mg/0.3 mL Auto-Injector 0.3 mg IM Q4H PRN (Reason: Allergic Reaction) Paxlovid 300 mg (150 mg x 2)-100 mg tablets,dose pack See Rx Instructions .ROUTE .COMPLEX Qty: 30 0RF Rx Instructions: take TWO 150 mg tablets of nirmatrelvir with ONE 100 mg tablet of ritonavir twice daily for 5 days Print Language: Bahraini
[2024-11-28 22:40] LABS: Reticulocytes Absolute 0.111 X10*6/uL (0.026-0.095)
[2024-11-28 23:18] VITALS: BP 98/59; PULSE 85; RESP 18; TEMP 36.8
[2024-11-28 23:26] VITALS: BP 108/72; PULSE 82; RESP 16; TEMP 36.8
--- NOTE | 2024-11-28 23:32 | PC.NURSE ---
blood confirmed, called lab as blood was O negative and pt type is O positive, lab confirmed this is correct and best for t due to sickle cell hx. Blood late b 1minute.
[2024-11-28 23:37] VITALS: BP 108/72; PULSE 82; RESP 16; TEMP 36.8; O2SAT 100
[2024-11-28 23:42] VITALS: BP 107/67; PULSE 87; RESP 20; TEMP 36.8
[2024-11-29 02:27] VITALS: BP 102/61; PULSE 72; RESP 16; TEMP 36.6
[2024-11-29 02:44] VITALS: BP 93/64; PULSE 76; RESP 18; TEMP 36.6
[2024-11-29 02:45] VITALS: BP 93/64; PULSE 76; RESP 18; TEMP 36.6
[2024-11-29 03:02] VITALS: BP 97/62; PULSE 76; RESP 18; TEMP 36.6; O2SAT 98
== END 2024-11-29 03:14 | disposition home or self-care (01) ==
PROVIDERS: Physician Assistant Medical; Emergency Provider Emergency Medicine; PCP Family Medicine
DX: D64.9 Anemia, unspecified (principal); D57.1 Sickle-cell disease without crisis; Z79.899 Other long term (current) drug therapy
CPT/HCPCS: 36415; 36430; 80053; 83735; 85025; 85045; 86850; 86900; 86901; 86902; 86905; 86920; 86922; 99284; 99285; P9016

== ENCOUNTER 2024-12-13 16:38 | Outpatient (REF) | payer MEDICAID, SELFPAY ==
[2024-12-13 17:05] LABS: Hematocrit 27.0 % (37.0-47.0); Hemoglobin 9.4 g/dl (12.0-16.0); Imm Gran Abs Auto 0.01 X10*3/uL (0.00-0.03); Imm Gran Pct Auto 0.2 % (0.0-0.4); Lymphocytes Absolute Auto 3.3 X10*3/uL (1.2-4.9); MANUAL DIFF FLAG SCAN; Mean Corpuscular HGB Conc 34.8 g/dl (31.0-35.0); Mean Corpuscular Hemoglobin 37.3 pg (27.0-33.0); Mean Corpuscular Volume 107.1 fL (80.0-98.0); NRBC Abs Auto 0.400 X10*3/uL (0.0-0.012); Platelet Count 207 X10*3/uL (160-400); Red Blood Count 2.52 X10*6/uL (4.20-5.50); Reticulocytes Absolute 0.061 X10*6/uL (0.026-0.095); SCAN SMEAR FLAG 1; White Blood Count 5.3 X10*3/uL (4.8-10.8)
[2024-12-13 17:08] LABS: NRBC Pct Auto 7.5 /100WBC (0.0-0.2)
--- OUTSIDE RECORDS SUMMARY | 2024-12-13 18:57 | XMS_ITS | Clinical Summary ---
Author Organization [employer] Address [address] [place] [address] [address] [place] [address] Care Team Providers Care Issuer Name Role Phone Sanjuana Anderson MD Primary Care Provider [phone] Allergies Active Allergy Reactions Criticality Noted Date Comments Ibuprofen Swelling,Hives High 03/05/2015 Ketorolac Swelling Medium 06/04/2021 Ocular swelling Ketorolac Tromethamine 04/11/2022 Medications Diclofenac Sodium 1 % gel PLEASE SEE ATTACHED FOR DETAILED DIRECTIONS 2 Active oxyCODONE (Roxicodone) 10 MG immediate release tablet q 6 hours prn A ctive morphine CR (MS Contin) 15 MG 12 hr tablet Do not crush, chew, or split. Active EPINEPHrine (Epipen) 0.3 MG/0.3ML injection syringeIndicatio ns:Allergy, sequela Prn allergic reaction 1 each 3 Active FLUoxetine (PROzac) 20 MG tablet TAKE 1 TABLET BY MOUTH EVERY DAY IN THE MORNING 30 tablet 11 3 Active naloxone (Narcan) 4 mg/0.1 mL nasal spray PLEASE SEE ATTACHED FOR DETAILED DIRECTIONS 2 Active traZODone (Desyrel) 50 MG tablet TAKE 1 TABLET BY MOUTH AT BEDTIME 90 tablet 3 3 Active HYDROmorphone (Dilaudid) 2 MG tablet PLEASE SEE ATTACHED FOR DETAILED DIRECTIONS 3 Active Acetaminophen Extra Strength 500 MG tablet TAKE 1 TO 2 TABLET BY ORAL ROUTE EVERY 6 HOURS FOR 4 DAYS, THEN NEEDED 60 tablet 1 4 Active hydroxyurea (Hydrea) 500 MG capsuleIndicatio ns:Sickle cell anemia with crisis (HCC) Take 1,000 mg by mouth Once per day. Take at the same time each day. Per heamatology Active folic acid (Folvite) 1 MG tabletIndication s:Sickle cell anemia with crisis (HCC) Take by mouth Once per day. Active Melatonin Maximum Strength 5 MG tablet TAKE 1 TABLET BY MOUTH EVERY DAY AT BEDTIME NEEDED 90 tablet 3 5 Active Calcium Carb-Cholecalcif yunior 600-10 MG-MCG tabletIndication s:Aseptic necrosis of head of humerus, unspecified laterality (HCC) TAKE 1 TABLET BY MOUTH TWICE A DAY 180 tablet 3 5 Active Active Problems Problem Noted Date Diagnosed Date [...] (11/03/2022 10:01 AM EDT): Pt seen Dr Mazzucco for a new density in breast at the 10 oclock position on 10/14/2022. -Genetic testing showed no clinicly specific mutations. -US guided biopsy on 02/11/2022 pathology revealed benign breast tissue. Other specified health status 07/18/2022 Overview (01/27/2024): -next physical exam due after 01/27/24 - Followed by Dr. Dario Miller of [facility] -dental home is - [facility] -Health care proxy filsed 05/06/23 Assessment & Plan (01/27/2024 3:41 PM EST): -next physical exam due after 01/27/24 - Followed by Dr. Dario Miller of [facility] -[place] - [facility] -Health care proxy filsed 05/06/23 Assessment [...] [facility] [place]. Followed by [facility] as well as orthopedics in [place]. Pain meds to be prescribed by me including oxycodone 10mg bid prn which she uses sparingly and acetaminophen with codeine which she uses sparingly for moderate pain. She declined refill today. -continue Hydroxyurea and folic acid. -Followed with Dr. Bajwa and [facility] -Pt had right shoulder hemiarthroplasty surgery 09/18/2022 and is doing well. -seen by hematology in [place] 07/05/24, follow up 3 months - Maintain hydration throughout the day - Discussed hydrea adherence - Continue chronic medications as prescribed -seen 10/17/[address] Wen Gan at [phone]. She wanted to give Dr Anderson an update after recent 10/17/24 visit with the pt. - increased hydroxyurea to 1500mg daily (3 tabs/day). - would like for PCP to order CMP and CBC w/ diff for pt to complete in 1 month to see how she is tolerating it. (Requesting this from PCP because pt lives in [place]). - She requests fax with lab results to be sent to [facility] for Hematology and Medical Oncology in 1 month for her to review to see how pt is tolerating increased dose - she will recheck hemoglobin electrophoresis at pt's next hematology appt in 3 months Assessment & Plan (01/27/2024 3:40 PM EST): Stable. Continue with oncologist Dr Bajwa and [facility] [place]. Followed by [facility] as well as orthopedics in [place]. Pain meds to be prescribed by me including oxycodone 10mg bid prn which she uses sparingly and acetaminophen with codeine which she uses sparingly for moderate pain. She declined refill today. -continue Hydroxyurea and folic acid. -Followed with Dr. Bajwa and [facility] -Pt had right shoulder hemiarthroplasty surgery 09/18/2022 and is doing well. Assessment & Plan (05/06/2023 3:42 PM EST): Jonathan. Continue with oncologist Dr Bajwa and [facility] [place]. Followed by [facility] as well as orthopedics in [place]. Pain meds to be prescribed by me including oxycodone 10mg bid prn which she uses sparingly and acetaminophen with codeine which she uses sparingly for moderate pain. She declined refill today. -continue Hydroxyurea and folic acid. -Followed with Dr. Bajwa and [facility] -Pt had right shoulder hemiarthroplasty surgery 09/18/2022 and is doing well. Assessment & Plan (11/03/2022 9:45 AM EDT): Jonathan. Continue with oncologist Dr Bajwa and [facility] [place]. Followed by [facility] as well as orthopedics in [place]. Pain meds to be prescribed by me including oxycodone 10mg bid prn which she uses sparingly and acetaminophen with codeine which she uses sparingly for moderate pain. She declined refill today. -continue Hydroxyurea and folic acid. -Followed with Dr. 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 Continue with oncologist Dr Bajwa and [facility] [place]. Followed by [facility] as well as orthopedics in [place]. Pain meds to be prescribed by me including oxycodone 10mg bid prn which she uses sparingly and acetaminophen with codeine which she uses sparingly for moderate pain. She declined refill today. -continue Hydroxyurea and folic acid. -Followed with Dr. Bajwa and [facility] -she plans to have surgery of [...] Ebony Lal PsyD Licensed Clinical Psychologist in [place] through sickle cell clinic, note from 10/01/23 reviewed. Assessment & Plan (05/06/2023 3:40 PM EST): -Followed by Ebony Lal PsyD Licensed Clinical Psychologist in [place] through sickle cell clinic Encounters Date Type Department Care Team Description 12/13/2024 Orders Only [facility] [address] [place] [phone] Sanjuana Anderson MD 12/05/2024 Orders Only [facility] [address] [place] [address] Sanjuana Anderson MD Sickle cell 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) (Primary Dx) 12/02/2024 Travel 12/02/2024 Telephone [facility] [address] [place] [address] Sanjuana Anderson MD [facility] Recalls 12/02/2024 Orders Only [facility] [address] [place] [address] Sanjuana Anderson MD 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 ([facility]/HCC) (Primary Dx) 12/02/[address] [address] Sanjuana Anderson MD Call Back Request 11/30/2024 Results Follow-Up [address] [address] Sanjuana Anderson MD CBC auto differential, Comprehensive Metabolic Panel, Magnesium, Additional followed-up results: 5 11/28/2024 Orders Only GENERIC EXTERNAL DATA DEPARTMENT Provider, Generic External Data 11/24/2024 Results Follow-Up [address] [address] Barbara Garner RN CBC, Basic Metabolic Panel, Pathologist Review - CBC 11/23/2024 Telephone [facility] [address] [place] [address] Alex Kunz MD 11/23/[address] [address] Sanjuana Anderson MD Results 11/23/2024 Orders Only [address] [address] Sanjuana Anderson MD Sickle cell disease without crisis ([facility]/HCC) (Primary Dx) 11/09/[address] [address] Sanjuana Anderson MD Referral; Referral-Ortho 11/03/2024 Results Follow-Up [facility] [address] [place] [address] Sanjuana Anderson MD CBC auto differential, Comprehensive Metabolic Panel 11/03/2024 Orders Only [address] [address] Sanjuana Anderson MD 10/31/2024 7:00 PM EDT Office Visit [facility] [address] [address] July Pruitt NP Popliteal pain (Primary Dx) 10/31/2024 Travel 10/29/[address] [address] Sanjuana Anderson MD Aseptic necrosis of head of humerus, unspecified laterality ([facility]) 10/25/2024 Telephone [facility] [address] [place] [address] Sanjuana Anderson MD Referral 10/20/2024 Orders Only [facility] [address] [place], [place] [phone] Sanjuana Anderson MD Sickle cell anemia with crisis ([facility]) (Primary Dx) 10/19/2024 Telephone [facility] [address] [place], [place] [phone] Sanjuana Anderson MD Medication Question; Lab Orders [...] 01/27/2024 3:03 PM EST Plan of Treatment Upcoming Encounters Date Type Department Care Team (Late st Contact Info) Description 03/01/2025 10:30 AM EST Office Visit [facility] [address] [place], [place] [phone] Sanjuana Anderson MD [address] [place], [place] [phone] Health Maintenance Due Date Last Done Comments [...] Procedure Name Priority Date/Time Associated Diagnosis Comments SLIDE REVIEW Routine 12/13/2024 4:44 PM EDT RETICULOCYTE COUNT Routine 12/13/2024 4: 44 PM EDT Sickle cell 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) (HCC) CBC WITH AUTO DIFFERENTIAL Routine 12/13/2024 4:44 PM EDT Sickle cell 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) (HCC) RETICULOCYTE COUNT Routine 11/28/2024 10 :36 PM EDT ANTIGEN IDENTIFICATION Routine 8:55 PM EDT RED BLOOD COUNT Routine 11/28/2024 8:55 PM EDT TYPE AND SCREEN Routine 11/28/2024 8:55 PM EDT SLIDE REVIEW Routine 11/28/2024 7:50 PM EDT MAGNESIUM Routine 11/28/2024 7:50 PM EDT COMPREHENSIVE METABOLIC PANEL Routine 11/28/2024 7:50 PM EDT CBC WITH AUTO DIFFERENTIAL Routine 11/28/2024 7:50 PM EDT PATHOLOGIST REVIEW - CBC Routine 11/23/2024 4:49 [...] Recently Relevant to Health Maintenance Results * Slide Review (12/13/2024 4:44 PM EDT) Only the most recent of3 resultswithin the time period is included. Slide Review VERIFIED [facility] 12/13/2024 4:44 PM EDT 12/13/2024 4:44 PM EDT us Sanjuana Anderson MD LAB BLOOD ORDERABLES Final Result [facility] [address] [place] [address] [phone] * (ABNORMAL) CBC auto differential (12/13/2024 4:44 PM EDT) Only the most recent of3 resultswithin the time period is included. White Blood Count 5.3 4.8 - 10.8 X10*3/uL [facility] Red Blood Count 2.52(L) 4.20 - 5.50 X10*6/uL [facility] Hemoglobin 9.4(L) 12.0 - 16.0 g/dl [facility] Hematocrit 27.0(L) 37.0 - 47.0 % [facility] Mean Corpuscular Volume 107.1(H) 80.0 - 98.0 fL [facility] Mean Corpuscular Hemoglobin 37.3(H) 27.0 - 33.0 pg [facility] Mean Corpuscular HGB Conc 34.8 31.0 - 35.0 g/dl [facility] Red Cell Distribution Width 15.4 11.0 - 16.0 % [facility] Platelet Count 207 160 - 400 X10*3/uL [facility] Mean Platelet Volume 10.8 9.4 - 12.3 fL [facility] Neutrophils Percent Auto 22.9(L) 45 - 73 % [facility] Imm Gran Pct Auto 0.2 0.0 - 0.4 % [facility] Lymphocytes Percent Auto 61.9(H) 20 - 40 % [facility] Monocytes Percent Auto 14.0(H) 2 - 11 % [facility] Eosinophils Percent Auto 0.8 0 - 4 % [facility] Basophils Percent Auto 0.2 0 - 2 % [facility] NRBC Pct Auto 7.5(H) 0.0 - 0.2 /100WBC [facility] Neutrophils Absolute Auto 1.2(L) 2.0 - 8.3 x10*3/uL [facility] Imm Gran Abs Auto 0.01 0.00 - 0.03 X10*3/uL [facility] Lymphocytes Absolute Auto 3.3 1.2 - 4.9 X10*3/uL [facility] Monocytes Absolute Auto 0.7 0.1 - 1.2 X10*3/uL [facility] Eosinophils Absolute Auto 0.0 0.0 - 0.4 X10*3/uL [facility] Basophils Absolute Auto 0.0 0.0 - 0.2 X10*3/uL [facility] NRBC Abs Auto 0.400(H) 0.0 - 0.012 X10*3/uL [facility] Blood Venous blood specimen / Unknown 12/13/2024 4:44 PM EDT 12/13/2024 4:44 PM EDT us Sanjuana Anderson MD LAB BLOOD ORDERABLES Edite d Result - Final [facility] [address] [place] [address] [phone] * (ABNORMAL) Reticulocyte Count (12/13/2024 4:44 PM EDT) Only the most recent of2 resultswithin the time period is included. Reticulocytes Absolute 0.061 0.026 - 0.095 X10*6/uL [facility] Immature Retic Fraction 37.2(H) 3.0 - 15.9 % [facility] Retic HGB Equivalent 36.8(H) 30.0 - 35.0 pg [facility] Reticulocyte Percent 2.4(H) 0.5 - 1.8 % [facility] Blood Venous blood specimen / Unknown 12/13/2024 4:44 PM EDT 12/13/2024 4:44 PM EDT us Sanjuana Anderson MD LAB BLOOD ORDERABLES Final Result Performing Organization Address [facility] Co de Phone Number [facility] [address] [place] [address] [phone] * Antigen Identification (11/28/2024 8:55 PM EDT) Antigen Identification C^POSITIV E^3+ [facility] Antigen Identification E^POSITIV E^1+ [facility] Antigen Identification K^NEGATIV E^0 [facility] 11/28/2024 8:55 PM EDT 11/28/2024 9:01 PM EDT us Generic External Data Provider HISTORICAL/NON OR DERABLE LABS Final Result Performing Organization Address [place]/[facility] Co de Phone Number [facility] [address] [place] [address] [phone] * Red blood count (11/28/2024 8:55 PM EDT) Red Blood Cells: [id number] ON RC NOT AVAILABLE [id number] ON RC TRANSFUSED 11/28/24 2310 [id number] ON RC NOT AVAILABLE [facility] 11/28/2024 8:55 PM EDT 11/28/2024 9:01 PM EDT us Generic External Data Provider LAB BLOOD ORDERAB LES Final Result Performing Organization Address [facility] Co de Phone Number [facility] [address] [place] [address] [phone] * Type and screen (11/28/2024 8:55 PM EDT) Pathologist Luis Blood Type OP [facility] Antibody Screen NEGATIVE [facility] 11/28/2024 8:55 PM EDT 11/28/2024 9:01 PM EDT Narrative [facility] - 11/29/2024 3:51 PM EDT XMATCH. NOT ENOUGH SPECIMEN, UNRECEIVED SO NURSE CAN COLLECTAN EXTRA TUBE. Results at Issue Units as of 11/28/24 2311 ...Test View Group: Most Recent HGB HCT Results LABORATORYDate Time Test Result Flag Normal Range11/28/241949 HGB 8.4 L 12.0-16.0 g/dl11/28/241949 HCT 23.5 L 37.0-47.0 % No us Generic External Data Provider LAB BLOOD BANK TE ST ORDERABLES Final Result [facility] [address] [place] [address] [phone] * Magnesium (11/28/2024 7:50 PM EDT) Pathologist Luis Magnesium 2.3 1.6 - 2.6 mg/dL [facility] 11/28/2024 7:50 PM EDT 11/28/2024 7:56 PM EDT us Generic External Data Provider LAB BLOOD ORDERAB LES Final Result [facility] [address] [place] [address] [phone] * (ABNORMAL) Comprehensive Metabolic Panel (11/28/2024 7:50 PM EDT) Only the most recent of2 resultswithin the time period is included. Sodium 141 135 - 145 mmol/L [facility] Potassium 4.1 3.3 - 5.1 mmol/L [facility] Chloride 110(H) 96 - 108 mmol/L [facility] Carbon Dioxide 23 22 - 29 mmol/L [facility] Anion Gap 12 12 - 20 [facility] Urea Nitrogen (BUN) 12 9 - 16 mg/dL [facility] Creatinine, Serum 0.62 0.5 - 1.4 mg/dL [facility] Creatinine Clr Calc Pharmacy 95.3 [facility] Comment:Provided height and weight: 160.02 cm,51.6 kg.eGFR (calculated from the MDRD study equation) and eCrCl(calculated from the Cockcroft-Gault equation) are based ondifferent parameters and may not yield comparable results.If eCrCl result is absurd, please check patient'sheight/weight. Estimated Glomerular Filt Rate >60 [facility] Comment:Chronic Kidney Disea se: Estimated GFR < 60 mL/min/1.64e7Unlxuz Kidney Disease: Estimated GFR < 15 mL/min/1.73m2 Glucose 85 60 - 115 mg/dL [facility] Calcium 8.9 8.4 - 10.2 mg/dL [facility] Bilirubin, Total 0.7 0.0 - 1.0 mg/dL [facility] Aspartate Amino Transferase 45(H) 5 - 31 U/L [facility] Alanine Aminotransferase 28 0 - 31 U/L [facility] Total Protein 8.8(H) 6.5 - 8.0 g/dL [facility] Albumin Level 4.5 3.5 - 5.0 g/dL [facility] Alkaline Phosphatase 108 39 - 117 U/L [facility] 11/28/2024 7:50 PM EDT 11/28/2024 7:56 PM EDT us Generic External Data Provider LAB BLOOD ORDERAB LES Final Result Performing Organization Address [facility] Co de Phone Number [facility] [address] [place] [phone] * Pathologist Review - CBC (11/23/2024 4:49 PM EDT) Pathologist Review - CBC SEE NOTE [facility] Comment:- Anemia with sickle cells, target cells, macrocytosis,[place] bodies, anisocytosis and marked increase innucleated RBC's, features in keeping with patient's knownsickle cell anemia. Marrow stress is noted.- Leukopenia: consider infection vs drug/medication effectvs other etiologies.Reviewed by Maya Bland MD 11/23/2024 4:49 PM EDT 11/23/2024 4:49 PM EDT us Sanjuana Anderson MD LAB BLOOD ORDERABLES Final Result Performing Organization Address [place] de Phone Number [facility] [address] [place] [phone] * (ABNORMAL) CBC (11/23/2024 4:49 PM EDT) White Blood Count 4.5(L) 4.8 - 10.8 X10*3/uL [facility] Red Blood Count 1.91(L) 4.20 - 5.50 X10*6/uL [facility] Hemoglobin 7.2(L) 12.0 - 16.0 g/dl [facility] Hematocrit 20.0(LL) 37.0 - 47.0 % [facility] Comment:RESULTS OF HCT HARVEY D TO AND READ BACK BY DR ALEX CHENEY 11/23/24 AT 1724 BY GRADY. Mean Corpuscular Volume 104.7(H) 80.0 - 98.0 fL [facility] Mean Corpuscular Hemoglobin 37.7(H) 27.0 - 33.0 pg [facility] Mean Corpuscular HGB Conc 36.0(H) 31.0 - 35.0 g/dl [facility] Red Cell Distribution Width 18.9(H) 11.0 - 16.0 % [facility] Platelet Count 229 160 - 400 X10*3/uL [facility] Mean Platelet Volume 10.3 9.4 - 12.3 fL [facility] NRBC Pct Auto 50.2(H) 0.0 - 0.2 /100WBC [facility] NRBC Abs Auto 2.280(H) 0.0 - 0.012 X10*3/uL [facility] Blood Venous blood specimen / Unknown 11/23/2024 4:49 PM EDT 11/23/2024 4:49 PM EDT us Sanjuana Anderson MD LAB BLOOD ORDERABLES Final Result [facility] [address] [place] [phone] * (ABNORMAL) Basic Metabolic Panel (11/23/2024 4:49 PM EDT) Sodium 139 135 - 145 mmol/L [facility] Potassium 3.9 3.3 - 5.1 mmol/L [facility] Chloride 109(H) 96 - 108 mmol/L [facility] Carbon Dioxide 25 22 - 29 mmol/L [facility] Anion Gap 9(L) 12 - 20 [facility] Urea Nitrogen (BUN) 11 9 - 16 mg/dL [facility] Creatinine, Serum 0.64 0.5 - 1.4 mg/dL [facility] Estimated Glomerular Filt Rate >60 [facility] Comment:Chronic Kidney Disea se: Estimated GFR < 60 mL/min/1.08i7Chowyv Kidney Disease: Estimated GFR < 15 mL/min/1.73m2 Glucose 93 60 - 115 mg/dL [facility] Calcium 8.8 8.4 - 10.2 mg/dL [facility] Blood Venous blood specimen / Unknown 11/23/2024 4:49 PM EDT 11/23/2024 4:49 PM EDT Sanjuana Anderson MD LAB BLOOD ORDERABLES Final Result [facility] [address] [place] [address] [phone] * BI Mammogram Screening Tomosynthesis Bilateral (02/22/2024 2:30 PM EST) Anatomical Region Laterality Modality Breast Bilateral Mammography 02/22/2024 2:30 PM EST Narrative 03/03/2024 1:34 PM EST [facility] [address] [place] [address] Mammography Report Signed Patient: Pina Sullivan MR#: [id number] 3 : 1980 Acct:[id number] Age/Sex: 43 / F ADM Date: 02/22/24 Loc: HO.MAMMO Attending Dr: Sanjuana Anderson MD Ordering Physician: Sanjuana Anderson MD Results: 2B enign Findings Date of Service: 02/22/24 Follow Up: 1 Year From [facility] Mammogram Procedure(s): MM tomosynthesis screening BI Accession Number(s): [id number] cc: Sanjuana Anderson MD EXAMINATION: MM SCREENING [...] 03/03/24 1332 DD/ 1430 TD/TT: 02/22/24 1447 Pattern Attendant: Procedure Note Donotuseinterpreter, Image - 03/03/2024 [facility] [address] [place] [address] Mammography Report Signed Patient: Pina Sullivan DMR#: [id number] 3 : 1980Acct:[id number] Age/Sex: 43 / FADM Date: 02/22/24 Loc: HO.MAMMO Attending Dr: Sanjuana Anderson MD Ordering Physician: Sanjuana Anderson MDResults: 2B enign Findings Date of Service: 02/22/24Follow Up: 1 Year From Orig inal Mammogram Procedure(s): MM tomosynthesis screening BI Accession Number(s): [id number] cc: Sajnuana Anderson MD EXAMINATION: MM SCREENING DIGITAL BREAST [...] 03/03/24 1332 DD/ 1430 TD/TT: 02/22/24 1447 Pattern Attendant: Sanjuana Anderson MD IMG BI PROCEDURES Final Re sult * Pap Smear (07/05/2021) Swab 07/05/2021 Narrative Heidi Wells RN - 02/18/2022 10:36 AM EST Completed with Emmy Gonzalez MD at [facility] [place], see scanned report in care everywhere Historical Provider MD LAB CYTOLOGY ORDERABLES E dited Result - Final * HPV mRNA E6/E7 (04/08/2018 2:39 PM EST) HPV mRNA E6/E7 Not Detected NOT DETECTED [facility] Comment: This test was performed using the APTIMA(R) HPV Assay ([employer] This assay detects E6/E7 viral messenger RNA (mRNA) from 14 high-risk HPV types (16,18,31,33,35,39,45,51, 52,56,58,59,66,68). For additional information please refer to: http://education.[employer].Ekahau/faq/CII912l7 (This link is being provided for informational/ educational purposes only.) The analytical performance characteristics of this assay have been determined by [employer] [place], [place]. The modifications have not been cleared or approved by the FDA. This assay has been validated pursuant to the CLIA regulations and is used for clinical purposes. Test Performed by [facility], [employer] [place], [address] [place] [address] Timmy Jiménez M.D., Ph.D., Director of [employer] , [facility] [id number] Please note: Effective 11/19/2015, HPV testing will be performed using [employer] APTIMA test which targets mRNA. Detecting mRNA instead of DNA, as in older methods, offers significant improvements in specificity. 04/08/2018 2:39 PM EST Sanjuana Anderson MD HISTORICAL/NON ORDERABLE L ABS Final Result [facility] [address] [place] [address] * HM Hepatitis C Antibody (04/08/2018) Hepatitis C Antibody Nonreactive Blood Historical Provider HEALTH MAINTENANCE Final Result * HM HIV 1/2 Antigen and Antibody (04/08/2018) HIV Ag/Ab Nonreactive Historical Provider HEALTH MAINTENANCE Final Result from Last 3 Months or Most Recently Relevant to Health Maintenance Insurance [facility] C3 DENTAL-[facility] MEDICAID STAND ADULT Advance Directives Documents on File Type Date Recorded 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 Expl anation Advance Directives and Livin g Will 05/08/2023 1:40 PM HCP Care Teams Issuer Relationship Specialty Start Date End Date Justin, MD Sanjuana [address] [place] [address] PCP - General Family Medicine 03/09/18 Wen Gan MD [facility] for Hematology and Medical Oncology [address] [place] [address] Hematology and Oncology 01/27/24 Ebony Lal PsyD [facility] Krystina [facility] [address] [place] [address] Psychiatry 01/27/24 Shania Xiao MD [address] [place] [address], [address] [place], [place] [phone] Orthopaedic Surgery 01/27/24
--- OUTSIDE RECORDS SUMMARY | 2024-12-13 18:57 | XMS_ITS | Encounter Summary ---
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) (Primary Dx) Social [...] as of this encounter Plan of Treatment Upcoming Encounters Date Type Department Care Team (Late st Contact Info) Description 03/01/2025 10:30 AM EST Office Visit [facility] [address] [place] [address] Sanjuana Anderson MD [address] [place] [address] documented as of this encounter Visit Diagnoses Diagnosis 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) (HCC)- Primary 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 documented in this encounter Additional Health Concerns Assessment Noted Time PHQ-9 Depression Total Score: 11 024 3:25 PM EST documented as of this encounter Care Teams Die Attaching Machine Tender Relationship Specialty Start Date End Date Sanjuana Anderson MD [address] [place] [address] PCP - General Family Medicine 03/09/18 Wen Gan MD [facility] for Hematology and Medical Oncology [address] [place] [address] Hematology and Oncology 01/27/24 Ebony Lal PsyD [facility] Krystina Bld[facility] [address] [place] [address] Psychiatry 01/27/24 Shania Xiao MD [address] [place] [address], [place] [address] Orthopaedic Surgery 01/27/24 documented as of this encounter
--- OUTSIDE RECORDS SUMMARY | 2024-12-13 18:57 | XMS_ITS | Encounter Summary ---
Author Organization [employer] Address [address] [place] [address] 7t [place] [address] Care Team Providers Care Side Puller Name Role Phone Sanjuana Anderson MD Primary Care Provider +1- [phone] Reason for Visit * Reason Onset Date Comments triage 07/09/2022 Encounter Details Date Type Department Care Team ([facility] st Contact Info) Description 07/09/2022 Telephone [facility] 230 [place], [place] [phone] Sanjuana Anderson MD [address] [place], [place] [phone] triage Social History Tobacco Use Types Packs/Day [...] 07/09/2022 1:11 PM EDT Triage call with [place]pre[place] [id number] Pt reports since yesterday started with left [...] denies numbness, cough. Advised to come to [facility] today to be seen and Pt [...] acuity questions The caller accepted this outcome Andorran speaker documented in this encounter Plan of Treatment Upcoming Encounters Date Type Department Care Team (Late st Contact Info) Description 03/01/2025 10:30 AM EST Office Visit [facility] [address] [place] [address] Sanjuana Anderson MD [address] [place] [address] documented as of this encounter Visit Diagnoses Not on filedocumented in this encounter Additional Health Concerns Assessment Noted Time PHQ-9 Depression Total Score: 5 04/11/19 23 10:29 AM EST documented as of this encounter Care Teams Side Puller Relationship Specialty Start Date End Date Sanjuana Anderson MD [address] [place] [address] PCP - General Family Medicine 03/09/18 Wen Gan MD [facility] for Hematology and Medical Oncology [address] [place] [phone] Hematology and Oncology 01/27/24 Ebony [facility] PsyD [facility] [address] [place] [phone] Psychiatry 01/27/24 Shania Xiao MD [address] [address], [address] [place], [place] [phone] Orthopaedic Surgery 01/27/24 documented as of this encounter
--- OUTSIDE RECORDS SUMMARY | 2024-12-13 18:57 | XMS_ITS | Encounter Summary ---
Author Organization [employer] Address [address] [facility] 7t [place] [address] Care Team Providers Care Steam Blocker Name Role Phone Sanjuana Anderson MD Primary Care Provider +1- [phone] Reason for Visit * Reason Onset Date Comments PT1 04/19/2024 Encounter Details Date Type Department Care Team ([facility] Contact Info) Description 04/19/2024 Telephone [facility] [address] [place] [address] Sanjuana Anderson MD [address] [place] [address] PT1 Social History Tobacco Use Types Packs/Day [...] Y/N: Yes Provider name or facility name: [facility] - [address] [place], [place] [address] [place] [address] Escort needed: Y/N: Yes Do you have a wheelchair: Y/N: Yes If yes- Manual or electric: Manual Visits: (2x monthly) documented in this encounter Plan of Treatment Upcoming Encounters Date Type Department Care Team (Late st Contact Info) Description 03/01/2025 10:30 AM EST Office Visit [facility] [address] [place] [address] Sanjuana Anderson MD [address] [place] [address] documented as of this encounter Visit Diagnoses Not on filedocumented in this encounter Additional Health Concerns Assessment Noted Time PHQ-9 Depression Total Score: 11 024 3:25 PM EST documented as of this encounter Care Teams Steam Blocker Relationship Specialty Start Date End Date Sanjuana Anderson MD [address] [place] [address] PCP - General Family Medicine 03/09/18 Wen Gan MD [facility] for Hematology and Medical Oncology [address] [place] [address] Hematology and Oncology 01/27/24 Ebony Lal PsyD [facility] [address] [place] [address] Psychiatry 01/27/24 Shania Xiao MD [address] [place] [address], [place] [address] Orthopaedic Surgery 01/27/24 documented as of this encounter
--- OUTSIDE RECORDS SUMMARY | 2024-12-13 18:57 | XMS_ITS | Encounter Summary ---
Author Organization [employer] Address [address] [place] [address] 7t [place] [address] Care Team Providers Care Diamond Expert Name Role Phone Sanjuana Anderson MD Primary Care Provider +1- [phone] Reason for Visit * Reason Onset Date Comments Call Back Request 12/02/2024 Encounter Details Date Type Department Care Team ([facility] Contact Info) Description 12/02/2024 Telephone [facility] [address] [place] [address] Sanjuana Anderson MD [address] [place] [address] Call Back Request Social History Tobacco Use Types Packs/Day Years [...] Telephone Encounter - Barbara Garner RN - 12/02/2024 1:52 PM EDT Returned call to Dr. Gan at [facility] ([phone]), disability aide who pt follows for sickle cell anemia. Credit Rating Checker advised her to call Dr. Anderson directly at [phone] to discuss pt's case, Dr. Gan to call her afterward. She relayed message below that she will also tell Dr. Anderson: - She saw the patient this week and due to recent ER visit and labs, recommends dose decrease from 1500mg to hydroxyurea 1000mg (2 capsules daily). - asking for Dr Anderson to order repeat CBC with diff and reticulocyte for pt to complete 12/12/24 or 12/13/24. - pt is travelling to the [facility] [place] 12/16/24, Dr Gan would like labs faxed over when pt completes on dates above for her to review before pt travels to inform plan of care. Advised her will send message to Dr Anderson. * Telephone Encounter - Robert Tang - 12/02/2024 9:00 AM EDT Tc from Ever Hernandez with [facility] requesting a call back regarding pt labs and hydroxyurea treatment. Contact ever David at [phone] documented in this encounter Plan of Treatment Upcoming Encounters Date Type Department Care Team (Late st Contact Info) Description 03/01/2025 10:30 AM EST Office Visit [facility] [address] [place] [address] Sanjuana Anderson MD [address] [place] [address] documented as of this encounter Visit Diagnoses Not on filedocumented in this encounter Additional Health Concerns Assessment Noted Time PHQ-9 Depression Total Score: 11 024 3:25 PM EST documented as of this encounter Care Teams Diamond Expert Relationship Specialty Start Date End Date Sanjuana Anderson MD [address] [place] [address] PCP - General Family Medicine 03/09/18 Ever Gan MD [facility] for Hematology and Medical Oncology [address] [place] [phone] Hematology and Oncology 01/27/24 Eb[facility]yD [facility] [address] [place] [phone] Psychiatry 01/27/24 Shania Xiao MD [address] [facility] [address], [address] [place], [place] Orthopaedic Surgery 01/27/24 documented as of this encounter
--- OUTSIDE RECORDS SUMMARY | 2024-12-13 18:57 | XMS_ITS | Encounter Summary ---
Author Organization [employer] [facility] Address [address] [place] [address] 7 [place] [address] Care Team Providers Care Field Service Technician Name Role Phone Sanjuana Anderson MD Primary Care Provider +1- [phone] Encounter Details Date Type Department Care Team (Latest Contact Info) Description 10/13/2018 Abstract [facility] CONVERSIONS Dental, Provider, DDS Social History Tobacco [...] Upcoming Encounters Date Type Department Care Team ( st Contact Info) Description 03/01/2025 10:30 AM EST Office Visit [facility] MEDICINE [address] [place] [address] Sanjuana Anderson MD [address] [place] [address] documented as of this encounter Visit Diagnoses Not on filedocumented in this encounter Care Teams Field Service Technician Relationship Specialty Start Date End Date Sanjuana Anderson MD [address] [place] [address] PCP - General Family Medicine 03/09/18 Wen Gan MD [facility] for Hematology and Medical Oncology [address] [place] [address] Hematology and Oncology 01/27/24 Ebony Lal PsyD [facility] Krystina [facility] [address] [place] [address] [place] [address] Psychiatry 01/27/24 Shania Xiao MD [address] [place] [address], [place] [address] Orthopaedic Surgery 01/27/24 documented as of this encounter
--- OUTSIDE RECORDS SUMMARY | 2024-12-13 18:57 | XMS_ITS | Encounter Summary ---
Author Organization [employer] Address [address] [facility] 7t [place] [address] Care Team Providers Care Traffic Analyst Name Role Phone Sanjuana Anderson MD Primary Care Provider +1- [phone] Encounter Details Date Type Department Care Team (Late st Contact Info) Description 11/23/2024 Orders Only [facility] 230 [place], [place] [phone] Sanjuana Anderson MD [address] [place] [address] Sickle cell 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) (Primary [...] Description 03/01/2025 10:30 AM EST Office Visit [facility] 230 [place] [address] Sanjuana Anderson MD [address] [place] [address] documented as of this encounter Procedures Procedure [...] EDT) Pathologist Review - CBC SEE NOTE [facility] Comment:- Anemia with sickle cells, target cells, macrocytosis,Soriano[place] bodies, anisocytosis and marked increase innucleated RBC's, features in keeping with patient's knownsickle cell anemia. Marrow stress is noted.- Leukopenia: consider infection vs drug/medication effectvs other etiologies.Reviewed by Maya Bland MD 11/23/2024 4:49 PM EDT 11/23/2024 4:49 PM EDT Sanjuana Anderson MD LAB BLOOD ORDERABLES Final Result Performing Organization Address [facility]/ZIP Co de Phone Number [facility] [address] [place] [phone] * (ABNORMAL) Basic Metabolic Panel (11/23/2024 4:49 PM EDT) Sodium 139 135 - 145 mmol/L [facility] Potassium 3.9 3.3 - 5.1 mmol/L [facility] Chloride 109(H) 96 - 108 mmol/L [facility] Carbon Dioxide 25 22 - 29 mmol/L [facility] Anion Gap 9(L) 12 - 20 [facility] Urea Nitrogen (BUN) 11 9 - 16 mg/dL [facility] Creatinine, Serum 0.64 0.5 - 1.4 mg/dL [facility] Estimated Glomerular Filt Rate >60 [facility] Comment:Chronic Kidney Disea se: Estimated GFR < 60 mL/min/1.77i7Hdeoyz Kidney Disease: Estimated GFR < 15 mL/min/1.73m2 Glucose 93 60 - 115 mg/dL [facility] Calcium 8.8 8.4 - 10.2 mg/dL [facility] Blood Venous blood specimen / Unknown 11/23/2024 4:49 PM EDT 11/23/2024 4:49 PM EDT Sanjuana Anderson MD LAB BLOOD ORDERABLES Final Result Performing Organization Address [facility]/ZIP Co de Phone Number [facility] [address] [place] [phone] * (ABNORMAL) CBC (11/23/2024 4:49 PM EDT) White Blood Count 4.5(L) 4.8 - 10.8 X10*3/uL [facility] Red Blood Count 1.91(L) 4.20 - 5.50 X10*6/uL [facility] Hemoglobin 7.2(L) 12.0 - 16.0 g/dl [facility] Hematocrit 20.0(LL) 37.0 - 47.0 % [facility] Comment:RESULTS OF HCT HARVEY D TO AND READ BACK BY DR ALEX CHENEY 11/23/24 AT 1724 BY GRADY. Mean Corpuscular Volume 104.7(H) 80.0 - 98.0 fL [facility] Mean Corpuscular Hemoglobin 37.7(H) 27.0 - 33.0 pg [facility] Mean Corpuscular HGB Conc 36.0(H) 31.0 - 35.0 g/dl [facility] Red Cell Distribution Width 18.9(H) 11.0 - 16.0 % [facility] Platelet Count 229 160 - 400 X10*3/uL [facility] Mean Platelet Volume 10.3 9.4 - 12.3 fL [facility] NRBC Pct Auto 50.2(H) 0.0 - 0.2 /100WBC [facility] NRBC Abs Auto 2.280(H) 0.0 - 0.012 X10*3/uL [facility] Blood Venous blood specimen / Unknown 11/23/2024 4:49 PM EDT 11/23/2024 4:49 PM EDT us Sanjuana Anderson MD LAB BLOOD ORDERABLES Final Result [facility] [address] [place] [phone] documented in this encounter Visit Diagnoses Diagnosis Sickle cell 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) (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 documented in this encounter Additional Health Concerns Assessment Noted Time PHQ-9 Depression Total Score: 11 11/20/2 024 3:25 PM EST documented as of this encounter Care Teams Traffic Analyst Relationship Specialty Start Date End Date Sanjuana Anderson MD [address] [place] [address] PCP - General Family Medicine 03/09/18 Wen Gan MD [facility] for Hematology and Medical Oncology [address] [place] [address] Hematology and Oncology 01/27/24 Ebony Lal PsyD [facility] [address] [place] [address] Psychiatry 01/27/24 Shania Xiao MD [address] [place] [address], [place] [address] Orthopaedic Surgery 01/27/24 documented as of this encounter
--- OUTSIDE RECORDS SUMMARY | 2024-12-13 18:57 | XMS_ITS | Encounter Summary ---
Author Organization [employer] [facility] Address [address] [place] [address] 7 [place] [address] Care Team Providers Care Donor Specialist Name Role Phone Sanjuana Anderson MD Primary Care Provider +1- [phone] Encounter Details Date Type Department Care Team (Late Contact Info) Description 08/08/2022 Abstract [facility] [address] [place] [address] [phone] Sanjuana Anderson MD [address] [place] [address] [phone] Social History Tobacco Use Types Packs/Day Years [...] Encounters Date Type Department Care Team (Late Contact Info) Description 03/01/2025 10:30 AM EST Office Visit [facility] [address] [place] [address] [phone] Sanjuana Anderson MD [address] [place] [address] [phone] Pending Results Name Type Priority Associated Diagnoses Date /Time Mammography Imaging Routine 07/17/2022 documented as of this encounter Visit Diagnoses Not on filedocumented in this encounter Additional Health Concerns Assessment Noted Time PHQ-9 Depression Total Score: 5 04/11/19 23 10:29 AM EST documented as of this encounter Care Teams Donor Specialist Relationship Specialty Start Date End Date Sanjuana Anderson MD [address] [place] [address] PCP - General Family Medicine 03/09/18 Wen Gan MD [facility] for Hematology and Medical Oncology [address] [place] [address] Hematology and Oncology 01/27/24 Ebony Lal PsyD [facility] [address] [place] [address] Psychiatry 01/27/24 Shania Xiao MD 5 [facility] 4, [place] [address] Orthopaedic Surgery 01/27/24 documented as of this encounter
--- OUTSIDE RECORDS SUMMARY | 2024-12-13 18:57 | XMS_ITS | Encounter Summary ---
Author Organization [employer] [facility] Address [address] [place] [address] 7 [place] [address] Care Team Providers Care Patient Partner Name Role Phone Sanjuana Anderson MD Primary Care Provider +1- [phone] Encounter Details Date Type Department Care Team (Late Contact Info) Description 08/26/[address] [facility] MEDICINE [address] [place] [address] [phone] Sajnuana Anderson MD [address] [place] [address] [phone] Social History Tobacco Use Types Packs/Day Years [...] 03/01/2025 10:30 AM EST Office Visit [facility] MEDICINE [address] [place] [address] [phone] Sanjuana Anderson MD [address] [place] [address] [phone] documented as of this encounter Procedures Procedure Name Priority Date/Time Associated Diagnosis Comments MAMMOGRAPHY Routine 08/26/2022 11:44 AM EDT MAMMOGRAPHY Routine 08/19/2022 4:04 PM EDT documented in this encounter Results * Hm Mammography (08/26/2022 11:44 AM EDT) HM Mammogram Birads -2 Anatomical Region Laterality Modality Other Historical Provider MD HEALTH MAINTENANCE Final Result * Mammography (08/19/2022 4:04 PM EDT) HM Mammogram Birads 2 Anatomical Region Laterality Modality Other Narrative 08/19/2022 4:04 PM EDT Recommended routine annual screening Historical Provider HEALTH MAINTENANCE Final Result documented in this encounter Visit Diagnoses Not on filedocumented in this encounter Additional Health Concerns Assessment Noted Time PHQ-9 Depression Total Score: 5 04/11/19 23 10:29 AM EST documented as of this encounter Care Teams Patient Partner Relationship Specialty Start Date End Date Sanjuana Anderson MD [address] [place] [address] PCP - General Family Medicine 03/09/18 Wen Gan MD [facility] for Hematology and Medical Oncology [address] [place] [address] Hematology and Oncology 01/27/24 Ebony Lal PsyD [facility]e Krystina [facility] [address] [place] [address] Psychiatry 01/27/24 hSania Xiao MD [address] [place] [address], [place] [address] Orthopaedic Surgery 01/27/24 documented as of this encounter
--- OUTSIDE RECORDS SUMMARY | 2024-12-13 18:57 | XMS_ITS | Encounter Summary ---
Author Organization [employer] [facility] Address [address] [place] [address] 7t [place] [address] Care Team Providers Care Blankbook Stitching Machine Operator Name Role Phone Sanjuana Anderson MD Primary Care Provider +1- [phone] Encounter Details Date Type Department Care Team (Late Contact Info) Description 04/16/2022 Abstract [facility] MEDICINE [address] [place] [phone] Sanjuana Anderson MD [address] [place] [address] Social History Tobacco Use Types Packs/Day Years [...] 03/01/2025 10:30 AM EST Office Visit [facility] [address] [place] [address] Sanjuana Anderson MD [address] [place] [address] documented as of this encounter Procedures Procedure Name Priority Date/Time Associated Diagnosis Comments MAMMOGRAPHY Routine 02/07/2022 documented in this encounter Results * Mammography (02/07/2022) HM Mammogram pefrom Anatomical Region Laterality Modality Other us Historical Provider HEALTH MAINTENANCE Final Result documented in this encounter Visit Diagnoses Not on filedocumented in this encounter Additional Health Concerns Assessment Noted Time PHQ-9 Depression Total Score: 5 04/11/19 23 10:29 AM EST documented as of this encounter Care Teams Blankbook Stitching Machine Operator Relationship Specialty Start Date End Date Sanjuana Anderson MD [address] [place] [address] PCP - General Family Medicine 03/09/18 Wen Gan MD [facility] for Hematology and Medical Oncology [address] [place] [phone] Hematology and Oncology 01/27/24 Ebony [facility] Ps[facility]D [facility] [address] [place] [phone] Psychiatry 01/27/24 Shania Xiao MD [address] [address], [address] [place], [place] [phone] Orthopaedic Surgery 01/27/24 documented as of this encounter
--- OUTSIDE RECORDS SUMMARY | 2024-12-13 18:57 | XMS_ITS | Encounter Summary ---
Author Organization [employer] Address [address] [facility] 7t [place] [address] Care Team Providers Care Recyclable Products Sorter Name Role Phone Sanjuana Anderson MD Primary Care Provider +1- [phone] Encounter Details Date Type Department Care Team ([facility] st Contact Info) Description 12/13/2024 Orders Only [facility] [address] [place], [place] [phone] Sanjuana Anderson MD [address] [place] [address] Social History Tobacco Use Types Packs/Day Years [...] Description 03/01/2025 10:30 AM EST Office Visit [facility] [address] [place] [address] Sanjuana Anderson MD [address] [place] [address] documented as of this encounter Procedures Procedure Name Priority Date/Time Associated Diagnosis Comments SLIDE REVIEW Routine 12/13/2024 4:44 PM EDT documented in this encounter Results * Slide Review (12/13/2024 4:44 PM EDT) Slide Review VERIFIED [facility] 12/13/2024 4:44 PM EDT 12/13/2024 4:44 PM EDT us Sanjuana Anderson MD LAB BLOOD ORDERABLES Final Result [facility] [address] [place] [address] [phone] documented in this encounter Visit Diagnoses Not on filedocumented in this encounter Additional Health Concerns Assessment Noted Time PHQ-9 Depression Total Score: 11 024 3:25 PM EST documented as of this encounter Care Teams Recyclable Products Sorter Relationship Specialty Start Date End Date Sanjuana Anderson MD [address] [place] [address] PCP - General Family Medicine 03/09/18 Wen Gan MD [facility] [address] [address] Hematology and Oncology 01/27/24 Ebony Lal PsyD [facility] K[facility]ina [facility] [address] [place] [address] Psychiatry 01/27/24 Shania Xiao MD [address] [place] [address], [place] [address] Orthopaedic Surgery 01/27/24 documented as of this encounter
--- OUTSIDE RECORDS SUMMARY | 2024-12-13 18:57 | XMS_ITS | Encounter Summary ---
Author Organization [employer] Address [address] [facility] 7t [place] [address] Care Team Providers Care Insurance Auditor Name Role Phone Sanjuana Anderson MD Primary Care Provider +1- [phone] Encounter Details Date Type Department Care Team (Late st Contact Info) Description 05/31/2024 Orders Only [facility] [address] [place], [place] [phone] Sanjuana Anderson MD [address] [place] [address] Sickle cell anemia with crisis (CMS/HCC) (Primary [...] 10:30 AM EST Office Visit [facility] [address] [place] [address] Sanjuana Anderson MD [address] [place] [address] documented as of this encounter Visit Diagnoses Diagnosis 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 documented in this encounter Additional Health Concerns Assessment Noted Time PHQ-9 Depression Total Score: 11 024 3:25 PM EST documented as of this encounter Care Teams Insurance Auditor Relationship Specialty Start Date End Date Sanjuana Anderson MD [address] [place] [address] PCP - General Family Medicine 03/09/18 Wen Gan MD [facility] [address] [place] [address] Hematology and Oncology 01/27/24 Ebony Lal PsyD [facility] Krystina Padron [address] [place] [address] Psychiatry 01/27/24 Shania Xiao MD [address] [place] [address], [place] [address] Orthopaedic Surgery 01/27/24 documented as of this encounter
--- OUTSIDE RECORDS SUMMARY | 2024-12-13 18:57 | XMS_ITS | Encounter Summary ---
Author Organization [employer] [facility] Address [address] [place] [address] 7 [place] [address] Care Team Providers Care Support Services Coordinator Name Role Phone Sanjuana Anderson MD Primary Care Provider +1- [phone] Encounter Details Date Type Department Care Team (Latest Contact Info) Description 10/12/2020 Abstract [facility] CONVERSIONS Dental, Provider, DDS Social [...] Description 03/01/2025 10:30 AM EST Office Visit [facility] MED[facility]INE [address] [place] [address] Sanjuana Anderson MD [address] [place] [address] documented as of this encounter Visit Diagnoses Not on filedocumented in this encounter Care Teams Support Services Coordinator Relationship Specialty Start Date End Date Sanjuana Anderson MD [address] [place] [address] PCP - General Family Medicine 03/09/18 Wen Gan MD [facility] [address] [place] [address] Hematology and Oncology 01/27/24 Ebony Lal PsyD [facility] Krystina Padron [address] [place] [address] Psychiatry 01/27/24 Shania Xiao MD [address] [place] [address], [place] [address] Orthopaedic Surgery 01/27/24 documented as of this encounter
--- OUTSIDE RECORDS SUMMARY | 2024-12-13 18:57 | XMS_ITS | Encounter Summary ---
Author Organization [employer] Address [address] [facility] 7t [place] [address] Care Team Providers Care Film Cleaner Name Role Phone Sanjuana Anderson MD Primary Care Provider +1- [phone] Reason for Visit * Reason Onset Date Comments Referral 10/25/2024 Encounter Details Date Type Department Care Team ([facility] st Contact Info) Description 10/25/2024 Telephone [facility] [address] [place], [place] [phone] Sanjuana Anderson MD [address] [place], [place] [phone] Referral Social History Tobacco Use Types Packs/Day [...] Telephone call to pt via [employer] #[id number]. Pt reports hitting her leg several months [...] besides PCP, states she will go to [facility]. Reviewed hrs, extended clinic/Thursday clinic, advised first come first serve. Pt also asked if comber tender Dr Gan called to notify about need for repeat labs. Advised her yes, PCP aware and ordered labs, she can do at [facility] or [facility]. Pt states she was told to do these in 2 weeks, advised her hematology stated to us 1 month (mid Nov), advised pt to call their office for clarification. Pt verbalized understanding, no further questions. * Telephone Encounter - Josefina Fam - 10/25/2024 10:22 AM EDT Tc from pt requesting a referral to a orthopedic surgeon , Dr. Xiao [address] [place] [address] 4th [address],[place] [address] Contact pt at [phone] documented in this encounter Plan of Treatment Upcoming Encounters Date Type Department Care Team (Late st Contact Info) Description 03/01/2025 10:30 AM EST Office Visit [facility] [address] [place] [address] Sanjuana Anderson MD [address] [place] [address] documented as of this encounter Visit Diagnoses Not on filedocumented in this encounter Additional Health Concerns Assessment Noted Time PHQ-9 Depression Total Score: 11 024 3:25 PM EST documented as of this encounter Care Teams Film Cleaner Relationship Specialty Start Date End Date Sanjuana Anderson MD [address] [place] [address] PCP - General Family Medicine 03/09/18 Wen Gan MD [facility] [address] [place] [phone] Hematology and Oncology 01/27/24 Ebony Lal PsyD [facility] [address] [place] [phone] Psychiatry 01/27/24 Shania Xiao MD [address] [facility] [address], [place] [address] Orthopaedic Surgery 01/27/24 documented as of this encounter
== END 2024-12-13 16:39 | disposition home or self-care (01) ==
LOC: HO.LAB 16:38
PROVIDERS: PCP Family Medicine; Visit Provider Family Medicine
DX: D57.1 Sickle-cell disease without crisis (principal)
CPT/HCPCS: 36415; 85025; 85045

== ENCOUNTER 2025-02-24 15:37 | Outpatient (REF) | payer MEDICAID, SELFPAY ==
--- NOTE | ~2025-02-24 | MM_ITS ---
EXAMINATION: MM SCREENING DIGITAL BREAST TOMOSYNTHESIS, BILATERAL CLINICAL INFORMATION: Screening. Asymptomatic. COMPARISON: Mammography: Comparison is made with available priors TECHNIQUE: Digital breast mammography with tomosynthesis is performed in both the craniocaudal and mediolateral oblique views along with computer-aided detection (CAD). FINDINGS: The breasts are heterogeneously dense, which may obscure small masses. Right marker clip. There are no significant masses, abnormal calcifications, or other abnormalities. MM/MM tomosynthesis screening BI IMPRESSION: No mammographic evidence of malignancy. ASSESSMENT: BI-RADS Category 2: Benign RECOMMENDATION: Routine annual mammography screening. 1 year F/U This examination should not preclude the clinical evaluation of a suspicious palpable abnormality. This patient's information was entered into a reminder system with a target due date for their next mammogram. Electronically signed by: Trinity Eckert DO 02/28/2025 04:24 PM NORA
--- OUTSIDE RECORDS SUMMARY | 2025-02-24 16:36 | XMS_ITS | Encounter Summary ---
Author Organization [employer] [facility] Address [address] [place] [address] 7t [place] [address] Care Team Providers Care Chief Engineer Drilling And Recovery Name Role Phone Sanjuana Anderson MD Primary Care Provider +1- [phone] Encounter Details Date Type Department Care Team (Late Contact Info) Description 04/16/2022 Abstract [facility] [address] [place] [address] Sanjuana Anderson MD [address] [place] [address] Social History Tobacco Use Types Packs/Day Years [...] Description 03/01/2025 10:30 AM EST Office Visit [facility] [address] [place] [address] Sanjuana Anderson MD [address] [place] [address] documented as of this encounter Procedures Procedure [...] documented as of this encounter Care Teams Chief Engineer Drilling And Recovery Relationship Specialty Start Date End Date Sanjuana Anderson MD [address] [place] [address] PCP - General Family Medicine 03/09/18 Wen Gan MD [facility] [address] [place] [phone] Hematology and Oncology 01/27/24 Ebony Lal PsyD [facility] [address] [place] [phone] Psychiatry 01/27/24 Shania Xiao MD [address] [address], [address] [place], [place] [phone] Orthopaedic Surgery 01/27/24 documented as of this encounter
--- OUTSIDE RECORDS SUMMARY | 2025-02-24 16:36 | XMS_ITS | Encounter Summary ---
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) (Primary Dx) [...] Description 03/01/2025 10:30 AM EST Office Visit [facility] [address] [place] [address] Sanjuana Anderson MD [address] [place] [address] documented as of this encounter Visit Diagnoses Diagnosis 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) (HCC)- Primary 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 documented in this encounter Additional Health Concerns Assessment Noted Time PHQ-9 Depression Total Score: 11 024 3:25 PM EST documented as of this encounter Care Teams Gas Controller Relationship Specialty Start Date End Date Sanjuana Anderson MD [address] [place] [address] PCP - General Family Medicine 03/09/18 Wen Gan MD [facility] [address] [place] [address] Hematology and Oncology 01/27/24 Ebony Lal PsyD [facility] [address] [place] [address] Psychiatry 01/27/24 Shania Xiao MD [address] [place] [address], [place] [address] Orthopaedic Surgery 01/27/24 documented as of this encounter
--- OUTSIDE RECORDS SUMMARY | 2025-02-24 16:36 | XMS_ITS | Clinical Summary ---
Author Organization [employer] Address [address] [place] [address] 7[address] [place] [address] Care Team Providers Care Blunger Machine Operator Name Role Phone Sanjuana Anderson MD Primary Care Provider [phone]- [phone] Allergies Active Allergy Reactions Criticality Noted Date [...] SEE ATTACHED FOR DETAILED DIRECTIONS 3 Active hydroxyurea (Hydrea) 500 MG capsuleIndicatio ns:Sickle [...] A DAY 180 tablet 3 5 Active Acetaminophen Extra Strength 500 MG tablet TAKE 1 TO 2 TABLET BY ORAL ROUTE EVERY 6 HOURS FOR 4 DAYS, THEN NEEDED 60 tablet 1 5 Active Active Problems Problem Noted Date [...] - Followed by Dr. Dario Miller of [facility] -dental home is - [facility] -Health care proxy filsed 05/06/23 Assessment & Plan (01/27/2024 3:41 PM EST): -next physical exam due after 01/27/24 - Followed by Dr. Dario Miller of [facility] -dental [place] - [facility] -Health care proxy filsed 05/06/23 Assessment [...] [facility] [place]. Followed by [facility] as well as orthopedics in [place]. Pain meds to be prescribed by me including oxycodone 10mg bid prn which she uses sparingly and acetaminophen with codeine which she uses sparingly for moderate pain. She declined refill today. -continue Hydroxyurea and folic acid. -Followed with Dr. Bajwa and [facility] -Pt had right shoulder hemiarthroplasty surgery 09/18/2022 and is doing well. -seen by hematology in [place] 07/05/24, follow up 3 months - Maintain hydration throughout the day - Discussed hydrea adherence - Continue chronic medications as prescribed -seen 10/17/[address] consultant [address] Wen Gan at [phone]. She wanted to give Dr Anderson an update after recent 10/17/24 visit with the pt. - increased hydroxyurea to 1500mg daily (3 tabs/day). - would like for PCP to order CMP and CBC w/ diff for pt to complete in 1 month to see how she is tolerating it. (Requesting this from PCP because pt lives in [place]). - She requests fax with lab results to be sent to [facility] in 1 month for her to review to see how pt is tolerating increased dose - she will recheck hemoglobin electrophoresis at pt's next hematology appt in 3 months Assessment & Plan (01/27/2024 3:40 PM EST): Stable. Continue with oncologist Dr Bajwa and [facility] [place]. Followed by [facility] as well as orthopedics in [place]. Pain meds to be prescribed by me including oxycodone 10mg bid prn which she uses sparingly and acetaminophen with codeine which she uses sparingly for moderate pain. She declined refill today. -continue Hydroxyurea and folic acid. -Followed with Dr. Bajwa and [facility] -Pt had right shoulder hemiarthroplasty surgery 09/18/2022 and is doing well. Assessment & Plan (05/06/2023 3:42 PM EST): Jonathan. Continue with oncologist Dr Bajwa and [facility] [place]. Followed by [facility] as well as orthopedics in [place]. Pain meds to be prescribed by me including oxycodone 10mg bid prn which she uses sparingly and acetaminophen with codeine which she uses sparingly for moderate pain. She declined refill today. -continue Hydroxyurea and folic acid. -Followed with Dr. Bajwa and [facility] -Pt had right shoulder hemiarthroplasty surgery 09/18/2022 and is doing well. Assessment & Plan (11/03/2022 9:45 AM EDT): Jonathan. Continue with oncologist Dr Bajwa and [facility] [place]. Followed by [facility] as well as orthopedics in [place]. Pain meds to be prescribed by me including oxycodone 10mg bid prn which she uses sparingly and acetaminophen with codeine which she uses sparingly for moderate pain. She declined refill today. -continue Hydroxyurea and folic acid. -Followed with Dr. 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 Continue with oncologist Dr Bajwa and [facility] [place]. Followed by [facility] as well as orthopedics in [place]. Pain meds to be prescribed by me including oxycodone 10mg bid prn which she uses sparingly and acetaminophen with codeine which she uses sparingly for moderate pain. She declined refill today. -continue Hydroxyurea and folic acid. -Followed with Dr. Bajwa and [facility] -she plans to have surgery of [...] knows I can prescribe oxycodone as needed. Recurrent major depressive disorder, in partial remission 07/25/2011 Overview (10/05/2023): -Followed by Ebony Lal PsyD Licensed Clinical Psychologist in [place] through sickle cell clinic, note from 10/01/23 reviewed. Assessment & Plan (05/06/2023 3:40 PM EST): -Followed by Ebony Lal PsyD Licensed Clinical Psychologist in [place] through sickle cell clinic Encounters Date Type Department Care Team Description 02/20/2025 Patient Outreach [address] [address] Sanjuana Anderson MD Pre-visit Planning (Pre-visit planning - LVM ) 12/14/2024 Results Follow-Up [facility] [address] [place] [address] [phone] Sanjuana Andreson MD CBC auto differential, Reticulocyte Count 12/14/2024 Refill [facility] [address] [place] [address] [phone] Carlene Hylton MD 12/13/2024 Orders Only [address] [address] Sanjuana Anderson MD 12/05/2024 Orders Only [address] [address] Sanjuana Anderson MD Sickle cell disease without crisis ([facility]) (Primary Dx) 12/02/2024 Travel 12/02/[address] [address] Sanjuana Anderson MD Decemebr Recalls 12/02/2024 Orders Only [address] [address] Sanjuana Anderson MD 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 ([facility]) (Primary Dx) 12/02/[address] [address] Sanjuana Anderson MD Call Back Request 11/30/2024 Results Follow-Up [address] [address] Sanjuana Anderson MD CBC auto differential, Comprehensive Metabolic Panel, Magnesium, Additional followed-up results: 5 11/28/2024 Orders Only GENERIC EXTERNAL DATA DEPARTMENT Provider, Generic External Data from Last 3 Months Immunizations Immunization Administration [...] is your housing situation today? I have amiabdias cano 04/28/[address] you [...] 03/01/2025 10:30 AM EST Office Visit [facility] [address] [place] [address] Sanjuana Anderson MD [address] [place] [address] Health Maintenance Due Date Last Done Comments Dental Oral Exam 1980 Dental X-Ray: Bitewings 1981 Disability Screening 1980 Meningococcal B Vaccine (1 of 4 - Increased Risk) 07/11/1991 Alcohol/Substance Use Screening 1993 Family Planning (PISQ) 1996 Dental Prophylaxis 08/19/2022 02/17/2022 SDOH Screening 04/28/2024 04/28/2023 Depression Monitoring 07/26/2024 01/27/2024, 024 COVID-19 Vaccine ( season) 2024 05/06/2023, 05/08/2022, 01/28/2021, Additional history exists Influenza Vaccine (#1) 2024 , 12/29/2022, 12/03/2021, Additional history exists Tobacco Screening 10/31/2025 10/31/2024 Mammogram 02/21/2026 02/22/2024, 02/06, 08/26/2022, Additional history exists Cervical Cancer Screening 07/05/2026 HPV/Cotest 07/05/2026 04/08/2018 Pap Smear 07/05/2026 07/05/2021 Dental X-Ray: Full Mouth 11/02/2026 11/02/2023 Meningococcal Vaccine (3 - Risk 2-dose series) 01/26/2029 01/27/2024, 05/06/2023, 11/03/2022 Zoster Vaccines (1 of 2) 07/11/2031 DTaP/Tdap/Td Vaccines (4 - Td or Tdap) 11/05/2033 11/06/2023, 02/03/2022, 11/14/2011, Additional history exists RSV Patients and Patients Aged 60 years or older (1 - 1-dose 75+ series) 2056 Hepatitis B Vaccines Completed 09/23/2007, 05/20/2007, 04/14/2007 HPV Vaccines Completed 12/21/2007, 07/07, 06/16/2007 HIV Screening Completed 04/08/2018 Hepatitis C Screening Completed 04/08/2018 Pneumococcal Vaccine: [...] AUTO DIFFERENTIAL Routine 11/28/2024 7:50 PM EDT BI MAMMOGRAM SCREENING TOMOSYNTHESIS BILATERAL Routine 02/22/2024 [...] of2 resultswithin the time period is included. Slide Review VERIFIED [facility] 12/13/2024 4:44 PM EDT 12/13/2024 4:44 PM EDT Sanjuana Anderson MD LAB BLOOD ORDERABLES Final Result [facility] [address] [place] [address] [phone] * (ABNORMAL) CBC auto differential (12/13/2024 4:44 PM EDT) Only the most recent of2 resultswithin the time period is included. Pathologist [facility] White Blood Count 5.3 4.8 - 10.8 X10*3/uL [facility] Red Blood Count 2.52(L) 4.20 - 5.50 X10*6/uL [facility] Hemoglobin 9.4(L) 12.0 - 16.0 g/dl [facility] Hematocrit 27.0(L) 37.0 - 47.0 % [facility] Mean Corpuscular Volume 107.1(H) 80.0 - 98.0 fL [facility] Mean Corpuscular Hemoglobin 37.3(H) 27.0 - 33.0 pg [facility] Mean Corpuscular HGB Conc 34.8 31.0 - 35.0 g/dl [facility] Red Cell Distribution Width 15.4 11.0 - 16.0 % [facility] Platelet Count 207 160 - 400 X10*3/uL [facility] Mean Platelet Volume 10.8 9.4 - 12.3 fL [facility] Neutrophils Percent Auto 22.9(L) 45 - 73 % [facility] Imm Gran Pct Auto 0.2 0.0 - 0.4 % [facility] Lymphocytes Percent Auto 61.9(H) 20 - 40 % [facility] Monocytes Percent Auto 14.0(H) 2 - 11 % [facility] Eosinophils Percent Auto 0.8 0 - 4 % [facility] Basophils Percent Auto 0.2 0 - 2 % [facility] NRBC Pct Auto 7.5(H) 0.0 - 0.2 /100WBC [facility] Neutrophils Absolute Auto 1.2(L) 2.0 - 8.3 x10*3/uL [facility] Imm Gran Abs Auto 0.01 0.00 - 0.03 X10*3/uL [facility] Lymphocytes Absolute Auto 3.3 1.2 - 4.9 X10*3/uL [facility] Monocytes Absolute Auto 0.7 0.1 - 1.2 X10*3/uL [facility] Eosinophils Absolute Auto 0.0 0.0 - 0.4 X10*3/uL [facility] Basophils Absolute Auto 0.0 0.0 - 0.2 X10*3/uL [facility] NRBC Abs Auto 0.400(H) 0.0 - 0.012 X10*3/uL [facility] Blood Venous blood specimen / Unknown 12/13/2024 4:44 PM EDT 12/13/2024 4:44 PM EDT Sanjuana Anderson MD LAB BLOOD ORDERABLES Edite d Result - Final [facility] [address] [place] [address] [phone] * (ABNORMAL) Reticulocyte Count (12/13/2024 4:44 PM EDT) Only the most recent of2 resultswithin the time period is included. Reticulocytes Absolute 0.061 0.026 - 0.095 X10*6/uL [facility] Immature Retic Fraction 37.2(H) 3.0 - 15.9 % [facility] Retic HGB Equivalent 36.8(H) 30.0 - 35.0 pg [facility] Reticulocyte Percent 2.4(H) 0.5 - 1.8 % [facility] Blood Venous blood specimen / Unknown 12/13/2024 4:44 PM EDT 12/13/2024 4:44 PM EDT Sanjuana Anderson MD LAB BLOOD ORDERABLES Final Result Performing Organization Address [facility] de Phone Number [facility] [address] [place] [phone] * Antigen Identification (11/28/2024 8:55 PM EDT) Antigen Identification C^POSITIV E^3+ [facility] Antigen Identification E^POSITIV E^1+ [facility] Antigen Identification K^NEGATIV E^0 [facility] 11/28/2024 8:55 PM EDT 11/28/2024 9:01 PM EDT Generic External Data Provider HISTORICAL/NON OR DERABLE LABS Final Result Performing Organization Address [facility] de Phone Number [facility] [address] [place] [phone] * Red blood count (11/28/2024 8:55 PM EDT) Red Blood Cells: [id number] ON RC NOT AVAILABLE [id number] ON RC TRANSFUSED 11/28/24 2310 [id number] ON RC NOT AVAILABLE [facility] 11/28/2024 8:55 PM EDT 11/28/2024 9:01 PM EDT Generic External Data Provider LAB BLOOD ORDERAB LES Final Result Performing Organization Address [facility] de Phone Number [facility] [address] [place] [phone] * Type and screen (11/28/2024 8:55 PM EDT) Blood Type OP [facility] Antibody Screen NEGATIVE [facility] 11/28/2024 8:55 PM EDT 11/28/2024 9:01 PM EDT Narrative [facility] - 11/29/2024 3:51 PM EDT XMATCH. NOT ENOUGH SPECIMEN, UNRECEIVED SO NURSE CAN COLLECTAN EXTRA TUBE. Results at Issue Units as of 11/28/241 ...Test View Group: Most Recent HGB HCT Results LABORATORYDate Time Test Result Flag Normal Range11/28/241949 HGB 8.4 L 12.0-16.0 g/dl11/28/241949 HCT 23.5 L 37.0-47.0 % No Generic External Data Provider LAB BLOOD BANK TE ST ORDERABLES Final Result Performing Organization Address [facility] de Phone Number [facility] [address] [place] [phone] * Magnesium (11/28/2024 7:50 PM EDT) Pathologist [facility] Magnesium 2.3 1.6 - 2.6 mg/dL [facility] 11/28/2024 7:50 PM EDT 11/28/2024 7:56 PM EDT [employer] External Data Provider LAB BLOOD ORDERAB LES Final Result Performing Organization Address [facility] de Phone Number [facility] [address] [place] [address] [phone] * (ABNORMAL) Comprehensive Metabolic Panel (11/28/2024 7:50 PM EDT) Pathologist [facility] Sodium 141 135 - 145 mmol/L [facility] Potassium 4.1 3.3 - 5.1 mmol/L [facility] Chloride 110(H) 96 - 108 mmol/L [facility] Carbon Dioxide 23 22 - 29 mmol/L [facility] Anion Gap 12 12 - 20 [facility] Urea Nitrogen (BUN) 12 9 - 16 mg/dL [facility] Creatinine, Serum 0.62 0.5 - 1.4 mg/dL [facility] Creatinine Clr Calc Pharmacy 95.3 [facility] Comment:Provided height and weight: 160.02 cm,51.6 kg.eGFR (calculated from the MDRD study equation) and eCrCl(calculated from the Cockcroft-Gault equation) are based ondifferent parameters and may not yield comparable results.If eCrCl result is absurd, please check patient'sheight/weight. Estimated Glomerular Filt Rate >60 [facility] Comment:Chronic Kidney Disea se: Estimated GFR < 60 mL/min/[id number] Kidney Disease: Estimated GFR < 15 mL/min/1.73m2 Glucose 85 60 - 115 mg/dL [facility] Calcium 8.9 8.4 - 10.2 mg/dL [facility] Bilirubin, Total 0.7 0.0 - 1.0 mg/dL [facility] Aspartate Amino Transferase 45(H) 5 - 31 U/L [facility] Alanine Aminotransferase 28 0 - 31 U/L [facility] Total Protein 8.8(H) 6.5 - 8.0 g/dL [facility] Albumin Level 4.5 3.5 - 5.0 g/dL [facility] Alkaline Phosphatase 108 39 - 117 U/L [facility] 11/28/2024 7:50 PM EDT 11/28/2024 7:56 PM EDT us Generic External Data Provider LAB BLOOD ORDERAB LES Final Result [facility] [address] [place] [phone] [phone] * BI Mammogram Screening Tomosynthesis Bilateral (02/22/2024 2:30 PM EST) Anatomical Region Laterality Modality Breast Bilateral Mammography 02/22/2024 2:30 PM EST Narrative 03/03/2024 1:34 PM EST [facility] [address] [place], [place] [address] Mammography Report Signed Patient: Pina Sullivan MR#: [id number] 3 : 1980 Acct:[id number] Age/Sex: 43 / F ADM Date: 02/22/24 Loc: HO.MAMMO Attending Dr: Sanjuana Anderson MD Ordering Physician: Sanjuana Anderson MD Results: 2B enign Findings Date of Service: 02/22/24 Follow Up: 1 Year From Orig inal Mammogram Procedure(s): MM tomosynthesis screening BI Accession Number(s): [id number] cc: Sanjuana Anderson MD EXAMINATION: MM SCREENING [...] 03/03/24 1332 DD/ 1430 TD/TT: 02/22/24 1447 Pre Billing Specialist: Procedure Note Donotuseinterpreter, Image - 03/03/2024 [facility] [address] [place], [place] [address] Mammography Report Signed Patient: Pina Sullivan DMR#: [id number] 3 : 1980Acct:[id number] Age/Sex: 43 / FADM Date: 02/22/24 Loc: HO.MAMMO Attending Dr: Sanjuana Anderson MD Ordering Physician: Sanjuana Anderson MDResults: 2B enign Findings Date of Service: 02/22/24Follow Up: 1 Year From Orig inal Mammogram Procedure(s): MM tomosynthesis screening BI Accession Number(s): [id number] cc: Sanjuana Anderson MD EXAMINATION: MM SCREENING [...] by: Trinity Eckert DO 03/03/2024 01:32 PM [facility] Dictated By: Trinity Eckert DO Signed By: <Electronically signed by Trinity Eckert DO in OV> 03/03/24 1332 DD/ 1430 TD/TT: 02/22/24 1447 Pre Billing Specialist: Sanjuana Anderson MD IMG BI PROCEDURES Final Re sult * Pap Smear (07/05/2021) Swab 07/05/2021 Narrative Heidi Wells RN - 02/18/2022 10:36 AM EST Completed with Emmy Gonzalez MD at [facility], see scanned report in care everywhere us Historical Provider MD LAB CYTOLOGY ORDERABLES E dited Result - Final * HPV mRNA E6/E7 (04/08/2018 2:39 PM EST) HPV mRNA E6/E7 Not Detected NOT DETECTED [facility] Comment: This test was performed using the APTIMA(R) HPV Assay ([employer] This assay detects E6/E7 viral messenger RNA (mRNA) from 14 high-risk HPV types (16,18,31,33,35,39,45,51, 52,56,58,59,66,68). For additional information please refer to: http://education.enModus/faq/VUJ826d2 (This link is being provided for informational/ educational purposes only.) The analytical performance characteristics of this assay have been determined by [employer] [place], [place]. The modifications have not been cleared or approved by the FDA. This assay has been validated pursuant to the CLIA regulations and is used for clinical purposes. Test Performed by [facility], [address] [place] [address] Timmy Jiménez M.D., Ph.D., Director of Laboratories , CLIA [id number] Please note: Effective 11/19/2015, HPV testing will be performed using [employer]'s APTIMA test which targets mRNA. Detecting mRNA instead of DNA, as in older methods, offers significant improvements in specificity. 04/08/2018 2:39 PM EST Sanjuana Anderson MD HISTORICAL/NON ORDERABLE L ABS Final Result [facility] [address] * HM Hepatitis C Antibody (04/08/2018) Hepatitis C Antibody Nonreactive Blood Historical Provider HEALTH MAINTENANCE Final Result * HM HIV 1/2 Antigen and Antibody (04/08/2018) HIV Ag/Ab Nonreactive Historical Provider HEALTH MAINTENANCE Final Result from Last 3 Months or Most Recently Relevant to Health Maintenance Insurance [facility] C3 DENTAL-[facility] MEDICAID STAND ADULT Advance Directives Documents on File Type Date Recorded Patient Miller Head Assistant Wet Process Expl anation Advance Directives and Berta g Will 05/08/2023 1:40 PM HCP Care Teams Blunger Machine Operator Relationship Specialty Start Date End Date Justin, MD Sanjuana [address] [place] [address] PCP - General Family Medicine 03/09/18 Wen Gan MD [facility] [address] [address] Hematology and Oncology 01/27/24 Ebony Lal PsyD [facility] Krystina [facility] [address] [place] [phone] Psychiatry 01/27/24 Shania Xiao MD [address] [place] [address] [address], [place] [address] Orthopaedic Surgery 01/27/24
--- OUTSIDE RECORDS SUMMARY | 2025-02-24 16:36 | XMS_ITS | Encounter Summary ---
Author Organization [employer] Address [address] [place] [address] 7t [place] [address] Care Team Providers Care Supplier Manager Name Role Phone Sanjuana Anderson MD Primary Care Provider +1- [phone] Reason for Visit * Reason Onset Date Comments Call Back Request 12/02/2024 Encounter Details Date Type Department Care Team ([facility] Contact Info) Description 12/02/2024 Telephone [facility] [address] [place] [address] Sanjuana Anderson MD [address] [place] [address] Call Back Request Social History Tobacco Use [...] EDT Returned call to Dr. Gan at [facility] ([phone]), heating and ventilation engineer who pt follows for sickle cell anemia. Dressed Poultry Grader advised her to call Dr. Anderson directly at [phone] to discuss pt's case, Dr. Gan to [...] 12/13/24. - pt is travelling to the [facility] [place] 12/16/24, Dr Gan would like labs faxed over when pt completes on dates above for her to review before pt travels to inform plan of care. Advised her will send message to Dr Anderson. * Telephone Encounter - Robert Tang - 12/02/2024 9:00 AM EDT Tc from Ever Hernandez with [facility] requesting a call back regarding pt labs and hydroxyurea treatment. Contact ever David at [phone] documented in this encounter Plan of Treatment Upcoming Encounters Date Type Department Care Team (Late st Contact Info) Description 03/01/2025 10:30 AM EST Office Visit [facility] [address] [place] [address] Sanjuana Anderson MD [address] [place] [address] documented as of this encounter Visit Diagnoses Not on filedocumented in this encounter Additional Health Concerns Assessment Noted Time PHQ-9 Depression Total Score: 11 024 3:25 PM EST documented as of this encounter Care Teams Supplier Manager Relationship Specialty Start Date End Date Sanjuana Anderson MD [address] [place] [phone] PCP - General Family Medicine 03/09/18 Ever Gan MD [facility] [address] [place] [phone] Hematology and Oncology 01/27/24 Eb[facility] PsyD [facility] [address] [place] [phone] Psychiatry 01/27/24 Shania Xiao MD 5 [facility] [address] [place], [place] Orthopaedic Surgery 01/27/24 documented as of this encounter
--- OUTSIDE RECORDS SUMMARY | 2025-02-24 16:36 | XMS_ITS | Encounter Summary ---
Author Organization [facility] Address [address] [place] [address] 7 [place] [address] Care Team Providers Care Cardiology Consultant Name Role Phone Sanjuana Anderson MD Primary Care Provider +1- [phone] Encounter Details Date Type Department Care Team (Latest Contact Info) Description 10/13/2018 Abstract [facility] CONVERSIONS Dental, Provider, DDS Social History Tobacco [...] Description 03/01/2025 10:30 AM EST Office Visit [facility] [address] [place] [address] Sanjuana Anderson MD [address] [place] [address] documented as of this encounter Visit Diagnoses Not on filedocumented in this encounter Care Teams Cardiology Consultant Relationship Specialty Start Date End Date Sanjuana Anderson MD [address] [place] [phone] PCP - General Family Medicine 03/09/18 Wen Gan MD [facility] [address] [place] [address] Hematology and Oncology 01/27/24 Ebony Lal PsyD [facility] Krystina Grajeda [address] [facility] [address] [place] [address] Psychiatry 01/27/24 Shania Xiao MD [address] [place] [address], [place] [address] Orthopaedic Surgery 01/27/24 documented as of this encounter
--- OUTSIDE RECORDS SUMMARY | 2025-02-24 16:36 | XMS_ITS | Encounter Summary ---
Author Organization [employer] Address [address] [facility] 7t [place] [address] Care Team Providers Care Jail Officer Name Role Phone Sanjuana Anderson MD Primary Care Provider +1- [phone] Encounter Details Date Type Department Care Team (Late st Contact Info) Description 05/31/2024 Orders Only [facility] [address] [place], [place] [phone] Sanjuana Anderson MD 230 [place] [address] Sickle cell anemia with crisis (CMS/HCC) (Primary [...] Description 03/01/2025 10:30 AM EST Office Visit [facility] [address] [place] [phone] Sanjuana Anderson MD [address] [place] [phone] documented as of this encounter Visit Diagnoses Diagnosis 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 documented in this encounter Additional Health Concerns Assessment Noted Time PHQ-9 Depression Total Score: 11 024 3:25 PM EST documented as of this encounter Care Teams Jail Officer Relationship Specialty Start Date End Date Sanjuana Anderson MD [address] [place] [phone] PCP - General Family Medicine 03/09/18 Wen Gan MD [facility] [address] [place] [address] Hematology and Oncology 01/27/24 Ebony Lal PsyD [facility] Krystina Padron [address] [place] [address] Psychiatry 01/27/24 Shania Xiao MD [address] [place] [address], [place] [address] Orthopaedic Surgery 01/27/24 documented as of this encounter
--- OUTSIDE RECORDS SUMMARY | 2025-02-24 16:36 | XMS_ITS | Encounter Summary ---
Author Organization [facility] Address [address] [place] [address] 7 [place] [address] Care Team Providers Care Appraiser Timber Name Role Phone Sanjuana Anderson MD Primary Care Provider +1- [phone] Encounter Details Date Type Department Care Team (Latest Contact Info) Description 10/12/2020 Abstract [facility] CONVERSIONS Dental, Provider, DDS Social History [...] Description 03/01/2025 10:30 AM EST Office Visit [facility] 230 [place] [address] Sanjuana Anderson MD 230 [place] [address] documented as of this encounter Visit Diagnoses Not on filedocumented in this encounter Care Teams Appraiser Timber Relationship Specialty Start Date End Date Sanjuana Anderson MD 230 [place] [address] PCP - General Family Medicine 03/09/18 Wen Gan MD [facility] [address] [place] [address] Hematology and Oncology 01/27/24 Ebony Lal PsyD [facility] Krystina Padron [address] [place] [address] Psychiatry 01/27/24 Shania Xiao MD [address] [place] [address], [place] [address] Orthopaedic Surgery 01/27/24 documented as of this encounter
--- OUTSIDE RECORDS SUMMARY | 2025-02-24 16:36 | XMS_ITS | Encounter Summary ---
Author Organization [facility] Address [address] [place] [address] 7 [place] [address] Care Team Providers Care Patient Intake Coordinator Name Role Phone Sanjuana Anderson MD Primary Care Provider +1- [phone] Encounter Details Date Type Department Care Team (Late Contact Info) Description 08/08/2022 Abstract [facility] MEDICINE [address] [place] [address] [phone] Sanjuana Anderson MD [address] [place] [address] [phone] Social History Tobacco Use Types Packs/Day Years [...] 10:30 AM EST Office Visit [facility] [address] [place] [address] [phone] Sanjuana Anderson MD [address] [place] [address] [phone] Pending Results Name Type Priority Associated Diagnoses Date /Time Mammography Imaging Routine 07/17/2022 documented as of this encounter Visit Diagnoses Not on filedocumented in this encounter Additional Health Concerns Assessment Noted Time PHQ-9 Depression Total Score: 5 04/11/19 23 10:29 AM EST documented as of this encounter Care Teams Patient Intake Coordinator Relationship Specialty Start Date End Date Sanjuana Anderson MD [address] [place] [address] PCP - General Family Medicine 03/09/18 Wen Gan MD [facility] [address] [place] [address] Hematology and Oncology 01/27/24 Ebony Lal PsyD [facility] [address] [place] [address] Psychiatry 01/27/24 Shania Xiao MD [address] [facility] [address], [place] [address] Orthopaedic Surgery 01/27/24 documented as of this encounter
--- OUTSIDE RECORDS SUMMARY | 2025-02-24 16:36 | XMS_ITS | Encounter Summary ---
Author Organization [employer] Address [address] [facility] 7t [place] [address] Care Team Providers Care Building Maintenance Mechanic Name Role Phone Sanjuana Anderson MD Primary Care Provider +1- [phone] Encounter Details Date Type Department Care Team (Late st Contact Info) Description 11/23/2024 Orders Only [facility] MED[facility]INE 230 [place], [place] [phone] Sanjuana Anderson MD 230 [place] [address] Sickle cell 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) (Primary [...] 10:30 AM EST Office Visit [facility] 230 [place] [address] Sanjuana Anderson MD 230 [place] [address] documented as of this encounter Procedures Procedure [...] EDT) Pathologist Review - CBC SEE NOTE [facility] Comment:- Anemia with sickle cells, target cells, macrocytosis,Soriano-Gutierrez bodies, anisocytosis and marked increase innucleated RBC's, features in keeping with patient's knownsickle cell anemia. Marrow stress is noted.- Leukopenia: consider infection vs drug/medication effectvs other etiologies.Reviewed by Maya Bland MD 11/23/2024 4:49 PM EDT 11/23/2024 4:49 PM EDT Sanjuana Anderson MD LAB BLOOD ORDERABLES Final Result Performing Organization Address [facility]/ZIP Co de Phone Number [facility] [address] [place] [phone] * (ABNORMAL) Basic Metabolic Panel (11/23/2024 4:49 PM EDT) Sodium 139 135 - 145 mmol/L [facility] Potassium 3.9 3.3 - 5.1 mmol/L [facility] Chloride 109(H) 96 - 108 mmol/L [facility] Carbon Dioxide 25 22 - 29 mmol/L [facility] Anion Gap 9(L) 12 - 20 [facility] Urea Nitrogen (BUN) 11 9 - 16 mg/dL [facility] Creatinine, Serum 0.64 0.5 - 1.4 mg/dL [facility] Estimated Glomerular Filt Rate >60 [facility] Comment:Chronic Kidney Disea se: Estimated GFR < 60 mL/min/1.09t2Halnre Kidney Disease: Estimated GFR < 15 mL/min/1.73m2 Glucose 93 60 - 115 mg/dL [facility] Calcium 8.8 8.4 - 10.2 mg/dL [facility] Blood Venous blood specimen / Unknown 11/23/2024 4:49 PM EDT 11/23/2024 4:49 PM EDT Sanjuana Anderson MD LAB BLOOD ORDERABLES Final Result Performing Organization Address [facility]/ZIP Co de Phone Number [facility] [address] [place] [phone] * (ABNORMAL) CBC (11/23/2024 4:49 PM EDT) White Blood Count 4.5(L) 4.8 - 10.8 X10*3/uL [facility] Red Blood Count 1.91(L) 4.20 - 5.50 X10*6/uL [facility] Hemoglobin 7.2(L) 12.0 - 16.0 g/dl [facility] Hematocrit 20.0(LL) 37.0 - 47.0 % [facility] Comment:RESULTS OF HCT HARVEY D TO AND READ BACK BY DR ALEX CHENEY 11/23/24 AT 1724 BY GRADY. Mean Corpuscular Volume 104.7(H) 80.0 - 98.0 fL [facility] Mean Corpuscular Hemoglobin 37.7(H) 27.0 - 33.0 pg [facility] Mean Corpuscular HGB Conc 36.0(H) 31.0 - 35.0 g/dl [facility] Red Cell Distribution Width 18.9(H) 11.0 - 16.0 % [facility] Platelet Count 229 160 - 400 X10*3/uL [facility] Mean Platelet Volume 10.3 9.4 - 12.3 fL [facility] NRBC Pct Auto 50.2(H) 0.0 - 0.2 /100WBC [facility] NRBC Abs Auto 2.280(H) 0.0 - 0.012 X10*3/uL [facility] Blood Venous blood specimen / Unknown 11/23/2024 4:49 PM EDT 11/23/2024 4:49 PM EDT us Sanjuana Anderson MD LAB BLOOD ORDERABLES Final Result [facility] [address] [place] [phone] documented in this encounter Visit Diagnoses Diagnosis Sickle cell 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) (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 [address] [place] [address] Hematology and Oncology 01/27/24 Ebony Lal PsyD [facility] [address] [place] [address] Psychiatry 01/27/24 Shania Xiao MD [address] [place] [address], [place] [address] Orthopaedic Surgery 01/27/24 documented as of this encounter
--- OUTSIDE RECORDS SUMMARY | 2025-02-24 16:36 | XMS_ITS | Encounter Summary ---
Author Organization [employer] Address [address] [facility] 7t [place] [address] Care Team Providers Care Law Office Receptionist Name Role Phone Sanjuana Anderson MD Primary Care Provider +1- [phone] Reason for Visit * Reason Onset Date Comments PT1 04/19/2024 Encounter Details Date Type Department Care Team ([facility] Contact Info) Description 04/19/2024 Telephone [facility] MEDICINE 230 [place] [address] Sanjuana Anderson MD 230 [place] [address] PT1 Social History Tobacco Use Types Packs/Day [...] Y/N: Yes Provider name or facility name: [facility] - [address] [place], [place] [address]on [place] [address] Escort needed: Y/N: Yes Do you have a wheelchair: Y/N: Yes If yes- Manual or electric: Manual Visits: (2x monthly) documented in this encounter Plan of Treatment Upcoming Encounters Date Type Department Care Team (Late st Contact Info) Description 03/01/2025 10:30 AM EST Office Visit [facility] MEDICINE [address] [place] [address] Sanjuana Anderson MD [address] [place] [address] documented as of this encounter Visit Diagnoses Not on filedocumented in this encounter Additional Health Concerns Assessment Noted Time PHQ-9 Depression Total Score: 11 024 3:25 PM EST documented as of this encounter Care Teams Law Office Receptionist Relationship Specialty Start Date End Date Sanjuana Anderson MD 230 [place] [address] PCP - General Family Medicine 03/09/18 Wen Gan MD [facility] [address] [place] [address] Hematology and Oncology 01/27/24 Ebony Lal PsyD [facility] [address] [place] [address] Psychiatry 01/27/24 Shania Xiao MD [address] [place] [address], [place] [address] Orthopaedic Surgery 01/27/24 documented as of this encounter
--- OUTSIDE RECORDS SUMMARY | 2025-02-24 16:36 | XMS_ITS | Encounter Summary ---
Author Organization [facility] Address [address] [place] [address] 7 [place] [address] Care Team Providers Care Dry Dip Worker Name Role Phone Sanjuana Anderson MD Primary Care Provider +1- [phone] Encounter Details Date Type Department Care Team (Late Contact Info) Description 08/26/2022 Abstract [facility] MEDICINE [address] [place] [address] [phone] Sanjuana Anderson MD [address] [place] [address] [phone] Social History Tobacco Use Types Packs/Day Years [...] Description 03/01/2025 10:30 AM EST Office Visit [facility] MED[facility] [address] [place] [address] [phone] Sanjuana Anderson MD [address] [place] [address] [phone] documented as of this encounter Procedures Procedure [...] documented as of this encounter Care Teams Dry Dip Worker Relationship Specialty Start Date End Date Sanjuana Anderson MD 230 [place] [address] PCP - General Family Medicine 03/09/18 Wen Gan MD [facility] Medical On[facility] [address] [place] [address] Hematology and Oncology 01/27/24 Ebony Lal PsyD [facility] Krystina [facility] [address] [place] [address] Psychiatry 01/27/24 Shania Xiao MD [address] [place] [address], [place] [address] Orthopaedic Surgery 01/27/24 documented as of this encounter
--- OUTSIDE RECORDS SUMMARY | 2025-02-24 16:36 | XMS_ITS | Encounter Summary ---
Author Organization [employer] Address [address] [place] [address] 7 [place] [address] Care Team Providers Care Supervisor Mold Construction Name Role Phone Sanjuana Anderson MD Primary Care Provider +1- [phone] Reason for Visit * Reason Comments Pre-visit Planning Pre-visit planning - LVM Encounter Details Date Type Department Care Team ([facility] Contact Info) Description 02/20/2025 Patient Outreach [facility] MEDICINE 230 [place] [address] Sanjuana Anderson MD 230 [place] [address] Pre-visit Planning (Pre-visit planning - LVM ) Social History Tobacco Use Types Packs/Day Years [...] AM EDT documented as of this encounter Progress Notes * Minerva Higgins - 02/20/2025 12:51 PM EST JUNE Greene placed outbound call to patient to complete pre-visit planning. No answer at this time. Patient name and were not confirmed. CC left voicemail requesting return call. Direct contact information provided. documented in this encounter Plan of Treatment Upcoming Encounters Date Type Department Care Team (Late st Contact Info) Description 03/01/2025 10:30 AM EST Office Visit [facility] MEDICINE [address] [place] [address] Sanjuana Anderson MD 230 [place] [address] documented as of this encounter Visit Diagnoses Not on filedocumented in this encounter Additional Health Concerns Assessment Noted Time PHQ-9 Depression Total Score: 11 024 3:25 PM EST documented as of this encounter Care Teams Supervisor Mold Construction Relationship Specialty Start Date End Date Sanjuana Anderson MD 230 [place] [address] PCP - General Family Medicine 03/09/18 Wen Gan MD [facility] On[facility] [address] [place] [address] Hematology and Oncology 01/27/24 Ebony Lal PsyD [facility] Krystina [facility] [address] [place] [address] Psychiatry 01/27/24 Shania Xiao MD [address] [place] [address], [place] [address] Orthopaedic Surgery 01/27/24 documented as of this encounter
--- OUTSIDE RECORDS SUMMARY | 2025-02-24 16:36 | XMS_ITS | Encounter Summary ---
Author Organization [facility] Address [address] [place] [address] 7t [place] [address] Care Team Providers Care Parts Clerk Name Role Phone Sanjuana Anderson MD Primary Care Provider +1- [phone] Reason for Visit * Reason Onset Date Comments triage 07/09/2022 Encounter Details Date Type Department Care Team ([facility] st Contact Info) Description 07/09/2022 Telephone [facility] MEDICINE 230 [place], [place] [phone] Sanjuana Anderson MD 230 [place], [place] [phone] triage Social History Tobacco Use Types Packs/Day [...] 07/09/2022 1:11 PM EDT Triage call with [employer] ID [id number] Pt reports since yesterday started with left [...] denies numbness, cough. Advised to come to [facility] today to be seen and Pt [...] acuity questions The caller accepted this outcome Arabic speaker documented in this encounter Plan of Treatment Upcoming Encounters Date Type Department Care Team (Late st Contact Info) Description 03/01/2025 10:30 AM EST Office Visit [facility] MEDICINE 230 [place] [address] Sanjuana Anderson MD [address] [place] [address] documented as of this encounter Visit Diagnoses Not on filedocumented in this encounter Additional Health Concerns Assessment Noted Time PHQ-9 Depression Total Score: 5 04/11/19 23 10:29 AM EST documented as of this encounter Care Teams Parts Clerk Relationship Specialty Start Date End Date Sanjuana Anderson MD 230 [place] [address] PCP - General Family Medicine 03/09/18 Wen Gan MD [facility] On[facility] [address] [place] [phone] Hematology and Oncology 01/27/24 [facility] Ps[facility]D [facility] [address] [place] [phone] Psychiatry 01/27/24 Shania Xiao MD [address] [address], [address] [place], [place] [phone] Orthopaedic Surgery 01/27/24 documented as of this encounter
== END 2025-02-24 15:38 | disposition home or self-care (01) ==
LOC: HO.MAMMO 15:37
PROVIDERS: PCP Family Medicine; Visit Provider Family Medicine
DX: Z12.31 Encounter for screening mammogram for malignant neoplasm of breast (principal)
CPT/HCPCS: 77063; 77067

== ENCOUNTER → 2025-02-24 15:45 | Outpatient (BNV) | payer MEDICAID, SELFPAY | PROVIDERS: PCP Family Medicine; Visit Provider Internal Medicine | DX: Z12.31 Encounter for screening mammogram for malignant neoplasm of breast (principal) | CPT/HCPCS: 77063; 77067 ==